=== PATIENT | male | born 1955 | race Caucasian/White ===

== ENCOUNTER 2018-01-31 18:08 | Observation (INO) ==
[2018-01-31] MEDS ORDERED: Sod Chloride 0.9% Inj 1,000 ML IV.SIG ONE (18:55)
--- NOTE | 2018-01-31 19:18 | ED ---
HPI General Chief Complaint: Altered Mental Status Stated Complaint: Poss AMS Time Seen by Provider: 01/31/18 18:38 Source: patient Mode of arrival: EMS Limitations: no limitations History of Present Illness HPI narrative: 62-year-old male with a history of dementia, Parkinson's disease , and schizophrenia presents emergency department via [facility] from [facility] living [facility] for altered mental status. According to EVAC, the facility said that patient had been acting abnormal. Note that patient had been to facility for 3 days. Patient says that he was brought to the emergency department because he has been "shaking", particularly his right hand. Patient feels like his normal self and does not feel altered as his facility states that he is. He denies fever, chills, chest pain, shortness breath, abdominal pain, back pain, leg pain. Patient denies significant weakness or any unusual sensations. Related Data Home Medications Medication Instructions Recorded Confirmed benztropine 2 mg PO BID 01/31/18 01/31/18 benztropine [Cogentin] 1 mg IM BID 01/31/18 01/31/18 docusate sodium [Colace] 100 mg PO BID 01/31/18 01/31/18 haloperidol decanoate 100 mg IM Q4W 01/31/18 01/31/18 levothyroxine [Synthroid] 100 mcg PO DAILY 01/31/18 01/31/18 mirtazapine 15 mg PO HS 01/31/18 01/31/18 olanzapine [Zyprexa] 20 mg PO DAILY 01/31/18 01/31/18 Allergies Allergy/AdvReac Type Severity Reaction Status Date / Time No Known Allergies Allergy Verified 01/31/18 18:22 Review of Systems Except as stated in HPI: all other systems reviewed are negative [facility] Medical History Medical History Dementia (Acute) Hypothyroidism (Acute) Parkinson disease (Acute) Schizophrenia (Acute) Smoker (Acute) Surgical History Surgical History No history of previous surgery (Acute) Family History Family History Other Family history non-contributory Social History Social History Substance History: No History of Abuse Second Hand Smoke Exposure: No Smoking Status: Never smoker Tobacco Type: Cigarettes How Often Do You Have a Drink Containing Alcohol: Never Recent Travel in [facility] within the Last 8 Weeks: No Recent Out of Country Travel within the Last 8 Weeks: No Immunization History Tetanus Immunization: >5 Years Hx Influenza Vaccine This Season: Yes Exam Narrative Exam Narrative: GENERAL: Well-developed, well-nourished in no apparent distress SKIN: Focused skin assessment warm/dry. HEAD: Atraumatic. Normocephalic. EYES: Pupils equal and round. No scleral icterus. No injection or drainage. EOMI ENT: No nasal bleeding or discharge. Mucous membranes pink and moist. NECK: Trachea midline. No JVD. No lymphadenopathy CARDIOVASCULAR: Regular rate and rhythm. No murmur appreciated. RESPIRATORY: No accessory muscle use. Clear to auscultation. Breath sounds equal bilaterally. GASTROINTESTINAL: Abdomen soft, non-tender, nondistended. Hepatic and splenic margins not palpable. MUSCULOSKELETAL: No obvious deformities. No clubbing. No cyanosis. No edema. NEUROLOGICAL: Awake and alert. No obvious cranial nerve deficits. Motor grossly within normal limits. Normal speech. PSYCHIATRIC: Appropriate mood and affect; insight and judgment normal. Course Initial Documented Vital Signs Temperature 98.3 F 01/31/18 18:20 Pulse Rate 93 H 01/31/18 18:20 Respiratory Rate 20 01/31/18 18:20 Blood Pressure 155/78 H 01/31/18 18:20 Pulse Oximetry 98 01/31/18 18:20 Last Documented Vital Signs Temperature 98.3 F 02/01/18 07:58 Pulse Rate 99 H 02/01/18 07:58 Respiratory Rate 16 02/01/18 07:58 Blood Pressure 182/94 H 02/01/18 07:58 Pulse Oximetry 95 02/01/18 07:58 Medical Decision Making CHRIS Attestation CHRIS supervised visit: Yes Attestation: I, Dr. Anthony, have reviewed the advance practice practitioner's documentation and am in agreement, met with the patient face to face, made the diagnosis, and the medical decision making was done by me. *My assessment and Findings: Patient is a 62-year-old male seen and examined by me in, apparently alert and awake and oriented when first arrived I find the patient to point restraints. When asking nursing she was dealing with a critically ill patient she states she had to restrain him because he was attempting to pull out his own IVs. The patient on my examination is stating that "he lives in the [facility]". He is oriented to self only. He states he is here because of a 45 caliber weapon. He seems to ramble and sometimes incoherent. He states that Ye told him something about the weapon but he cannot tell me what. Is unclear as to whether he is actually had a weapon. We have attempted to reach [facility] unsuccessfully currently and will continue to try and reach them for collateral history. I have added on a psychiatric screen. Shortly after my initial evaluation patient was brought to CAT scan on his way back he is now starting to scream, appears to be having what appears to be some sundowning syndrome. Labs have been reviewed and take, did receive a liter of fluid, mild elevation in troponin a good well to 0.06 which is equivocal. EKG reviewed by me is limited by artifact but does not appear to show any acute STEMI. I have placed this patient under BA. MDM Narrative Medical decision making narrative: 62-year-old male presents emergency department via [facility] from [facility] assisted living facility with altered mental status. According to EVAC, patient had been in the assisted living facility for about 3 days and decided to transport him to the emergency department for altered mental status. EVAC states patient had been shaking more frequently. Patient has a history of dementia, schizophrenia, and "frequent disorientation and confusion". Unfortunately, I do not have any further information regarding the characteristics of his altered mental status. Upon evaluation in the patient, patient states that he feels his usual self and denies any unusual unusual sensations or alterations in his mental. He denies chest pain, fever, chills or any other complaints. Upon reevaluation, patient removed his IV and states "it did not belong there". Patient also questions the reasoning for the chest x-ray and says it is not necessary. I advised that because of his altered mental status that it would be a good idea to evaluate thoroughly. I attempted to call [facility] SN[facility] 5 times while pt was in the ED without success. Labs are concerning for CK over 600, Troponin mildly elevated 0.05. No previous for comparison. 1L NS administered. CT head stable. [employer] initiated for suicidal ideations by Dr. Anthony. I recommend patient be admitted for elevated troponin and CK. Trend numbers and monitor, plan to send to psych for eval. Differential Diagnosis Differential Diagnosis: AMS, intoxication, sundowners, dementia Lab Data Result diagrams: 01/31/18 18:40 01/31/18 18:40 Lab Results 07/31/18 07/31/18 07/31/18 Range/Units 18:40 18:40 18:40 WBC 7.0 (4.0-11.0) th/mm3 RBC 4.37 L (4.50-5.90) mil/mm3 Hgb 13.4 (13.0-17.0) gm/dL Hct 39.9 (39.0-51.0) % MCV 91.3 (80.0-100.0) fL MCH 30.6 (27.0-34.0) pg MCHC 33.5 (32.0-36.0) % RDW 14.7 (11.6-17.2) % Plt Count 255 (150-450) th/mm3 MPV 7.2 (7.0-11.0) fL Neut % (Auto) 78.3 H (16.0-70.0) % Lymph % (Auto) 8.1 L (9.0-44.0) % [place] % (Auto) 9.3 H (0.0-8.0) % Eos % (Auto) 1.7 (0.0-4.0) % Baso % (Auto) 2.6 H (0.0-2.0) % Neut # (Auto) 5.5 (1.8-7.7) th/mm3 Lymph # (Auto) 0.6 L (1.0-4.8) th/mm3 [place] # (Auto) 0.7 (0.0-0.9) th/mm3 Eos # (Auto) 0.1 (0.0-0.4) th/mm3 Baso # (Auto) 0.2 (0.0-0.2) th/mm3 WBC Differential . Differential Comment Auto diff final PT 10.2 (9.8-11.6) sec INR 1.0 Ratio APTT 25.6 (24.3-30.1) sec Sodium (136-145) meq/L Potassium (3.5-5.1) meq/L Chloride (98-107) meq/L Carbon Dioxide (21.0-32.0) meq/L Anion Gap (5-15) meq/L BUN (7-18) mg/dL Creatinine (0.60-1.30) mg/dL Estimated GFR (>89) mL/min Random Glucose (74-106) mg/dL Calcium (8.5-10.1) mg/dL Total Bilirubin (0.2-1.0) mg/dL AST (15-37) U/L ALT (12-78) U/L Alkaline Phosphatase (45-117) U/L Ammonia (11-32) mcmol/L Total Creatine Kinase (39-308) U/L CK-MB (CK-2) (0.5-3.6) ng/mL CK-MB (CK-2) % (0.0-4.0) % Troponin I (0.02-0.05) ng/mL Total Protein (6.4-8.2) g/dL Albumin (3.4-5.0) g/dL TSH 1.830 (0.358-3.740) uIU/mL 01/31/18 01/31/18 Range/Units 18:40 19:00 WBC (4.0-11.0) th/mm3 RBC (4.50-5.90) mil/mm3 Hgb (13.0-17.0) gm/dL Hct (39.0-51.0) % MCV (80.0-100.0) fL MCH (27.0-34.0) pg MCHC (32.0-36.0) % RDW (11.6-17.2) % Plt Count (150-450) th/mm3 MPV (7.0-11.0) fL Neut % (Auto) (16.0-70.0) % Lymph % (Auto) (9.0-44.0) % [place] % (Auto) (0.0-8.0) % Eos % (Auto) (0.0-4.0) % Baso % (Auto) (0.0-2.0) % Neut # (Auto) (1.8-7.7) th/mm3 Lymph # (Auto) (1.0-4.8) th/mm3 [place] # (Auto) (0.0-0.9) th/mm3 Eos # (Auto) (0.0-0.4) th/mm3 Baso # (Auto) (0.0-0.2) th/mm3 WBC Differential Differential Comment PT (9.8-11.6) sec INR Ratio APTT (24.3-30.1) sec Sodium 139 (136-145) meq/L Potassium 4.0 (3.5-5.1) meq/L Chloride 108 H (98-107) meq/L Carbon Dioxide 25.3 (21.0-32.0) meq/L Anion Gap 6 (5-15) meq/L BUN 19 H (7-18) mg/dL Creatinine 1.03 (0.60-1.30) mg/dL Estimated GFR 74 L (>89) mL/min Random Glucose 105 (74-106) mg/dL Calcium 8.4 L (8.5-10.1) mg/dL Total Bilirubin 0.4 (0.2-1.0) mg/dL AST 50 H (15-37) U/L ALT 38 (12-78) U/L Alkaline Phosphatase 130 H (45-117) U/L Ammonia 27 (11-32) mcmol/L Total Creatine Kinase 663 H (39-308) U/L CK-MB (CK-2) 5.1 H (0.5-3.6) ng/mL CK-MB (CK-2) % 0.8 (0.0-4.0) % Troponin I 0.06 H (0.02-0.05) ng/mL Total Protein 7.7 (6.4-8.2) g/dL Albumin 3.4 (3.4-5.0) g/dL TSH (0.358-3.740) uIU/mL Imaging Data Radiologist's impression: Chest X-Ray 01/31/18 18:55 CONCLUSION: No acute findings. Mild scoliosis. Head CT 01/31/18 19:22 CONCLUSION: 1. No acute intracranial abnormalities. . Discharge Plan Discharge Disposition Patient Disposition: 30 Still Patient Discharge Condition Condition: Stable Discharge Details Diagnosis: Altered mental status, Elevated troponin, Elevated CK Physicians Team ED Provider: Tobi Anthony ED Midlevel Provider: Chel Kolb Primary Care Provider: UNKNOWN, Attending Provider: Benja Bah Other Providers: Avni Julian ; Narcisa Ospina Status ED Status: Left Department Discharge Information Discharge Date/Time: 01/31/18 23:49
--- NOTE | 2018-01-31 19:53 | XR ---
EXAM DATE: 01/31/2018 7:34 PM EDT AGE/SEX: 62 years / Male INDICATIONS: Cough. CLINICAL DATA: This is the patient's initial encounter. Patient reports that signs and symptoms have been present for 1 day and indicates a pain score of 0/10. MEDICAL/SURGICAL HISTORY: Dementia. Parkinson's disease. Smoker. None. COMPARISON: No prior exams available for comparison. FINDINGS: A single AP view of the chest demonstrates the lungs to be symmetrically aerated without evidence of mass, infiltrate or effusion. The cardiomediastinal contours are unremarkable. Osseous structures a re intact. CONCLUSION: No acute findings. Mild scoliosis. Electronically signed by: Cruzito Jones MD 01/31/2018 7:52 PM EDT
[2018-01-31 20:07] LABS: Baso # (Auto) 0.2 th/mm3 (0.0-0.2); Baso % (Auto) 2.6 % (0.0-2.0); Eos # (Auto) 0.1 th/mm3 (0.0-0.4); Eos % (Auto) 1.7 % (0.0-4.0); Hematocrit 39.9 % (39.0-51.0); Hemoglobin 13.4 gm/dL (13.0-17.0); Lymph # (Auto) 0.6 th/mm3 (1.0-4.8); Lymph % (Auto) 8.1 % (9.0-44.0); Mean Corpuscular HGB Conc 33.5 % (32.0-36.0); Mean Corpuscular Hemoglobin 30.6 pg (27.0-34.0); Mean Corpuscular Volume 91.3 fL (80.0-100.0); Mean Platelet Volume 7.2 fL (7.0-11.0); Mono # (Auto) 0.7 th/mm3 (0.0-0.9); Mono % (Auto) 9.3 % (0.0-8.0); Neut # (Auto) 5.5 th/mm3 (1.8-7.7); Neut % (Auto) 78.3 % (16.0-70.0); Platelet Count 255 th/mm3 (150-450); Red Blood Count 4.37 mil/mm3 (4.50-5.90); Red Cell Distribution Width 14.7 % (11.6-17.2)
[2018-01-31 20:16] LABS: Activated Partial Thrombo Time 25.6 sec (24.3-30.1); Prothrombin Time 10.2 sec (9.8-11.6)
[2018-01-31 20:19] LABS: Alanine Aminotransferase 38 U/L (12-78); Albumin 3.4 g/dL (3.4-5.0); Anion Gap 6 meq/L (5-15); Aspartate Aminotransferase 50 U/L (15-37); Blood Urea Nitrogen 19 mg/dL (7-18); Calcium 8.4 mg/dL (8.5-10.1); Carbon Dioxide 25.3 meq/L (21.0-32.0); Chloride 108 meq/L (98-107); Glomerular Filtration Rate 74 mL/min (>89); Glucose,Random 105 mg/dL (74-106); Sodium 139 meq/L (136-145)
[2018-01-31 20:23] LABS: Alkaline Phosphatase 130 U/L (45-117); Creatine Kinase 663 U/L (39-308); Total Protein 7.7 g/dL (6.4-8.2); Troponin I 0.06 ng/mL (0.02-0.05)
--- NOTE | 2018-01-31 20:28 | CT ---
EXAM DATE: 01/31/2018 8:15 PM EDT AGE/SEX: 62 years / Male INDICATIONS: Altered mental status. CLINICAL DATA: This is the patient's initial encounter. Patient reports that signs and symptoms have been present for 1 day and indicates a pain score of 0/10. MEDICAL/SURGICAL HISTORY: None. None. RADIATION DOSE: 36.49 CTDI (mGy) COMPARISON: [facility] [place], CT BRAIN W/O CONTRAST, 12/29/2017. . TECHNIQUE: CT of the head without contrast. Using automated exposure control and adjustment of the mA and/or kV according to patient size, radiation dose was kept as low as reasonably achievable to ob tain optimal diagnostic quality images. DICOM format image data is available electronically for revi ew and comparison. FINDINGS: Cerebrum: The ventricles are normal for age. No evidence of midline shift, mass lesion, hemorrhage or acute infarction. No extraaxial fluid collections are seen. Posterior Fossa: The cerebellum and brainstem are intact. The 4th ventricle is midline. The cerebe llopontine angle is unremarkable. Extracranial: The visualized portion of the orbits is intact. Skull: The calvaria is intact. No evidence of skull fracture. CONCLUSION: 1. No acute intracranial abnormalities. . Electronically signed by: Cruzito Jones MD 01/31/2018 8:27 PM EDT
[2018-01-31 20:35] LABS: CKMB Percent 0.8 % (0.0-4.0); Creatine Kinase MB 5.1 ng/mL (0.5-3.6)
[2018-01-31] MEDS ORDERED: Temazepam 15 MG Capsule PO PRN (22:06)
[2018-01-31] MEDS ORDERED: Bisacodyl 10 MG Supp RECTAL PRN (22:06)
[2018-01-31] MEDS: Sod Chloride 0.9% Inj 1,000 ML IV.CONT SCH (22:54)
--- NOTE | 2018-02-01 00:55 | P.HPIM ---
History of Present Illness Primary Care Physician: UNKNOWN History of Present Illness: 62-year-old male with a history of dementia, Parkinson's, schizophrenia who presents from assisted living due to altered mental status. Reportedly shaking. Patient himself says that he can hear the blood in his veins, says he is hearing voices and seeing things. He says he feels fine however. Denies any chest pain, shortness breath, nausea, vomiting. He is not amenable to psychiatric assistance. The muscle pain. Review of Systems All other systems reviewed negative except as stated in HPI PMFSH - History History Provided By: Patient - Medical History Medical History: Medical History (Last Updated 01/31/18 @ 18:34 by Flory Ding) Dementia Hypothyroidism Parkinson disease Schizophrenia Smoker - Surgical History Surgical History: Surgical History (Last Updated 01/31/18 @ 18:29 by Flory Ding) No history of previous surgery - Family History Family History: Family History (Last Updated 02/01/18 @ 00:45 by German Adams MD) Other Family history non-contributory - Tobacco History Second Hand Smoke Exposure: No Tobacco Use In Past 30 Days: Yes Smoking Status: Never smoker Tobacco Type: Cigarettes - Alcohol History How Often Do You Have a Drink Containing Alcohol: Never - Substance Use History Substance History: No History of Abuse - Travel History Recent Travel in the [place] Within the Last 8 Weeks: No Recent Travel Out of the Country Within the Last 8 Weeks: No - Immunization History Tetanus Immunization: >5 Years Hx Influenza Vaccine This Season: Yes Medications and Allergies Active Medications: Active Medications Al Hydroxide/Mg Hydroxide (Milk Of Magnesia Liq) 30 ml PO Q12H PRN PRN Reason: Mild Constipation Bisacodyl (Dulcolax Supp) 10 mg RECTAL DAILY PRN PRN Reason: SEVERE CONSITIPATION Sodium Chloride (Ns Inj) 1,000 mls @ 200 mls/hr IV.CONT .Q5H KAY Last Admin: 01/31/18 22:54 Dose: 200 mls/hr Lactulose (Lactulose Liq) 30 ml PO DAILY PRN PRN Reason: SEVERE CONSITIPATION Senna/Docusate Sodium (Araseli-Colace) 1 tab PO BID KAY Sennosides (Senokot) 17.2 mg PO Q12H PRN PRN Reason: Moderate Constipation Sodium Chloride (Ns Flush) 2 ml IV.FLUSH PRN PRN PRN Reason: FLUSH AFTER USING IV ACCESS Last Admin: 01/31/18 19:07 Dose: 2 ml Temazepam (Restoril) 15 mg PO HS PRN PRN Reason: INSOMNIA Allergies Allergy/AdvReac Type Severity Reaction Status Date / Time No Known Allergies Allergy Verified 01/31/18 18:22 Home Medications Medication Instructions Recorded Confirmed Type benztropine 2 mg PO BID 01/31/18 01/31/18 History benztropine [Cogentin] 1 mg IM BID 01/31/18 01/31/18 History docusate sodium [Colace] 100 mg PO BID 01/31/18 01/31/18 History haloperidol decanoate 100 mg IM Q4W 01/31/18 01/31/18 History levothyroxine [Synthroid] 100 mcg PO DAILY 01/31/18 01/31/18 History mirtazapine 15 mg PO HS 01/31/18 01/31/18 History olanzapine [Zyprexa] 20 mg PO DAILY 01/31/18 01/31/18 History Exam Vital signs: Vital Signs 01/31/18 18:20 01/31/18 18:56 01/31/18 20:56 Temperature 98.3 F Pulse Rate 93 H 86 92 H Respiratory Rate 20 16 Blood Pressure 155/78 H 141/81 H Pulse Oximetry 98 98 95 01/31/18 23:48 02/01/18 00:00 Temperature 98.4 F Pulse Rate 89 Respiratory Rate 16 17 Blood Pressure 141/76 H Pulse Oximetry 96 Intake & Output 01/31/18 01/31/18 02/01/18 06:59 18:59 06:59 Intake Total 1000 / 1000 Balance 1000 / 1000 Weight 81.647 kg Intake: IV 1000 / 1000 NS Inj 1,000 ML @ Wide Open IV. 1000 / 1000 SIG BOLUS ONE Rx#:[id number] Narrative: GENERAL: Patient lying in bed. Appears comfortable. SKIN: Warm and dry. HEAD: Atraumatic. Normocephalic. EYES: Pupils equal and round. No scleral icterus. No injection or drainage. ENT: No nasal bleeding or discharge. Mucous membranes pink and moist. NECK: Trachea midline. No JVD. CARDIOVASCULAR: Regular rate and rhythm. RESPIRATORY: No accessory muscle use. Clear to auscultation. Breath sounds equal bilaterally. GASTROINTESTINAL: Abdomen soft, non-tender, nondistended. Hepatic and splenic margins not palpable. MUSCULOSKELETAL: Extremities without clubbing, cyanosis, or edema. No obvious deformities. NEUROLOGICAL: Awake and alert. Bilateral tremors, stiffness consistent with Parkinson's. PSYCHIATRIC: Appropriate mood and affect; insight and judgment normal. Results - Labs CBC & Chem 7: 01/31/18 18:40 01/31/18 18:40 Labs: Short CBC 01/31/18 Range/Units 18:40 WBC 7.0 (4.0-11.0) th/mm3 Hgb 13.4 (13.0-17.0) gm/dL Hct 39.9 (39.0-51.0) % Plt Count 255 (150-450) th/mm3 BMP 01/31/18 18:40 Sodium 139 Potassium 4.0 Chloride 108 H Carbon Dioxide 25.3 BUN 19 H Creatinine 1.03 Calcium 8.4 L Cardiac Enzymes 01/31/18 Range/Units 18:40 Total Creatine Kinase 663 H (39-308) U/L CK-MB (CK-2) 5.1 H (0.5-3.6) ng/mL Troponin I 0.06 H (0.02-0.05) ng/mL Liver Function 01/31/18 Range/Units 18:40 Total Bilirubin 0.4 (0.2-1.0) mg/dL AST 50 H (15-37) U/L ALT 38 (12-78) U/L Alkaline Phosphatase 130 H (45-117) U/L Albumin 3.4 (3.4-5.0) g/dL - Imaging Impressions Chest X-Ray 01/31/18 18:55 CONCLUSION: No acute findings. Mild scoliosis. Head CT 01/31/18 19:22 CONCLUSION: 1. No acute intracranial abnormalities. . Caprini VTE Risk Assessment Caprini VTE Risk Assessment: No/Low Risk (score <= 1) Caprini Risk Assessment Model: Point Value = 1 Point Value = 2 Point Value = 3 Point Value = 5 Age 41-60 Minor surgery BMI > 25 kg/m2 Swollen legs Varicose veins or History of unexplained or recurrent spontaneous Oral contraceptives or hormone replacement Sepsis (< 1 month) Serious lung disease, including pneumonia (< 1 month) Abnormal pulmonary function Acute myocardial infarction Congestive heart failure (< 1 month) History of inflammatory bowel disease Medical patient at bed rest Age 61-74 Arthroscopic surgery Major open surgery (> 45 min) Laparoscopic surgery (> 45 min) Malignancy Confined to bed (> 72 hours) Immobilizing plaster cast Central venous access Age >= 75 History of VTE Family history of VTE Factor V Leiden Prothrombin [id number] Lupus anticoagulant Anticardiolipin antibodies Elevated serum homocysteine Heparin-induced thrombocytopenia Other congenital or acquired thrombophilia Stroke (< 1 month) Elective arthroplasty Hip, pelvis, or leg fracture Acute spinal cord injury (< 1 month) Prophylaxis Regimen: Total Risk Factor Score Risk Level Prophylaxis Regimen 0-1 Low Early ambulation 2 Moderate Order ONE of the following: *Sequential Compression Device (SCD) *Heparin 5000 units SQ BID 3-4 Higher Order ONE of the following medications: *Heparin 5000 units SQ TID *Enoxaparin/Lovenox 40 mg SQ daily (WT < 150 kg, CrCl > 30 mL/min) *Enoxaparin/Lovenox 30 mg SQ daily (WT < 150 kg, CrCl > 10-29 mL/min) *Enoxaparin/Lovenox 30 mg SQ BID (WT < 150 kg, CrCl > 30 mL/min) AND/OR *Sequential Compression Device (SCD) 5 or more Highest Order ONE of the following medications: *Heparin 5000 units SQ TID (Preferred with Epidurals) *Enoxaparin/Lovenox 40 mg SQ daily (WT < 150 kg, CrCl > 30 mL/min) *Enoxaparin/Lovenox 30 mg SQ daily (WT < 150 kg, CrCl > 10-29 mL/min) *Enoxaparin/Lovenox 30 mg SQ BID (WT < 150 kg, CrCl > 30 mL/min) AND *Sequential Compression Device (SCD) Assessment and Plan - Plan //Psychosis = Consult psychiatry. //Parkinson's disease. -Very difficult situation with treatment for Parkinson's as well as history of. Will consult neurology. Hopefully can find a medication that will exacerbate his psychosis. //Elevation in creatinine kinase, mild rhabdomyolysis //Dehydration. Patient does have bilateral tremor. Uncertain chronicity. Unable to contact facility. We will hold off on neuroleptics at this time. IV fluids. Monitor. Discussed Condition With: Patient, nurse, ED physician. H&P: Quality - VTE Deep Vein Thrombosis/Pulmonary Embolism Present on Admission: No
[2018-02-01] MEDS: Sod Chloride 0.9% Inj 1,000 ML IV.CONT SCH ×2 (03:47→23:01)
--- NOTE | 2018-02-01 10:32 | P.CONNEU ---
History of Present Illness Service: Neurology Consult date: 02/01/18 Requesting Physician: German Adams Reason for Consult: Tremor Primary Care Provider: UNKNOWN Chief Complaint: Tremor, Altered Mental Status History of Present Illness: 62 y/o male with hx of schizophrenia since his 20s presents to the ER with altered mental status and increased tremor. Pt reports he takes Haldol for his tremors. He also states he has been having increased hallucinations. He is a poor historian and cannot tell me when he began having change in mental status or how long he has been having hallucinations. He states his tremors come and go and can be bothersome at times Review of Systems All other systems reviewed negative except as stated in HPI PMFSH - History History Provided By: Patient - Medical History Medical History: Medical History (Last Updated 01/31/18 @ 18:34 by Flory Dnig) Dementia Hypothyroidism Parkinson disease Schizophrenia Smoker - Surgical History Surgical History: Surgical History (Last Updated 01/31/18 @ 18:29 by Flory Ding) No history of previous surgery - Family History Family History: Family History (Last Updated 02/01/18 @ 00:45 by German Adams MD) Other Family history non-contributory - Tobacco History Second Hand Smoke Exposure: No Tobacco Use In Past 30 Days: Yes Smoking Status: Never smoker Tobacco Type: Cigarettes - Alcohol History How Often Do You Have a Drink Containing Alcohol: Never - Substance Use History Substance History: No History of Abuse - Travel History Recent Travel in the [place] Within the Last 8 Weeks: No Recent Travel Out of the Country Within the Last 8 Weeks: No - Immunization History Tetanus Immunization: >5 Years Hx Influenza Vaccine This Season: Yes Medications and Allergies Allergies Allergy/AdvReac Type Severity Reaction Status Date / Time No Known Allergies Allergy Verified 01/31/18 18:22 Home Medications Medication Instructions Recorded Confirmed Type benztropine 2 mg PO BID 01/31/18 01/31/18 History benztropine [Cogentin] 1 mg IM BID 01/31/18 01/31/18 History docusate sodium [Colace] 100 mg PO BID 01/31/18 01/31/18 History haloperidol decanoate 100 mg IM Q4W 01/31/18 01/31/18 History levothyroxine [Synthroid] 100 mcg PO DAILY 01/31/18 01/31/18 History mirtazapine 15 mg PO HS 01/31/18 01/31/18 History olanzapine [Zyprexa] 20 mg PO DAILY 01/31/18 01/31/18 History Active Medications: Active Medications Al Hydroxide/Mg Hydroxide (Milk Of Magnesia Liq) 30 ml PO Q12H PRN PRN Reason: Mild Constipation Bisacodyl (Dulcolax Supp) 10 mg RECTAL DAILY PRN PRN Reason: SEVERE CONSITIPATION Clonidine HCl (Catapres) 0.1 mg PO Q6H PRN PRN Reason: SBP>180, DBP>100, HR>65 Docusate Sodium (Colace) 100 mg PO BID [facility] Sodium Chloride (Ns Inj) 1,000 mls @ 100 mls/hr IV.CONT .Q10H [facility] Last Admin: 02/01/18 03:47 Dose: 200 mls/hr Lactulose (Lactulose Liq) 30 ml PO DAILY PRN PRN Reason: SEVERE CONSITIPATION Levothyroxine Sodium (Synthroid) 100 mcg PO DAILY@0600 [facility] Senna/Docusate Sodium (Araseli-Colace) 1 tab PO BID [facility] Sennosides (Senokot) 17.2 mg PO Q12H PRN PRN Reason: Moderate Constipation Sodium Chloride (Ns Flush) 2 ml IV.FLUSH PRN PRN PRN Reason: FLUSH AFTER USING IV ACCESS Last Admin: 01/31/18 19:07 Dose: 2 ml Temazepam (Restoril) 15 mg PO HS PRN PRN Reason: INSOMNIA Exam Vital signs: Vital Signs 01/31/18 18:20 01/31/18 18:56 01/31/18 20:56 Temperature 98.3 F Pulse Rate 93 H 86 92 H Respiratory Rate 20 16 Blood Pressure 155/78 H 141/81 H Pulse Oximetry 98 98 95 01/31/18 23:48 02/01/18 00:00 02/01/18 04:00 Temperature 98.4 F 98.5 F Pulse Rate 89 81 Respiratory Rate 16 17 17 Blood Pressure 141/76 H 123/73 Pulse Oximetry 96 96 02/01/18 07:58 Temperature 98.3 F Pulse Rate 99 H Respiratory Rate 16 Blood Pressure 182/94 H Pulse Oximetry 95 Intake & Output 01/31/18 02/01/18 02/01/18 18:59 06:59 18:59 Intake Total 1999 Balance 1999 Weight 81.647 kg Intake: IV 1999 NS Inj 1,000 ML @ 200 mls/hr IV 999 .CONT .Q5H KAY Rx#:[id number] NS Inj 1,000 ML @ Wide Open IV. 999 SIG BOLUS ONE Rx#:[id number] - Constitutional no acute distress, somnolent - Routine HEENT Exam Head: Present: normocephalic, atraumatic Eye: Present: EOMI, PERRL - Routine Neck Exam Absent: carotid bruit - Routine Cardiovascular Exam Present: RRR - Routine Neurological Exam Pt is somnolent, though opens his eyes to command, often falls asleep during exam. Knows his name, date: [birth year], 1991, President: [place], place: [place] Intermittently follows commands. EOMi, PERRL, mild facial masking, right hand and leg rest tremor intermittently, no action tremor, no cogwheeling, moving arms against gravity, does not follow to move legs, withdraws from stimuli in feet, toes down going, f-n-f intact, does not follow for finger taps, gait withheld, speech is slow and hypophonic Results - Labs CBC & Chem 7: 01/31/18 18:40 01/31/18 18:40 Labs: Laboratory Results - last 24 hr 01/31/18 01/31/18 01/31/18 18:40 18:40 18:40 WBC 7.0 RBC 4.37 L Hgb 13.4 Hct 39.9 MCV 91.3 MCH 30.6 MCHC 33.5 RDW 14.7 Plt Count 255 MPV 7.2 Neut % (Auto) 78.3 H Lymph % (Auto) 8.1 L [place] % (Auto) 9.3 H Eos % (Auto) 1.7 Baso % (Auto) 2.6 H Neut # (Auto) 5.5 Lymph # (Auto) 0.6 L [place] # (Auto) 0.7 Eos # (Auto) 0.1 Baso # (Auto) 0.2 WBC Differential . Differential Comment Auto diff final PT 10.2 INR 1.0 APTT 25.6 Sodium Potassium Chloride Carbon Dioxide Anion Gap BUN Creatinine Estimated GFR Random Glucose Calcium Total Bilirubin AST ALT Alkaline Phosphatase Ammonia Total Creatine Kinase CK-MB (CK-2) CK-MB (CK-2) % Troponin I Total Protein Albumin TSH 1.830 01/31/18 01/31/18 18:40 19:00 WBC RBC Hgb Hct MCV MCH MCHC RDW Plt Count MPV Neut % (Auto) Lymph % (Auto) [place] % (Auto) Eos % (Auto) Baso % (Auto) Neut # (Auto) Lymph # (Auto) [place] # (Auto) Eos # (Auto) Baso # (Auto) WBC Differential Differential Comment PT INR APTT Sodium 139 Potassium 4.0 Chloride 108 H Carbon Dioxide 25.3 Anion Gap 6 BUN 19 H Creatinine 1.03 Estimated GFR 74 L Random Glucose 105 Calcium 8.4 L Total Bilirubin 0.4 AST 50 H ALT 38 Alkaline Phosphatase 130 H Ammonia 27 Total Creatine Kinase 663 H CK-MB (CK-2) 5.1 H CK-MB (CK-2) % 0.8 Troponin I 0.06 H Total Protein 7.7 Albumin 3.4 TSH - Imaging Impressions Chest X-Ray 01/31/18 18:55 CONCLUSION: No acute findings. Mild scoliosis. Head CT 01/31/18 19:22 CONCLUSION: 1. No acute intracranial abnormalities. . Review/Management - Review/Management Plan: CT head was unremarkable CXR unremarkable ammonia wnl UA pending will check EEG PD vs secondary PD due to medications, pt on Haldol and Olanzapine Hallucinations Hx of Schizophrenia tremors are mild, intermittent and no cogwheeling rigidity would avoid adding dopaminergic medications as these can increase confusion and hallucinations would hold benztropine or try to lower dose if possible as this can also contribute to hallucinations agree with psychiatry consult Addendum note pt seen examined d/w PA agree to impression,plan defer rx changes to psychiatry. eeg to be done.
--- NOTE | 2018-02-01 10:32 | ECG ---
Date Performed: 01/31/2018 Time Performed: 19:53:19 PTAGE: 62 years EKG: Sinus rhythm VOLTAGE CRITERIA FOR LVH ABNORMAL ECG Significant baseline artifact NO PREVIOUS TRACING DOCTOR: Janel Carl Interpretating Date/Time 02/01/2018 10:31:08
[2018-02-01] MEDS: Docusate Sodium 100 MG Capsule PO SCH ×2 (12:34→23:01)
[2018-02-01] MEDS: Senna/Docusate Sodium 8.6/50 MG Tablet PO SCH ×2 (12:34→23:01)
[2018-02-01] MEDS: Levothyroxine 100 MCG Tablet PO SCH (12:38)
--- NOTE | 2018-02-01 14:14 | P.CONPSY ---
Provisional Diagnosis Admission Date: January 31, 2018 22:06 [place] I.: Schizophrenia, dementia History of Present Illness Service: Medicine Primary Care Provider: UNKNOWN Chief Complaint: Tremor, Altered Mental Status History of Present Illness: The patient is a 62 -year-old man, domiciled in [facility], with hx of schizophrenia since his 20s, dementia, he is on olanzapine 20 mg at bedtime, Remeron 15 mg, who presents to the ER with altered mental status and increased tremor. He also states he has been having increased hallucinations. He is a poor historian and cannot tell me when he began having change in mental status or how long he has been having hallucinations. He states his tremors come and go and can be bothersome at times. The patient reports that he has been seeing his sister tried to treat him with a 45 gun. The patient is oppositional, irritable, just answer selectively to some of my questions. He does denies suicidal enemas ideation, he denies visual and auditory hallucinations at this moment. The patient is oriented to person, but confused and partially oriented in time and place. The patient was given olanzapine 10 mg IM previously to this encounter due to agitation. He was already seen by neurology given his tremors: CT head was unremarkable. CXR unremarkable ammonia wnl. Urine is pending. Neurology recommendations were : tremors are mild, intermittent and no cogwheeling rigiditywould avoid adding dopaminergic medications as these can increase confusion and hallucinations. would hold benztropine or try to lower dose if possible as this can also contribute to hallucinations agree with psychiatry consult. [facility] - History History Provided By: Patient - Medical History Medical History: Medical History (Last Updated 01/31/18 @ 18:34 by Flory Ding) Dementia Hypothyroidism Parkinson disease Schizophrenia Smoker - Surgical History Surgical History: Surgical History (Last Updated 01/31/18 @ 18:29 by Flory Ding) No history of previous surgery - Family History Family History: Family History (Last Updated 02/01/18 @ 00:45 by German Adams MD) Other Family history non-contributory - Tobacco History Second Hand Smoke Exposure: No Tobacco Use In Past 30 Days: Yes Smoking Status: Never smoker Tobacco Type: Cigarettes - Alcohol History How Often Do You Have a Drink Containing Alcohol: Never - Substance Use History Substance History: No History of Abuse - Travel History Recent Travel in the [place] Within the Last 8 Weeks: No Recent Travel Out of the Country Within the Last 8 Weeks: No - Immunization History Tetanus Immunization: >5 Years Hx Influenza Vaccine This Season: Yes Medications and Allergies Active Medications: Active Medications Al Hydroxide/Mg Hydroxide (Milk Of Magnesia Liq) 30 ml PO Q12H PRN PRN Reason: Mild Constipation Bisacodyl (Dulcolax Supp) 10 mg RECTAL DAILY PRN PRN Reason: SEVERE CONSITIPATION Clonidine HCl (Catapres) 0.1 mg PO Q6H PRN PRN Reason: SBP>180, DBP>100, HR>65 Last Admin: 02/01/18 12:40 Dose: 0.1 mg Docusate Sodium (Colace) 100 mg PO BID [facility] Last Admin: 02/01/18 12:34 Dose: 100 mg Sodium Chloride (Ns Inj) 1,000 mls @ 100 mls/hr IV.CONT .Q10H [facility] Last Admin: 02/01/18 03:47 Dose: 200 mls/hr Lactulose (Lactulose Liq) 30 ml PO DAILY PRN PRN Reason: SEVERE CONSITIPATION Levothyroxine Sodium (Synthroid) 100 mcg PO DAILY@0600 [facility] Last Admin: 02/01/18 12:38 Dose: 100 mcg Quetiapine Fumarate (Seroquel) 25 mg PO BID [facility] Senna/Docusate Sodium (Araseli-Colace) 1 tab PO BID [facility] Last Admin: 02/01/18 12:34 Dose: 1 tab Sennosides (Senokot) 17.2 mg PO Q12H PRN PRN Reason: Moderate Constipation Sodium Chloride (Ns Flush) 2 ml IV.FLUSH PRN PRN PRN Reason: FLUSH AFTER USING IV ACCESS Last Admin: 01/31/18 19:07 Dose: 2 ml Temazepam (Restoril) 15 mg PO HS PRN PRN Reason: INSOMNIA Allergies Allergy/AdvReac Type Severity Reaction Status Date / Time No Known Allergies Allergy Verified 01/31/18 18:22 Home Medications Medication Instructions Recorded Confirmed Type benztropine 2 mg PO BID 01/31/18 01/31/18 History benztropine [Cogentin] 1 mg IM BID 01/31/18 01/31/18 History docusate sodium [Colace] 100 mg PO BID 01/31/18 01/31/18 History haloperidol decanoate 100 mg IM Q4W 01/31/18 01/31/18 History levothyroxine [Synthroid] 100 mcg PO DAILY 01/31/18 01/31/18 History mirtazapine 15 mg PO HS 01/31/18 01/31/18 History olanzapine [Zyprexa] 20 mg PO DAILY 01/31/18 01/31/18 History Exam Vital signs: Vital Signs 01/31/18 18:20 01/31/18 18:56 01/31/18 20:56 Temperature 98.3 F Pulse Rate 93 H 86 92 H Respiratory Rate 20 16 Blood Pressure 155/78 H 141/81 H Pulse Oximetry 98 98 95 01/31/18 23:48 02/01/18 00:00 02/01/18 04:00 Temperature 98.4 F 98.5 F Pulse Rate 89 81 Respiratory Rate 16 17 17 Blood Pressure 141/76 H 123/73 Pulse Oximetry 96 96 02/01/18 07:58 Temperature 98.3 F Pulse Rate 99 H Respiratory Rate 16 Blood Pressure 182/94 H Pulse Oximetry 95 Intake & Output 01/31/18 02/01/18 02/01/18 18:59 06:59 18:59 Intake Total 1999 Balance 1999 Weight 81.647 kg Intake: IV 1999 NS Inj 1,000 ML @ 200 mls/hr IV 1000 / 1000 .CONT .Q5H [facility] Rx#:[id number] NS Inj 1,000 ML @ Wide Open IV. 1000 / 1000 SIG BOLUS ONE Rx#:[id number] Mental Status Examination Appearance: Disheveled Consciousness: Clouded Orientation: Person, Place Speech: Hesitant, Slow Language: Adequate Fund of Knowledge: Adequate Memory: Impaired Mood: Oppositional Affect: Irritable Thought Process & Associations: Loose associations Thought Content: Bizarre thinking Hallucination Type: Visual Delusion Type: Paranoid Suicidal Ideation: No Suicidal Plan: No Suicidal Intention: No Homicidal Ideation: No Homicidal Plan: No Homicidal Intention: No Insight: Poor Judgment: Poor Assessment and Plan - Assessment (1) Schizophrenia Code(s): F20.9 - Schizophrenia, unspecified Status: Acute - Plan Plan: Estimated LOS: [] days On psychiatric evaluation today the patient presents quite oppositional and irritable, he endorses visual hallucinations "I am watching my sister trying to treatment with a 45". Allegedly, the patient also has been agitated, aggressive. He has psychiatric history of schizophrenia for many years, psychiatric hospitalizations, given her level of psychosis, the patient will be admitted in psychiatry. However, additional medical reasons for psychosis and delirium and she will be investigated, urine test is still pending. I will restart the olanzapine 20 mg at bedtime, Remeron 50 mg at bedtime. Avoid benzodiazepines and anticholinergic medications since this medication can worsen cognition. Case discussed with primary medical team Justification for Continued Inpatient Stay: To be admitted in psychiatry was medically stable
--- NOTE | 2018-02-01 16:24 | P.PN ---
Subjective Interval history: Follow-up visit dementia, Parkinson's, schizophrenia, altered mental status. Patient seen and examined today. Sister at the bedside, Kristen. Patient is slow to respond to any questions and commands. Able to follow some. Denies pain or discomfort. Denies headache, dizziness. He repetitively saying " please don't make me think hard." When asked if he is hallucinating seeing and hearing things patient replies "they have all been erased." He is not able to elaborate on this response. Physical Exam Vital signs: Vital Signs 01/31/18 18:20 01/31/18 18:56 01/31/18 20:56 Temperature 98.3 F Pulse Rate 93 H 86 92 H Respiratory Rate 20 16 Blood Pressure 155/78 H 141/81 H Pulse Oximetry 98 98 95 01/31/18 23:48 02/01/18 00:00 02/01/18 04:00 Temperature 98.4 F 98.5 F Pulse Rate 89 81 Respiratory Rate 16 17 17 Blood Pressure 141/76 H 123/73 Pulse Oximetry 96 96 02/01/18 07:58 02/01/18 16:00 Temperature 98.3 F 98.1 F Pulse Rate 99 H 88 Respiratory Rate 16 16 Blood Pressure 182/94 H 143/71 H Pulse Oximetry 95 97 Intake & Output 01/31/18 02/01/18 02/01/18 18:59 06:59 18:59 Intake Total 1999 Balance 1999 Weight 81.647 kg Intake: IV 1999 NS Inj 1,000 ML @ 200 mls/hr IV 1000 / 1000 .CONT .Q5H KAY Rx#:[id number] NS Inj 1,000 ML @ Wide Open IV. 1000 / 1000 SIG BOLUS ONE Rx#:[id number] Narrative: GENERAL: This is a thin appearing patient in no apparent distress. SKIN: Warm and dry HEENT: Normocephalic. Pupils equal round and reactive. Nose without bleeding. Airway patent. NECK: Trachea midline.Supple. CARDIOVASCULAR: Regular rate and rhythm without murmurs, gallops, or rubs. RESPIRATORY: Clear to auscultation. Breath sounds equal bilaterally. No wheezes , rales, or rhonchi. GASTROINTESTINAL: Abdomen soft, non-tender, nondistended. Bowel Sounds normoactive x4. MUSCULOSKELETAL: Extremities without clubbing, cyanosis, or edema. NEUROLOGICAL: Awake and alert. Moves all extremities, occasional rigidity noted. Slow speech. Results - Labs CBC & Chem 7: 01/31/18 18:40 01/31/18 18:40 Laboratory Results - last 24 hr 01/31/18 01/31/18 01/31/18 18:40 18:40 18:40 WBC 7.0 RBC 4.37 L Hgb 13.4 Hct 39.9 MCV 91.3 MCH 30.6 MCHC 33.5 RDW 14.7 Plt Count 255 MPV 7.2 Neut % (Auto) 78.3 H Lymph % (Auto) 8.1 L [place] % (Auto) 9.3 H Eos % (Auto) 1.7 Baso % (Auto) 2.6 H Neut # (Auto) 5.5 Lymph # (Auto) 0.6 L [place] # (Auto) 0.7 Eos # (Auto) 0.1 Baso # (Auto) 0.2 WBC Differential . Differential Comment Auto diff final PT 10.2 INR 1.0 APTT 25.6 Sodium Potassium Chloride Carbon Dioxide Anion Gap BUN Creatinine Estimated GFR Random Glucose Calcium Total Bilirubin AST ALT Alkaline Phosphatase Ammonia Total Creatine Kinase CK-MB (CK-2) CK-MB (CK-2) % Troponin I Total Protein Albumin Vitamin B12 TSH 1.830 01/31/18 01/31/18 02/01/18 18:40 19:00 12:46 WBC RBC Hgb Hct MCV MCH MCHC RDW Plt Count MPV Neut % (Auto) Lymph % (Auto) [place] % (Auto) Eos % (Auto) Baso % (Auto) Neut # (Auto) Lymph # (Auto) [place] # (Auto) Eos # (Auto) Baso # (Auto) WBC Differential Differential Comment PT INR APTT Sodium 139 Potassium 4.0 Chloride 108 H Carbon Dioxide 25.3 Anion Gap 6 BUN 19 H Creatinine 1.03 Estimated GFR 74 L Random Glucose 105 Calcium 8.4 L Total Bilirubin 0.4 AST 50 H ALT 38 Alkaline Phosphatase 130 H Ammonia 27 Total Creatine Kinase 663 H CK-MB (CK-2) 5.1 H CK-MB (CK-2) % 0.8 Troponin I 0.06 H Total Protein 7.7 Albumin 3.4 Vitamin B12 113 L TSH - Imaging Impressions Chest X-Ray 01/31/18 18:55 CONCLUSION: No acute findings. Mild scoliosis. Head CT 01/31/18 19:22 CONCLUSION: 1. No acute intracranial abnormalities. . Assessment and Plan - Assessment (1) Altered mental status Code(s): R41.82 - Altered mental status, unspecified Status: Acute (2) Elevated CK Code(s): R74.8 - Abnormal levels of other serum enzymes Status: Acute (3) Schizophrenia Code(s): F20.9 - Schizophrenia, unspecified Status: Acute - Plan 62-year-old male with a history of dementia, Parkinson's, schizophrenia who presents from assisted living due to altered mental status. Psychosis History of schizophrenia -Sister Kristen at the bedside during examination. States that patient lives at [facility] assisted living facility where in she suspects that his medication has not been given to him appropriately. Patient is supposed to be getting Cogentin and the facility states that they have run out of the medication patient has not taken the medication for approximately 2-3 days before she was able to handout the medication to the patient. Patient was also supposedly on Zyprexa and Haldol to be weaned off on Haldol however was not really weaned off of the Haldol medication. -Psychiatry consulted appreciate recommendation, plan to transfer patient to medical psychiatry unit when cleared medically. Encephalopathy probably toxic secondary to medication Parkinson's disease -Neurology was consulted -Medications could exacerbate his psychosis -EEG pending -CT of the head without acute abnormalities -Ammonia within normal 27, TSH within normal, pending UA Elevated CK, mild rhabdomyolysis CK 663 Dehydration -Neuroleptics have been held -Seen yesterday having bilateral tremor. During this exam no noted tremors. DVT prop SCD Code Status: Full code Discussed Condition With: Patient, nursing Discharge Planning: Plan to transfer to medical psych unit, pending further studies. (1) Altered mental status Qualifiers: Altered mental status type: disorientation Qualified Code(s): R41.0 - Disorientation, unspecified
[2018-02-01] MEDS: QUEtiapine 25 MG Tablet PO SCH ×2 (18:27→23:01)
--- NOTE | 2018-02-01 19:02 | MG ---
cc: Narcisa Ospina MD EEG NUMBER: [id number] CLINICAL HISTORY: Room H91, awake, drowsy, asleep. Photic done. In the right hand, there is constant tremor throughout the study. CT is negative. A 62-year-old man with a history of schizophrenia presents with altered mental status on Haldol as well as Zyprexa. History also of dementia and hypothyroidism. Smoker. DESCRIPTION OF RECORD: The patient has a normal alpha rhythm of 9 Hz, 20-60 microvolts. Symmetrical background. Quite a bit of artifact in the EKG portion. The tremor in the right hand does not correlate with any epileptiform features. Photic stimulation does elicit a posterior driving response. IMPRESSION: Normal appearing electroencephalogram without any epileptiform features. Clinical correlation. Narcisa Ospina MD DF/MARIA VICTORIA , 06:46 PM , 06:53 PM
[2018-02-01] MEDS ORDERED: Mirtazapine 15 MG Tablet PO SCH (21:00)
[2018-02-02] MEDS: Levothyroxine 100 MCG Tablet PO SCH (06:35)
[2018-02-02 07:49] LABS: Baso % (Auto) 0.6 % (0.0-2.0); Eos # (Auto) 0.2 th/mm3 (0.0-0.4); Eos % (Auto) 2.6 % (0.0-4.0); Hematocrit 41.5 % (39.0-51.0); Hemoglobin 13.6 gm/dL (13.0-17.0); Lymph # (Auto) 1.1 th/mm3 (1.0-4.8); Lymph % (Auto) 17.7 % (9.0-44.0); Mean Corpuscular HGB Conc 32.9 % (32.0-36.0); Mean Corpuscular Hemoglobin 30.5 pg (27.0-34.0); Mean Corpuscular Volume 92.6 fL (80.0-100.0); Mean Platelet Volume 7.2 fL (7.0-11.0); Mono # (Auto) 0.7 th/mm3 (0.0-0.9); Mono % (Auto) 11.5 % (0.0-8.0); Neut # (Auto) 4.1 th/mm3 (1.8-7.7); Neut % (Auto) 67.6 % (16.0-70.0); Platelet Count 229 th/mm3 (150-450); Red Blood Count 4.48 mil/mm3 (4.50-5.90); Red Cell Distribution Width 14.5 % (11.6-17.2); White Blood Count 6.1 th/mm3 (4.0-11.0)
[2018-02-02 08:05] LABS: Albumin 3.1 g/dL (3.4-5.0); Anion Gap 6 meq/L (5-15); Aspartate Aminotransferase 43 U/L (15-37); Blood Urea Nitrogen 11 mg/dL (7-18); Calcium 8.5 mg/dL (8.5-10.1); Chloride 108 meq/L (98-107); Glomerular Filtration Rate Greater Than 89 mL/min (>89); Glucose,Random 80 mg/dL (74-106); Potassium 3.7 meq/L (3.5-5.1); Sodium 141 meq/L (136-145)
[2018-02-02 08:08] LABS: Alanine Aminotransferase 35 U/L (12-78); Alkaline Phosphatase 119 U/L (45-117); Creatine Kinase 380 U/L (39-308)
[2018-02-02 08:27] LABS: CKMB Percent 0.5 % (0.0-4.0)
[2018-02-02] MEDS ORDERED: OLANZapine 10 MG Tablet PO SCH (09:00)
[2018-02-02] MEDS: QUEtiapine 25 MG Tablet PO SCH ×2 (09:10→12:08)
[2018-02-02] MEDS: Senna/Docusate Sodium 8.6/50 MG Tablet PO SCH ×2 (09:11→12:08)
[2018-02-02] MEDS: Docusate Sodium 100 MG Capsule PO SCH ×2 (09:11→12:10)
--- NOTE | 2018-02-02 09:22 | P.DS ---
Date of admission: 01/31/18 22:06 Primary care physician: UNKNOWN Attending physician on discharge: Benja Bah Anticipated date of discharge: 02/02/18 Brief History from admission: 62-year-old male with a history of dementia, Parkinson's, schizophrenia who presents from assisted living due to altered mental status. Reportedly shaking. Patient himself says that he can hear the blood in his veins, says he is hearing voices and seeing things. He says he feels fine however. Denies any chest pain, shortness breath, nausea, vomiting. He is not amenable to psychiatric assistance. The muscle pain. DS: Diagnosis - Discharge Diagnosis (1) Altered mental status Status: Acute (2) Elevated CK Status: Acute (3) Schizophrenia Status: Acute DS: Summary Hospital Course: 62-year-old male with a history of dementia, Parkinson's, schizophrenia who presents from assisted living due to altered mental status. CT of the head showed no acute intracranial abnormality. Initially patient had been noted to have tremors, hallucinations. Psychiatry has seen and evaluated patient and has adjusted his medications. Neurology was also consulted and has seen the patient and recommends an EEG and adjustment of his psych medications. They suspect that the patient's medication has been affecting his movement and with increased hallucinations. Suspect Parkinson disease versus Parkinson's due to medication. Evaluated that he was on Haldol and Zyprexa prior to admission. His Haldol has been held. Neurology recommends avoiding adding dopaminergic medications as this can increase the confusion and hallucination of the patient. Also hold benztropine which patient was on prior or lowering the dose to decrease hallucination. EEG showed normal-appearing electroencephalogram without any epileptiform features. Mild rhabdo with CK of 663, improve at 380. Patient can continue with IV fluids for now. However he keeps on pulling off his IV, needing as needed medication for agitation. He is medically cleared for discharge to go to medical psychiatry unit. Plan for neurology to follow the patient and medicine to follow the patient in the unit. - Time Spent with Patient Total time spent providing and/or coordinating discharge services: Less than 30 minutes - Quality: VTE Deep Vein Thrombosis/Pulmonary Embolism Present on Admission: No Exam Vital signs: Vital Signs 02/01/18 16:00 02/01/18 20:00 02/01/18 23:55 Temperature 98.1 F 98.4 F 98.3 F Pulse Rate 88 86 85 Respiratory Rate 16 17 17 Blood Pressure 143/71 H 120/74 147/78 H Pulse Oximetry 97 95 96 02/02/18 07:45 Temperature 98.4 F Pulse Rate 111 H Respiratory Rate 16 Blood Pressure 174/87 H Pulse Oximetry 97 Intake & Output 02/01/18 02/02/18 02/02/18 18:59 06:59 18:59 Intake Total 1800 / 1800 1000 / 1000 Output Total 1200 / 1200 Balance 600 / 600 1000 / 1000 Intake: IV 1000 / 1000 1000 / 1000 NS Inj 1,000 ML @ 100 mls/hr IV 1000 / 1000 1000 / 1000 .CONT .Q10H KAY Rx#:[id number] Oral 800 / 800 Output: Urine 1200 / 1200 Narrative: GENERAL: This is a thin appearing patient in no apparent distress. SKIN: Warm and dry HEENT: Normocephalic. Pupils equal round. Nose without bleeding. Airway patent. NECK: Trachea midline.Supple. CARDIOVASCULAR: Regular rate and rhythm without murmurs, gallops, or rubs. RESPIRATORY: Clear to auscultation. Breath sounds equal bilaterally. No wheezes , rales, or rhonchi. GASTROINTESTINAL: Abdomen soft, non-tender, nondistended. Bowel Sounds normoactive x4. MUSCULOSKELETAL: Extremities without clubbing, cyanosis, or edema. NEUROLOGICAL: Awake and alert. Moves all extremities, rigidity noted. Slow speech. Slow to respond. Tremors right hand. Results Procedures completed during hospitalization: None Labs on day of discharge: Labs from last 24 hours 02/02/18 02/02/18 02/01/18 06:25 06:25 13:06 WBC 6.1 RBC 4.48 L Hgb 13.6 Hct 41.5 MCV 92.6 MCH 30.5 MCHC 32.9 RDW 14.5 Plt Count 229 MPV 7.2 Neut % (Auto) 67.6 Lymph % (Auto) 17.7 [place] % (Auto) 11.5 H Eos % (Auto) 2.6 Baso % (Auto) 0.6 Neut # (Auto) 4.1 Lymph # (Auto) 1.1 [place] # (Auto) 0.7 Eos # (Auto) 0.2 Baso # (Auto) 0.0 WBC Differential . Differential Comment Auto diff final Sodium 141 Potassium 3.7 Chloride 108 H Carbon Dioxide 27.0 Anion Gap 6 BUN 11 Creatinine 0.74 Estimated GFR Greater than 89 Random Glucose 80 Calcium 8.5 Total Bilirubin 0.7 AST 43 H ALT 35 Alkaline Phosphatase 119 H Total Creatine Kinase 380 H CK-MB (CK-2) 2.0 CK-MB (CK-2) % 0.5 Total Protein 7.0 D Albumin 3.1 L Thiamine Pending Vitamin B12 02/01/18 12:46 WBC RBC Hgb Hct MCV MCH MCHC RDW Plt Count MPV Neut % (Auto) Lymph % (Auto) [place] % (Auto) Eos % (Auto) Baso % (Auto) Neut # (Auto) Lymph # (Auto) [place] # (Auto) Eos # (Auto) Baso # (Auto) WBC Differential Differential Comment Sodium Potassium Chloride Carbon Dioxide Anion Gap BUN Creatinine Estimated GFR Random Glucose Calcium Total Bilirubin AST ALT Alkaline Phosphatase Total Creatine Kinase CK-MB (CK-2) CK-MB (CK-2) % Total Protein Albumin Thiamine Vitamin B12 113 L - Impressions ITS Impressions Chest X-Ray 01/31/18 18:55 CONCLUSION: No acute findings. Mild scoliosis. Head CT 01/31/18 19:22 CONCLUSION: 1. No acute intracranial abnormalities. . Discharge Plan - Discharge Disposition Patient Disposition: 67 Disc To Psych Care Facility - Discharge Condition Condition: Stable - Discharge Order Discharge Orders: Discharge Order (Routine); Ordered 02/02/18 Ordered By: Jared Sierra - Discharge Details Discharge Comment: DC to Med-Psych. Please ask nurse to page us if patient gets to med-psych and has new BURAK number. Thanks. - Physicians Team Primary Care Provider: UNKNOWN, Attending Provider: Benja Bah Other Providers: Avni Julian MD ; Narcisa Ospina MD
[2018-02-02] MEDS: Sod Chloride 0.9% Inj 1,000 ML IV.CONT SCH (09:59)
[2018-02-02 12:57] VITALS: RESP 14
[2018-02-02 16:32] VITALS: BP 104/56; PULSE 77; TEMP 98.1; O2SAT 97
== END 2018-02-02 18:01 ==
LOC: NEPHCDU 18:08 → NEDA 18:08 → NEPC 18:08 → NEPHCDU 23:46
PROVIDERS: ADMIT Hospitalist; ATTEND Hospitalist
DX: M41.9 Scoliosis, unspecified; R94.31 Abnormal electrocardiogram [ECG] [EKG]; F03.90 Unspecified dementia, unspecified severity, without behavioral disturbance, psychotic disturbance, mood disturbance, and anxiety; E86.0 Dehydration; T50.905A Adverse effect of unspecified drugs, medicaments and biological substances, initial encounter; E03.9 Hypothyroidism, unspecified; F20.9 Schizophrenia, unspecified; G21.19 Other drug induced secondary parkinsonism; F17.210 Nicotine dependence, cigarettes, uncomplicated; M62.82 Rhabdomyolysis; G92 Toxic encephalopathy

== ENCOUNTER 2018-02-02 13:43 | Inpatient (IN) ==
[2018-02-02] MEDS ORDERED: Aluminum/Magnesium/Simethacone Susp 30 ML UDC PO PRN (19:22)
[2018-02-02] MEDS: Docusate Sodium 100 MG Capsule PO SCH (21:15)
[2018-02-02] MEDS: QUEtiapine 25 MG Tablet PO SCH (21:16)
[2018-02-03] MEDS: Levothyroxine 100 MCG Tablet PO SCH (06:31)
[2018-02-03] MEDS ORDERED: OLANZapine 10 MG Tablet PO SCH (09:00)
[2018-02-03] MEDS: Docusate Sodium 100 MG Capsule PO SCH ×2 (09:40→20:44)
[2018-02-03] MEDS: QUEtiapine 25 MG Tablet PO SCH (12:10)
--- NOTE | 2018-02-03 16:27 | P.HPPSY ---
Provisional Diagnosis Admission Date: February 02, 2018 18:46 [place] I.: Schizophrenia Competence Certification of Person's Competence To Provide Express and Informed Consent I have personally examined Yoav Logan, a person being served at [facility] onFebruary 03, 2018 1621. Express and informed consent means consent voluntarily given in writing, by a competent person, after sufficient explanation and disclosure of the subject matter involved to enable the person to make a knowing and willful decision without any element of force, fraud, deceit, duress, or other form of constraint or coercion. This person is 18 years of age or older, is not now known to be incompetent to consent to treatment with a guardian advocate, and does not have a health care surrogate or proxy currently making medical treatment decisions. I have found this person to be one of the following: [] Competent to provide express and informed consent, as defined above, for voluntary admission to this facility and is competent to provide express and informed consent for treatment. He/she has the consistent capacity to make well reasoned, willful, and knowing decisions concerning his or her medical or mental health treatment. The person fully and consistently understands the purpose of the admission for examination/placement and is fully capable of personally exercising all rights assured under [place]xxx] Incompetent to provide express and informed consent to voluntary admission , and this is incompetent to provide express and informed consent to treatment. The person must be transferred to involuntary status and a petition for a guardian advocate filed with the Circuit Court. [] Refusing to provide express and informed consent to voluntary admission but is competent to provide express and informed consent for treatment. The person must be discharged or transferred to involuntary status. Form shall be completed within 24 hours of a person's arrival at the receiving facility and filed in the clinical record of each person: 1. Admitted on a voluntary basis 2. Permitted to provide express and informed consent to his/her own treatment 3. Allowed to transfer from involuntary to voluntary status 4. Prior to permitting a person to consent to his or her own treatment after having been previously found incompetent to consent to treatment. History of Present Illness Capacity: Lacks capacity History of Present Illness: Patient is a 62-year-old man, domiciled that [facility] assisted living facility, with a past psychiatric history of schizophrenia and dementia, with previous psychiatric admissions, with a past medical history significant for hypothyroidism who was initially brought to the ED for altered mental status, tremors and hallucinations which patient was initially admitted to the medical' s service which psychiatry was consulted for evaluation and was subsequently admitted to the inpatient psychiatry unit for further evaluation and management psychosis. Initial consult evaluation noted below: The patient is a 62 -year-old man, domiciled in [facility], with hx of schizophrenia since his 20s, dementia, he is on olanzapine 20 mg at bedtime, Remeron 15 mg, who presents to the ER with altered mental status and increased tremor. He also states he has been having increased hallucinations. He is a poor historian and cannot tell me when he began having change in mental status or how long he has been having hallucinations. He states his tremors come and go and can be bothersome at times. The patient reports that he has been seeing his sister tried to treat him with a 45 gun. The patient is oppositional, irritable, just answer selectively to some of my questions. He does denies suicidal enemas ideation, he denies visual and auditory hallucinations at this moment. The patient is oriented to person, but confused and partially oriented in time and place. The patient was given olanzapine 10 mg IM previously to this encounter due to agitation. He was already seen by neurology given his tremors: CT head was unremarkable. CXR unremarkable ammonia wnl. Urine is pending. Neurology recommendations were : tremors are mild, intermittent and no cogwheeling rigiditywould avoid adding dopaminergic medications as these can increase confusion and hallucinations. would hold benztropine or try to lower dose if possible as this can also contribute to hallucinations agree with psychiatry consult. Discussion with nursing staff reported the patient noted with some disorganized behavior earlier this morning, endorsing auditory hallucinations as well as visual hallucinations of his sister and noted to be unsteady with his gait which patient was transferred to a room closer to the nurse's station and put on one-to-one observation for safety. Patient was found lying hospital bed and initially sedated as he had received olanzapine 10 mg IM earlier this morning due to disorganization and agitation in later interview when he was able to participate in interview. Patient noted to be very guarded, superficially cooperative but also poor historian as current symptomatology interferes with patient's interactions at this time. Patient states that there are people trying to control his mind pertaining to sex and food for the past couple of months but did not want to further elaborate. He recalls his sister having brought him to the hospital but was unable to recall events prior to his admission. He states he is feeling "depressed" and that he wants to . Patient and denying any auditory hallucinations but stating having visual hallucination of "crosses". Patient unable to provide any further history to the current psychosis he was able to report that he had [facility] assisted living facility for the past month and that his sister is Jenny Vicente ). Quality Process Engineer was able to contact patient's sister to obtain collateral information as well as to obtain consent for treatment as patient's sister will be healthcare surrogate and guardian advocate during this admission. She states that patient has been struggling with his medications since July this year and had been following up with Yuniel Naqvi and has been on Haldol for very long time. Patient states at the age of 62 patient was switched over to Zyprexa and Haldol discontinued after patient was [place] acted in December and was doing better with that regimen. She mentions that her Cogentin was recently increased to 2 mg p.o. twice daily and patient was discharged to an assisted living facility in January 26 2018 which subsequently led to his current admission. - Inpatient Certification I certify that the inpatient services were ordered in accordance with Medicare regulations governing the order. This includes certification that hospital inpatient services are reasonable and necessary and in the case of services not specified as inpatient-only under 42 CFR 419.22(n), that they are appropriately provided as inpatient services in accordance to with the 2-midnight benchmark under 43 CFR 412.3(e) I certify that inpatient psychiatric hospital services are medically necessary. Evaluation and treatment and/or diagnostic testing are expected to improve the patient's condition. The patient needs on a daily basis, active treatment furnished directly by or requiring the supervision of inpatient psychiatric facility personnel. Estimated Total Length of Stay (Days): 7 Plans for Post Hospital Care: Not yet determined Review of Systems All other systems reviewed negative except as stated [facility] - History History Provided By: Patient, Family Member, Medical Record - Medical History Medical History: Medical History (Last Updated 01/31/18 @ 18:34 by Flory Ding) Dementia Hypothyroidism Parkinson disease Schizophrenia Smoker - Surgical History Surgical History: Surgical History (Last Updated 01/31/18 @ 18:29 by Flory Ding) No history of previous surgery - Family History Family History: Family History (Last Updated 02/01/18 @ 00:45 by German Adams MD) Other Family history non-contributory - Tobacco History Second Hand Smoke Exposure: No Smoking Status: Never smoker Tobacco Type: Cigarettes - Alcohol History How Often Do You Have a Drink Containing Alcohol: Never - Substance Use History Substance History: No History of Abuse - Travel History Recent Travel in the [place] Within the Last 8 Weeks: No Recent Travel Out of the Country Within the Last 8 Weeks: No - Immunization History Tetanus Immunization: Unable to Assess Hx Influenza Vaccine This Season: Unable to Assess Quality Measures - Psychiatric History Psychological trauma history: Unable to obtain as patient is a poor historian Violence risk to others in the last 6 months: Low Violence risk to self in the last 6 months: Elevated due to recent suicidal ideation - Substance Abuse History Drug or alcohol use in the past 12 months: None - Patient Strengths Patient's strengths (minimum of 2): Verbal and communicative Medications and Allergies Active Medications: Active Medications Acetaminophen (Tylenol) 650 mg PO Q4H PRN PRN Reason: Pain 1-5 or Temp >101F Al Hydrox/Mg Hydrox/Simethicone (Mag-Al Plus Susp Liq) 30 ml PO Q6H PRN PRN Reason: DYSPEPSIA Docusate Sodium (Colace) 100 mg PO BID [facility] Last Admin: 02/03/18 09:40 Dose: Not Given Levothyroxine Sodium (Synthroid) 100 mcg PO DAILY@0600 [facility] Last Admin: 02/03/18 06:31 Dose: 100 mcg Lorazepam (Ativan) 1 mg PO Q6H PRN PRN Reason: MODERATE TO SEVERE ANXIETY Olanzapine (Zyprexa Zydis Odt) 10 mg PO BID [facility] Quetiapine Fumarate (Seroquel) 25 mg PO BID [facility] Last Admin: 02/03/18 12:10 Dose: Not Given Allergies Allergy/AdvReac Type Severity Reaction Status Date / Time No Known Allergies Allergy Verified 01/31/18 18:22 Home Medications Medication Instructions Recorded Confirmed Type docusate sodium [Colace] 100 mg PO BID 01/31/18 01/31/18 History levothyroxine [Synthroid] 100 mcg PO DAILY 01/31/18 01/31/18 History olanzapine [Zyprexa] 20 mg PO DAILY 01/31/18 01/31/18 History Exam Vital signs: Vital Signs 02/02/18 19:00 02/03/18 05:45 Temperature 98 F 98.6 F Pulse Rate 68 75 Respiratory Rate 16 16 Blood Pressure 121/70 146/82 H Pulse Oximetry 95 96 Intake & Output 02/02/18 02/03/18 02/03/18 18:59 06:59 18:59 Intake Total 120 / 120 Balance 120 / 120 Weight 70.3 kg Intake: Oral 120 / 120 Other: Weight On Admission 70.3 kg Narrative: Patient not noted to be in acute distress, no gross motor of maladies, no significant tremor noted although mild. No psychomotor agitation or retardation. - Constitutional no acute distress, cooperative (Superficially) Mental Status Examination Appearance: Appropriate Consciousness: Alert Orientation: Person, Place, Date/Time (year only) Speech: Hesitant Language: Other (Limited) Fund of Knowledge: Inadequate Attention and Concentration: Adequate Memory: Impaired Mood: Sad Affect: Blunt Thought Process & Associations: Disorganized, Other ([place]) Thought Content: Bizarre thinking, Thought blocking, Delusional Hallucination Type: Auditory, Visual Delusion Type: Paranoid Suicidal Ideation: Yes Suicidal Plan: No Suicidal Intention: No Homicidal Ideation: No Homicidal Plan: No Homicidal Intention: No Insight: Poor Judgment: Poor Assessment and Plan - Assessment (1) Schizophrenia Code(s): F20.9 - Schizophrenia, unspecified Status: Acute - Plan Plan: Estimated LOS: [] days Patient is a 8-year-old man who carries a diagnosis schizophrenia, previous psychiatric admissions, with past medical history significant for hypothyroidism, dementia, it was admitted to the inpatient psychiatry unit after medical stabilization who currently continues with active psychotic symptoms, perceptual disturbances, auditory and visual, bizarre delusions along with suicide ideations which patient continues require inpatient stabilization. Petition for involuntary hospital she started, second opinion requested. Patient's sister will serve as health care surrogate and guardian advocate for this admission and patient at this time does not have capacity to consent for treatment. Patient will resume olanzapine 10 mg p.o. twice daily, for psychosis. If patient has no our partial response to olanzapine we will consider cross titrating over to alternative agent such as quetiapine. Continue to monitor mood and behavior. Discharge planning a progress. Justification for Continued Inpatient Stay: At risk of further decompensation a lower level of care.
[2018-02-03] MEDS: OLANZapine 10 MG ODT Tablet PO SCH (20:44)
[2018-02-04] MEDS: Levothyroxine 100 MCG Tablet PO SCH (05:11)
[2018-02-04] MEDS: Docusate Sodium 100 MG Capsule PO SCH ×2 (08:49→20:42)
[2018-02-04] MEDS: OLANZapine 10 MG ODT Tablet PO SCH ×2 (08:49→20:41)
--- NOTE | 2018-02-04 13:02 | P.PNPSY ---
Subjective Remarks: Reviewed electronic medical records and discussed case with staff. Follow-up was conducted in patient's room. Patient awake in bed his lunch tray had just arrived. He states that he has been sleeping well that he is hungry at this time. He does report auditory hallucinations when asked what the voices say he replied, "in the [place]". His nurse reported that he initially attempted to refuse his medication has been presenting as extremely paranoid. Ultimately , she was able to get him to take the medicine. Mental Status Examination Appearance: Appropriate Consciousness: Alert Orientation: Person, Place, Date/Time (year only) Speech: Hesitant Language: Other (Limited) Fund of Knowledge: Inadequate Attention and Concentration: Adequate Memory: Impaired Mood: Sad Affect: Blunt Thought Process & Associations: Disorganized, Other ([place]) Thought Content: Bizarre thinking, Thought blocking, Delusional Hallucination Type: Auditory, Visual Delusion Type: Paranoid Suicidal Ideation: Yes Suicidal Plan: No Suicidal Intention: No Homicidal Ideation: No Homicidal Plan: No Homicidal Intention: No Insight: Poor Judgment: Poor Assessment and Plan - Assessment (1) Schizophrenia Code(s): F20.9 - Schizophrenia, unspecified Status: Acute - Plan Plan: Patient will be reevaluated on Tuesday by the attending psychiatrist. Continue with current treatment plan. Justification for Continued Inpatient Stay: Moving this patient to a less restrictive environment would likely result in decompensation.
[2018-02-04] MEDS: LORazepam 1 MG Tablet PO PRN (17:27)
[2018-02-04] MEDS: Acetaminophen 325 MG Tablet PO PRN (17:28)
[2018-02-05] MEDS: Acetaminophen 325 MG Tablet PO PRN (09:33)
[2018-02-05] MEDS: Docusate Sodium 100 MG Capsule PO SCH ×2 (09:35→22:14)
[2018-02-05] MEDS: OLANZapine 10 MG ODT Tablet PO SCH ×2 (09:35→22:14)
[2018-02-05] MEDS: Levothyroxine 100 MCG Tablet PO SCH (09:37)
[2018-02-05] MEDS: LORazepam 1 MG Tablet PO PRN (15:22)
--- NOTE | 2018-02-05 19:17 | P.PNPSY ---
Subjective Remarks: Reviewed electronic medical records and discussed case with staff. Follow-up was conducted in the patient's room. Patient found lying in bed awake and alert. His nurse reports that yesterday after visitation with his sister she found him extremely diaphoretic and vitals check showed an increased blood pressure and heart rate. Additionally, he exhibited extreme psychomotor agitation. She given some Ativan and eventually he did settle down. She noted a similar response today after his sister's visit however, she was able to provide him with some Ativan during the visit and it was not as severe. The sitter in the room noted that the patient's sister was excessively concerned with the other patients around him asking inappropriate questions about other patients conditions and care. Upon my examination tonight I found him to be slightly agitated, again this is after visiting his sister. I inquired as to whether she hurts him and instead of denying it he responded "I do not want to talk about people". I explained to him that if he is in any kind of danger physically or verbally this would be the place to get help if he does not feel comfortable speaking with me about it I would hope he would feel comfortable talking to Dr. Flores tomorrow. His agitation did seem to diminish throughout the conversation. Mental Status Examination Appearance: Appropriate Consciousness: Alert Orientation: Person, Place, Date/Time (year only) Speech: Hesitant Language: Other (Limited) Fund of Knowledge: Inadequate Attention and Concentration: Adequate Memory: Impaired Mood: Sad Affect: Blunt Thought Process & Associations: Disorganized, Other ([place]) Thought Content: Bizarre thinking, Thought blocking, Delusional Hallucination Type: Auditory, Visual Delusion Type: Paranoid Suicidal Ideation: Yes Suicidal Plan: No Suicidal Intention: No Homicidal Ideation: No Homicidal Plan: No Homicidal Intention: No Insight: Poor Judgment: Poor Assessment and Plan - Assessment (1) Schizophrenia Code(s): F20.9 - Schizophrenia, unspecified Status: Acute - Plan Plan: Patient will be reevaluated tomorrow by the attending psychiatrist. Continue with current treatment plan. I feel we need to investigate how safe the patient feels his current living situation. Justification for Continued Inpatient Stay: Moving this patient to a less restrictive environment would likely result in decompensation.
[2018-02-06] MEDS: Levothyroxine 100 MCG Tablet PO SCH (06:16)
[2018-02-06] MEDS: Docusate Sodium 100 MG Capsule PO SCH ×2 (09:37→20:43)
[2018-02-06] MEDS: OLANZapine 10 MG ODT Tablet PO SCH ×2 (09:38→20:43)
[2018-02-06 11:04] LABS: Anion Gap 6 meq/L (5-15); Blood Urea Nitrogen 12 mg/dL (7-18); Calcium 8.7 mg/dL (8.5-10.1); Carbon Dioxide 28.9 meq/L (21.0-32.0); Chloride 105 meq/L (98-107); Cholesterol 138 mg/dL (120-200); Glomerular Filtration Rate Greater Than 89 mL/min (>89); Glucose,Random 95 mg/dL (74-106); Potassium 3.9 meq/L (3.5-5.1); Sodium 140 meq/L (136-145); Triglycerides 69 mg/dL (42-150)
[2018-02-06 11:08] LABS: Chol/HDL Ratio 2.84 Ratio; HDL Cholesterol 48.5 mg/dL (40.0-60.0); LDL Cholesterol,Calculated 76 mg/dL (0-99)
--- NOTE | 2018-02-06 12:00 | P.CONPSY ---
Provisional Diagnosis Admission Date: February 02, 2018 18:46 [place].: Schizophrenia History of Present Illness Service: Psychiatry Consult date: 02/06/18 Requesting Physician: Jere Flores Reason for Consult: Second opinion petition supporting Chavez act Primary Care Provider: UNKNOWN History of Present Illness: Patient is a 8-year-old white male comes to the emergency department admitted to Dr. Jere Flores service under the Chavez act. Dr. Flores dictation reviewed and agreed with. Dr. Flores assigned first opinion petition supporting Chavez act. Patient seen by me in his room with nurse Joseph. He is a tall very slender white male appears his stated age he is quite paranoid with marked thought blocking and irritability refusing to discuss the precipitants leading to this hospitalization. At this time if the patient does meet Chavez criteria for involuntary psychiatric hospitalization thus I will cosign second opinion petition supporting Chavez act Review of Systems All other systems reviewed negative except as stated in HPI [facility] - History History Provided By: Patient, Family Member, Medical Record - Medical History Medical History: Medical History (Last Reviewed 02/06/18 @ 11:16 by Geo Kellogg) Dementia Hypothyroidism Parkinson disease Schizophrenia Smoker - Surgical History Surgical History: Surgical History (Last Reviewed 02/06/18 @ 11:16 by Geo Kellogg) No history of previous surgery - Family History Family History: Family History (Last Updated 02/01/18 @ 00:45 by German Adams MD) Other Family history non-contributory - Tobacco History Second Hand Smoke Exposure: No Smoking Status: Never smoker Tobacco Type: Cigarettes - Alcohol History How Often Do You Have a Drink Containing Alcohol: Never - Substance Use History Substance History: No History of Abuse - Travel History Recent Travel in the [place] Within the Last 8 Weeks: No Recent Travel Out of the Country Within the Last 8 Weeks: No - Immunization History Tetanus Immunization: Unable to Assess Hx Influenza Vaccine This Season: Unable to Assess Medications and Allergies Active Medications: Active Medications Acetaminophen (Tylenol) 650 mg PO Q4H PRN PRN Reason: Pain 1-5 or Temp >101F Last Admin: 02/05/18 09:33 Dose: 650 mg Al Hydrox/Mg Hydrox/Simethicone (Mag-Al Plus Susp Liq) 30 ml PO Q6H PRN PRN Reason: DYSPEPSIA Diphenhydramine HCl (Benadryl) 50 mg PO HS PRN PRN Reason: INSOMNIA Last Admin: 02/05/18 22:14 Dose: 50 mg Docusate Sodium (Colace) 100 mg PO BID [facility] Last Admin: 02/06/18 09:37 Dose: Not Given Levothyroxine Sodium (Synthroid) 100 mcg PO DAILY@0600 [facility] Last Admin: 02/06/18 06:16 Dose: 100 mcg Lorazepam (Ativan) 1 mg PO Q6H PRN PRN Reason: MODERATE TO SEVERE ANXIETY Last Admin: 02/05/18 15:22 Dose: 1 mg Olanzapine (Zyprexa Zydis Odt) 10 mg PO BID [facility] Last Admin: 02/06/18 09:38 Dose: 10 mg Allergies Allergy/AdvReac Type Severity Reaction Status Date / Time No Known Allergies Allergy Verified 01/31/18 18:22 Home Medications Medication Instructions Recorded Confirmed Type docusate sodium [Colace] 100 mg PO BID 01/31/18 01/31/18 History levothyroxine [Synthroid] 100 mcg PO DAILY 01/31/18 01/31/18 History olanzapine [Zyprexa] 20 mg PO DAILY 01/31/18 01/31/18 History Exam Vital signs: Vital Signs 02/05/18 18:00 Temperature 97.4 F L Pulse Rate 83 Respiratory Rate 18 Blood Pressure 120/67 Pulse Oximetry 96 Intake & Output 02/05/18 02/06/18 02/06/18 18:59 06:59 18:59 Intake Total 2880 / 2880 340 / 340 Balance 2880 / 2880 340 / 340 Weight 69.9 kg Intake: Oral 2880 / 2880 240 / 240 Oral Supplement 100 / 100 Other: # Voids 2 2 Narrative: Patient seen laying in his bed he is in no acute distress, he is in no respiratory distress, no complaints of abdominal pain or chest pain. Unable to assess ambulation range of motion since patient is lying quite still in bed Mental Status Examination Appearance: Appropriate Consciousness: Alert Orientation: Person, Place, Date/Time (year only) Speech: Hesitant Language: Other (Limited) Fund of Knowledge: Inadequate Attention and Concentration: Adequate Memory: Impaired Mood: Sad Affect: Blunt Thought Process & Associations: Disorganized, Other ([place]) Thought Content: Bizarre thinking, Thought blocking, Delusional Hallucination Type: Auditory, Visual Delusion Type: Paranoid Suicidal Ideation: Yes Suicidal Plan: No Suicidal Intention: No Homicidal Ideation: No Homicidal Plan: No Homicidal Intention: No Insight: Poor Judgment: Poor Assessment and Plan - Assessment (1) Schizophrenia Code(s): F20.9 - Schizophrenia, unspecified Status: Acute - Plan Plan: I agree with Dr. Flores patient meets criteria for involuntary psychiatric hospitalization thus I will cosign second opinion petition supporting Scott bagley Justification for Continued Inpatient Stay: At this time patient would decompensate a place to the lower level of care
--- NOTE | 2018-02-06 15:54 | P.PNPSY ---
Subjective Remarks: Patient seen for follow, chart reviewed. Discussion nursing staff reported the patient had refused breakfast this morning but did eat lunch. Patient was found sitting in hospital bed noted be superficially cooperative. Patient states he had difficulty with sleep last evening, reports his mood has been "bad " and when asked to elaborate what has been affecting his mood recently he states "hard to explain". Patient continues to have some thought blocking, and continues endorse auditory hallucinations of one voice which is not command in nature but states "just talking". Patient denies any visual hallucinations, denying any suicidal homicidal ideations at this time. Patient reported having been visited by the sister recently and when asked about the visit he states it was "not too good". Patient to participate in physical therapy today. Spoke with sister: believes patient is "improving a little bit every day", noted to be "less squirrly", less staring. Review of Systems All other systems reviewed negative except as stated in HPI Mental Status Examination Appearance: Appropriate Consciousness: Alert Orientation: Person, Place, Date/Time (year only) Speech: Hesitant Language: Other (Limited) Fund of Knowledge: Inadequate Attention and Concentration: Adequate Memory: Impaired Mood: Sad Affect: Blunt Thought Process & Associations: Other ([place]) Thought Content: Bizarre thinking, Thought blocking, Delusional Hallucination Type: Auditory Delusion Type: Paranoid Suicidal Ideation: Yes (Denies today) Suicidal Plan: No Suicidal Intention: No Homicidal Ideation: No Homicidal Plan: No Homicidal Intention: No Insight: Poor Judgment: Poor Assessment and Plan - Assessment (1) Schizophrenia Code(s): F20.9 - Schizophrenia, unspecified Status: Acute - Plan Plan: Patient this time appears to be more engaging, less thought blocking although continues to be somewhat present. Patient continues to endorse auditory hallucinations but not command in nature a continues report feeling depressed but now denying any suicide ideations. We will start mirtazapine 15 mg p.o. at bedtime for depressed mood as well as to assist with sleep disturbance. Continue rest of medications. We will continue to monitor mood and behavior. Discharge planning in progress. Justification for Continued Inpatient Stay: At risk for further decompensation if at lower level of care
[2018-02-06 16:33] LABS: Hemoglobin A1c 5.8 % (4.3-6.0)
[2018-02-06] MEDS: Mirtazapine 15 MG Tablet PO SCH (20:43)
[2018-02-07] MEDS: Levothyroxine 100 MCG Tablet PO SCH (06:17)
--- NOTE | 2018-02-07 08:50 | P.PNPSY ---
Subjective Remarks: Patient seen for follow, chart reviewed. Discussion nursing staff reported the patient yesterday had one meal and having a compliant. Patient was found sitting in hospital bed eating breakfast this morning noted B, cooperative more engaging today with interview. Patient states he slept well last evening and states that his mood has been "good", recalls having work with physical therapy has 3 stated he was able to walk around the. Patient denying any auditory hallucinations today stated last time he had was last night and denies any visual hallucinations today. Patient denies any suicide ideations. Patient recalls having visited by his sister yesterday but did not elaborate. Review of Systems All other systems reviewed negative except as stated in HPI Mental Status Examination Appearance: Appropriate Consciousness: Alert Orientation: Person, Place, Date/Time (year only) Speech: Hesitant (lessening) Language: Other (Limited) Fund of Knowledge: Inadequate Attention and Concentration: Adequate Memory: Impaired Mood: Good Affect: Blunt Thought Process & Associations: Other ([place]) Thought Content: Thought blocking (lessening), Delusional Hallucination Type: None Delusion Type: Paranoid (lessening) Suicidal Ideation: No Suicidal Plan: No Suicidal Intention: No Homicidal Ideation: No Homicidal Plan: No Homicidal Intention: No Insight: Poor Judgment: Poor Assessment and Plan - Assessment (1) Schizophrenia Code(s): F20.9 - Schizophrenia, unspecified Status: Acute - Plan Plan: Patient this time noted to have improvement in affect as well as more engaging interview less thought blocking, denying any auditory hallucinations today but did proceeded less evening, denying any suicide ideations as well today we will continue current treatment. We will continue to monitor mood and behavior. Patient to continue with physical therapy while on the unit. We will order repeat CMP and CK level. Discharge planning a progress. Justification for Continued Inpatient Stay: At risk for further decompensation if at lower level of care
[2018-02-07] MEDS: OLANZapine 10 MG ODT Tablet PO SCH ×2 (09:26→20:42)
[2018-02-07] MEDS: Docusate Sodium 100 MG Capsule PO SCH ×2 (09:26→20:42)
[2018-02-07] MEDS: Acetaminophen 325 MG Tablet PO PRN (10:58)
[2018-02-07] MEDS: LORazepam 1 MG Tablet PO PRN ×2 (10:59→20:42)
--- NOTE | 2018-02-07 11:44 | XR ---
EXAM DATE: 02/07/2018 11:26 AM EDT AGE/SEX: 62 years / Male INDICATIONS: Fall, right hip pain. CLINICAL DATA: This is the patient's subsequent encounter. Patient reports that signs and symptoms h ave been present for 1 day and indicates a pain score of 1/10. MEDICAL/SURGICAL HISTORY: Dementia. Parkinson's disease. None. COMPARISON: No prior exams available for comparison. FINDINGS: Bony structures are intact and in normal alignment. Joints are intact without dislocation . Mild ost eoarthritis. Osseous density is normal. Soft tissues are unremarkable. No radiopaque foreign panda s seen. CONCLUSION: Mild osteoarthritis. No acute abnormality. Electronically signed by: Rocky Costa MD 02/07/2018 11:42 AM EDT
--- NOTE | 2018-02-07 11:44 | XR ---
EXAM DATE: 02/07/2018 11:27 AM EDT AGE/SEX: 62 years / Male INDICATIONS: Fall, left hip pain. CLINICAL DATA: This is the patient's subsequent encounter. Patient reports that signs and symptoms h ave been present for 1 day and indicates a pain score of 2/10. MEDICAL/SURGICAL HISTORY: Dementia. Parkinson's disease. None. COMPARISON: No prior exams available for comparison. FINDINGS: Bony structures are intact and in normal alignment. Mild osteoarthritis of the left hip. Osseous dens ity is normal. Soft tissues are unremarkable. No radiopaque foreign bodies seen. CONCLUSION: Mild osteoarthritis at the left hip. No acute bony abnormality. Electronically signed by: Cruzito Jones MD 02/07/2018 11:43 AM EDT
--- NOTE | 2018-02-07 12:16 | P.CONIM ---
History of Present Illness Service: [facility] Consult date: 02/07/18 Requesting Physician: Jere Flores Reason for Consult: MEDICAL MANAGEMENT Primary Care Provider: UNKNOWN Chief Complaint: HELP WITH MEDICAL MANAGEMENT AND BLOOD PRESSURE ISSUES History of Present Illness: Patient is a 62-year-old gentleman. Who we were consulted regarding help with medical management. Patient has known history of dementia, hypothyroidism, Parkinson's disease, schizophrenia, tobacco abuse and probable hypertension. Patient was recently under our service February 01 - February 02 and then discharged and transferred to inpatient psychiatry. Patient was noted to fall today had bilateral hip x-rays that are stable. We have been asked to help regarding medical management. And we will treat his hypertension with Norvasc 5 mg p.o. daily and Catapres as needed. Review of Systems All other systems reviewed negative except as stated in HPI [facility] - History History Provided By: Patient, Family Member, Medical Record - Medical History Medical History: Medical History (Last Reviewed 02/06/18 @ 11:16 by Geo Klelogg) Dementia Hypothyroidism Parkinson disease Schizophrenia Smoker - Surgical History Surgical History: Surgical History (Last Reviewed 02/06/18 @ 11:16 by Geo Kellogg) No history of previous surgery - Family History Family History: Family History (Last Updated 02/07/18 @ 12:13 by Kvng Silva DO) Other Family history non-contributory Family history of hypertension - Tobacco History Second Hand Smoke Exposure: No Smoking Status: Never smoker Tobacco Type: Cigarettes - Alcohol History How Often Do You Have a Drink Containing Alcohol: Never - Substance Use History Substance History: No History of Abuse - Travel History History of Recent Travel: No Recent Travel in the [place] Within the Last 8 Weeks: No Recent Travel Out of the Country Within the Last 8 Weeks: No - Immunization History Tetanus Immunization: Unable to Assess Hx Influenza Vaccine This Season: Unable to Assess Medications and Allergies Active Medications: Active Medications Acetaminophen (Tylenol) 650 mg PO Q4H PRN PRN Reason: Pain 1-5 or Temp >101F Last Admin: 02/07/18 10:58 Dose: 650 mg Al Hydrox/Mg Hydrox/Simethicone (Mag-Al Plus Susp Liq) 30 ml PO Q6H PRN PRN Reason: DYSPEPSIA Amlodipine Besylate (Norvasc) 5 mg PO DAILY [facility] Diphenhydramine HCl (Benadryl) 50 mg PO HS PRN PRN Reason: INSOMNIA Last Admin: 02/06/18 20:43 Dose: 50 mg Docusate Sodium (Colace) 100 mg PO BID [facility] Last Admin: 02/07/18 09:26 Dose: Not Given Levothyroxine Sodium (Synthroid) 100 mcg PO DAILY@0600 [facility] Last Admin: 02/06/18 06:16 Dose: 100 mcg Lorazepam (Ativan) 1 mg PO Q6H PRN PRN Reason: MODERATE TO SEVERE ANXIETY Last Admin: 02/07/18 10:59 Dose: 1 mg Mirtazapine (Remeron) 15 mg PO HS [facility] Last Admin: 02/06/18 20:43 Dose: 15 mg Olanzapine (Zyprexa Zydis Odt) 10 mg PO BID [facility] Last Admin: 02/07/18 09:26 Dose: 10 mg Allergies Allergy/AdvReac Type Severity Reaction Status Date / Time No Known Allergies Allergy Verified 01/31/18 18:22 Home Medications Medication Instructions Recorded Confirmed Type docusate sodium [Colace] 100 mg PO BID 01/31/18 01/31/18 History levothyroxine [Synthroid] 100 mcg PO DAILY 01/31/18 01/31/18 History olanzapine [Zyprexa] 20 mg PO DAILY 01/31/18 01/31/18 History Exam Vital signs: Vital Signs 02/06/18 18:00 02/07/18 06:00 02/07/18 10:12 Temperature 97.7 F 98.7 F 97.2 F L Pulse Rate 89 94 H 109 H Respiratory Rate 20 16 22 Blood Pressure 128/74 147/90 H 165/98 H Pulse Oximetry 97 95 94 L 02/07/18 10:30 02/07/18 10:45 Temperature 99.6 F Pulse Rate 113 H 120 H Respiratory Rate 20 Blood Pressure 183/88 H 194/91 H Pulse Oximetry 94 L 92 L Intake & Output 02/06/18 02/07/18 02/07/18 18:59 06:59 18:59 Intake Total 700 / 700 0 / 0 240 / 240 Output Total Balance 699 / 699 0 / 0 240 / 240 Intake: Oral 600 / 600 0 / 0 240 / 240 Oral Supplement 100 / 100 0 / 0 Output: Urine Other: # Voids 2 2 # Bowel Movements 1 Narrative: GENERAL: Awake and alert talkative and cooperative SKIN: Warm and dry. HEAD: Atraumatic. Normocephalic. EYES: Pupils equal and round. No scleral icterus. No injection or drainage. EOMI ENT: No nasal bleeding or discharge. Mucous membranes pink and moist. Tongue is midline NECK: Trachea midline. No JVD. Supple CARDIOVASCULAR: Regular rate and rhythm. S1-S2 no S3 or S4 RESPIRATORY: No accessory muscle use. Clear to auscultation. Breath sounds equal bilaterally. GASTROINTESTINAL: Abdomen soft, non-tender, nondistended. Hepatic and splenic margins not palpable. MUSCULOSKELETAL: Extremities without clubbing, cyanosis, or edema. No obvious deformities. NEUROLOGICAL: Awake and alert. No obvious cranial nerve deficits. Motor grossly within normal limits. Five out of 5 muscle strength in the arms and legs. Normal speech. PSYCHIATRIC: INAppropriate mood and affect; insight and judgment ABnormal. Results - Labs CBC & Chem 7: 02/06/18 10:02 Labs: Laboratory Results - last 24 hr 02/06/18 10:02 Hemoglobin A1c 5.8 - Imaging Impressions Hip X-Ray 02/07/18 00:00 CONCLUSION: Mild osteoarthritis at the left hip. No acute bony abnormality. Hip X-Ray 02/07/18 00:00 CONCLUSION: Mild osteoarthritis. No acute abnormality. Assessment and Plan - Plan Schizophrenia and dementia will defer to psychiatry regarding this. Hypertension, not previously documented prior to this hospitalization. We will start on Norvasc 5 mg 1 p.o. daily and as needed Catapres for elevated blood pressure. Hypothyroidism we will continue on Synthroid 100 MCG's daily-we will check a TSH and free T4 Parkinson's disease not currently on any medications for this at this time -We will continue physical therapy and Occupational Therapy Tobacco abuse recommend cessation of tobacco abuse We will get labs Patient is status post fall and bilateral hip x-rays are stable with no acute fractures. Does show some osteoarthritis Code Status: Full code Discussed Condition With: RN and patient Discharge Planning: Pending psychiatric clearance
[2018-02-07] MEDS: amLODIPine 5 MG Tablet PO SCH (12:22)
[2018-02-07 14:37] LABS: Albumin 3.2 g/dL (3.4-5.0); Anion Gap 10 meq/L (5-15); Aspartate Aminotransferase 36 U/L (15-37); Blood Urea Nitrogen 16 mg/dL (7-18); Calcium 8.7 mg/dL (8.5-10.1); Carbon Dioxide 25.9 meq/L (21.0-32.0); Chloride 104 meq/L (98-107); Glomerular Filtration Rate 83 mL/min (>89); Glucose,Random 129 mg/dL (74-106); Potassium 3.8 meq/L (3.5-5.1); Sodium 140 meq/L (136-145)
[2018-02-07 14:38] LABS: Alanine Aminotransferase 34 U/L (12-78)
[2018-02-07 14:40] LABS: Alkaline Phosphatase 128 U/L (45-117); Creatine Kinase 206 U/L (39-308); Total Protein 7.7 g/dL (6.4-8.2)
[2018-02-07] MEDS: Mirtazapine 15 MG Tablet PO SCH (20:42)
[2018-02-08] MEDS: Levothyroxine 100 MCG Tablet PO SCH (06:25)
[2018-02-08] MEDS: OLANZapine 10 MG ODT Tablet PO SCH ×2 (08:20→20:11)
[2018-02-08] MEDS: Docusate Sodium 100 MG Capsule PO SCH ×2 (08:20→20:11)
[2018-02-08] MEDS: amLODIPine 5 MG Tablet PO SCH (08:20)
--- NOTE | 2018-02-08 08:31 | P.PN ---
Subjective Interval history: Follow-up for HTN. Patient is seen and examined resting in bed in no acute distress. He denies any headache, dizziness, fevers, chills, N/V/D, cough or SOB. Nurse reports no acute events overnight or this morning. Physical Exam Vital signs: Vital Signs 02/07/18 10:12 02/07/18 10:30 02/07/18 10:45 Temperature 36.2 C L 37.6 C Pulse Rate 109 H 113 H 120 H Respiratory Rate 22 20 Blood Pressure 165/98 H 183/88 H 194/91 H Pulse Oximetry 94 L 94 L 92 L 02/07/18 15:18 02/07/18 17:31 02/07/18 18:00 Temperature 36.2 C L 36.4 C 36.6 C Pulse Rate 86 89 89 Respiratory Rate 16 18 18 Blood Pressure 111/61 133/72 133/72 Pulse Oximetry 94 L 93 L 93 L 02/07/18 22:10 02/08/18 06:00 Temperature 36.6 C Pulse Rate 82 90 Respiratory Rate 16 18 Blood Pressure 120/72 119/95 H Pulse Oximetry 96 93 L Intake & Output 02/07/18 02/08/18 02/08/18 18:59 06:59 18:59 Intake Total 2280 / 2280 340 / 340 Balance 2280 / 2280 340 / 340 Intake: Oral 2280 / 2280 240 / 240 Oral Supplement 100 / 100 Other: # Voids 1 1 Narrative: GENERAL: Developed elderly male resting in bed in no acute distress. SKIN: Warm and dry. HEAD: Atraumatic. Normocephalic. EYES: Pupils equal and round. No scleral icterus. No injection or drainage. ENT: No nasal bleeding or discharge. Mucous membranes pink, dry. NECK: Trachea midline. No JVD. CARDIOVASCULAR: Regular rate and rhythm. RESPIRATORY: No accessory muscle use. Clear to auscultation. Breath sounds equal bilaterally. GASTROINTESTINAL: Abdomen soft, non-tender, nondistended.+ Bowel sounds MUSCULOSKELETAL: Extremities without clubbing, cyanosis, or edema. No obvious deformities. NEUROLOGICAL: Awake and alert. No obvious cranial nerve deficits. Motor grossly within normal limits. Moving all extremities spontaneously. Normal speech. Results - Labs CBC & Chem 7: 02/07/18 13:08 Laboratory Results - last 24 hr 08/07/18 13:08 Sodium 140 Potassium 3.8 Chloride 104 Carbon Dioxide 25.9 Anion Gap 10 BUN 16 Creatinine 0.93 Estimated GFR 83 L Random Glucose 129 H Calcium 8.7 Total Bilirubin 0.4 AST 36 ALT 34 Alkaline Phosphatase 128 H Total Creatine Kinase 206 Total Protein 7.7 D Albumin 3.2 L - Imaging Impressions Hip X-Ray 02/07/18 00:00 CONCLUSION: Mild osteoarthritis at the left hip. No acute bony abnormality. Hip X-Ray 02/07/18 00:00 CONCLUSION: Mild osteoarthritis. No acute abnormality. Assessment and Plan - Plan 62-year-old male with past medical history significant for schizophrenia, HTN, hypothyroidism, Parkinson's, and tobacco abuse who presented to the emergency department on 01/31 from assisted living facility due to altered mental status and reported shakiness. Patient was admitted for further evaluation. CT of the head with no acute abnormality, EEG showed normal appearing electroencephalogram without any epileptic deformed features. Patient was found to have mild rhabdo with a CK of 663 treated with IV fluids and improved to 380. Neurology was consulted for further evaluation who felt change in mental status and shakiness could be due to suspected Parkinson's versus secondary Parkinson's disease due to medications. Neurology recommended avoiding adding dopaminergic medications that this could increased confusion and hallucinations. Recommended holding benztropine or trying to lower dose if possible as this can also contribute to hallucinations. He was cleared medically and admitted to medical psychiatry unit for further psychiatric evaluation. [facility] consulted to assist with management of hypertension. Schizophrenia Parkinson's disease -Treatment plan per psychiatry -Currently on Zyprexa 10 mg twice daily, as needed Ativan, Remeron 15 mg nightly Hypertension -Patient started on low-dose Norvasc -BP much improved, continue trending and adjusting medications accordingly. Hypothyroidism -Continue home dose levothyroxine Mild rhabdo, resolved -Total CK on 02/07 was 206 DVT prophylaxis-ambulation We will continue to follow BP for 1 more day and likely sign off tomorrow. Patient can be transferred to regular psychiatry unit.
[2018-02-08] MEDS: LORazepam 1 MG Tablet PO PRN (16:20)
--- NOTE | 2018-02-08 17:44 | P.PNPSY ---
Subjective Remarks: Patient seen for follow up; chart reviewed. Discussion with nursing staff reported that patient compliant with medications, slept well, with elevated BP readings. Patient was found sitting on hospital bed, eating lunch, noted with superficial responses but cooperative. Patient staes that he is feeling "ok", recalls fall yesterday but unable to elaborate on why he had gotten up out of bed. Patient states that he continues to feel "wobbly" when he walks. Patient denies any difficulty bowel movement, reports adequate appetite, denies any perceptional services, denies any SI today. Review of Systems All other systems reviewed negative except as stated in HPI Mental Status Examination Appearance: Appropriate Consciousness: Alert Orientation: Person, Place, Date/Time (year only) Speech: Hesitant (lessening) Language: Other (Limited) Fund of Knowledge: Inadequate Attention and Concentration: Adequate Memory: Impaired Mood: Good Affect: Blunt Thought Process & Associations: Other ([place]) Thought Content: Thought blocking (lessening), Delusional Hallucination Type: None Delusion Type: Paranoid (lessening) Suicidal Ideation: No Suicidal Plan: No Suicidal Intention: No Homicidal Ideation: No Homicidal Plan: No Homicidal Intention: No Insight: Poor Judgment: Poor Assessment and Plan - Assessment (1) Schizophrenia Code(s): F20.9 - Schizophrenia, unspecified Status: Acute - Plan Plan: Patient this time continues with limited responses during interview which likely also secondary to negative symptoms from chronic mental illness. Patient denying any perceptional disturbances, denying any suicide ideations today. Patient continues to have difficulty with ambulation and requires assistance which patient likely will require physical rehabilitation after discharge. Patient recently restarted on Remeron last evening. We will continue current treatment. Hospitalist input appreciated. We will continue to monitor mood and behavior. Discharge planning a progress. Justification for Continued Inpatient Stay: At risk of further decompensation a lower level care.
[2018-02-08] MEDS: Mirtazapine 15 MG Tablet PO SCH (20:11)
[2018-02-09] MEDS: Levothyroxine 100 MCG Tablet PO SCH (06:18)
--- NOTE | 2018-02-09 08:30 | P.PN ---
Subjective Interval history: Follow-up visit for hypertension. Patient seen and examined resting in bed comfortably, appears to be in no acute distress. Denies any headaches, dizziness, nausea, vomiting or pain. Nursing staff does not report any acute events overnight or this morning. Physical Exam Vital signs: Vital Signs 02/08/18 18:07 02/09/18 05:40 Temperature 36.5 C 36.4 C Pulse Rate 100 H 81 Respiratory Rate 17 16 Blood Pressure 171/83 H 121/62 Pulse Oximetry 93 L Intake & Output 02/08/18 02/09/18 02/09/18 18:59 06:59 18:59 Intake Total 840 / 840 720 / 720 Output Total Balance 840 / 840 719 / 719 Weight 68.7 kg Intake: Oral 840 / 840 720 / 720 Output: Urine Narrative: GENERAL: Developed elderly male resting in bed in no acute distress. SKIN: Warm and dry. HEAD: Atraumatic. Normocephalic. EYES: Pupils equal and round. No scleral icterus. No injection or drainage. ENT: No nasal bleeding or discharge. Mucous membranes pink, dry. NECK: Trachea midline. CARDIOVASCULAR: Regular rate and rhythm. RESPIRATORY: No accessory muscle use. Clear to auscultation. Breath sounds equal bilaterally. GASTROINTESTINAL: Abdomen soft, non-tender, nondistended.+ Bowel sounds MUSCULOSKELETAL: Extremities without clubbing, cyanosis, or edema. No obvious deformities. NEUROLOGICAL: Awake and alert. No obvious cranial nerve deficits. Motor grossly within normal limits. Moving all extremities spontaneously. Soft spoken, clear speech. Results - Labs CBC & Chem 7: 02/07/18 13:08 Assessment and Plan - Plan 62-year-old male with past medical history significant for schizophrenia, HTN, hypothyroidism, Parkinson's, and tobacco abuse who presented to the emergency department on 01/31 from assisted living facility due to altered mental status and reported shakiness. Patient was admitted for further evaluation. CT of the head with no acute abnormality, EEG showed normal appearing electroencephalogram without any epileptic deformed features. Patient was found to have mild rhabdo with a CK of 663 treated with IV fluids and improved to 380. Neurology was consulted for further evaluation who felt change in mental status and shakiness could be due to suspected Parkinson's versus secondary Parkinson's disease due to medications. Neurology recommended avoiding adding dopaminergic medications that this could increased confusion and hallucinations. Recommended holding benztropine or trying to lower dose if possible as this can also contribute to hallucinations. He was cleared medically and admitted to medical psychiatry unit for further psychiatric evaluation. [facility] consulted to assist with management of hypertension. Schizophrenia Parkinson's disease -Treatment plan per psychiatry -Currently on Zyprexa 10 mg twice daily, as needed Ativan, Remeron 15 mg nightly Hypertension -Continue on low-dose Norvasc -BP fluctuating, BP recordings to be documented along with what extremity this is taken on. Hypothyroidism -Continue home dose levothyroxine Mild rhabdo, resolved -Total CK on 02/07 was 206 DVT prophylaxis-ambulation Discussed Condition With: Discussed with RN and Dr. Flores.
[2018-02-09] MEDS: amLODIPine 5 MG Tablet PO SCH (09:35)
[2018-02-09] MEDS: Docusate Sodium 100 MG Capsule PO SCH ×2 (09:35→20:51)
[2018-02-09] MEDS: OLANZapine 10 MG ODT Tablet PO SCH ×2 (09:35→20:51)
--- NOTE | 2018-02-09 14:58 | P.PNPSY ---
Subjective Remarks: Patient seen for follow, chart reviewed. Discussion with nursing staff reported the patient no behavioral changes, slept well last evening. Patient was found lying hospital bed noted B, cooperative other continues to be guarded during interview. Patient states that he has some difficulty with sleep this evening, reports his mood as being "pretty bad" but was not able to elaborate why. Patient states he has adequate appetite although sometimes disliking the food but denying any auditory hallucinations and denying any suicide ideations today. Patient reports having visited by sister when he states "okay. Patient presented to mental health court which patient was maintained on a continuance and likely will require discharge to [facility] facility if patient will require further rehabilitation prior to transitioning back to an assisted living facility. Review of Systems All other systems reviewed negative except as stated in HPI Mental Status Examination Appearance: Appropriate Consciousness: Alert Orientation: Person, Place, Date/Time (year only) Speech: Hesitant (lessening) Language: Other (Limited) Fund of Knowledge: Inadequate Attention and Concentration: Adequate Memory: Impaired Mood: Other ("pretty bad") Affect: Blunt Thought Process & Associations: Other ([place]) Thought Content: Thought blocking (lessening) Hallucination Type: None Delusion Type: Paranoid (lessening) Suicidal Ideation: No Suicidal Plan: No Suicidal Intention: No Homicidal Ideation: No Homicidal Plan: No Homicidal Intention: No Insight: Poor Judgment: Poor Assessment and Plan - Assessment (1) Schizophrenia Code(s): F20.9 - Schizophrenia, unspecified Status: Acute - Plan Plan: Patient noted to be less internally preoccupied, denying any perceptional services, denying any suicide ideations continues to have some paranoia and guarded. Patient to continue physical therapy, patient to continue current treatment. We will continue to monitor mood and behavior. Discharge planning in progress. Justification for Continued Inpatient Stay: At risk of further decompensation at lower level of care.
[2018-02-09] MEDS: LORazepam 1 MG Tablet PO PRN (18:28)
[2018-02-09] MEDS: Mirtazapine 15 MG Tablet PO SCH (20:51)
[2018-02-10] MEDS: Levothyroxine 100 MCG Tablet PO SCH (06:04)
[2018-02-10] MEDS: OLANZapine 10 MG ODT Tablet PO SCH ×2 (08:29→20:47)
[2018-02-10] MEDS: amLODIPine 5 MG Tablet PO SCH (08:29)
[2018-02-10] MEDS: Docusate Sodium 100 MG Capsule PO SCH ×2 (08:29→20:47)
--- NOTE | 2018-02-10 08:52 | P.PNPSY ---
Subjective Remarks: Patient seen for follow, chart reviewed. Discussion nursing staff reported the patient had episode of "stiffening" which she received Ativan which was relieved last evening. Patient found sitting in hospital bed noted B, cooperative, eating breakfast noted to be in good spirits. Patient states that he has been feeling "okay" reports eating and drinking well, with adequate bowel movement. Patient recalls having felt stiff last evening but that Ativan has helped. Denies any physical complaints this morning. Patient states that he feels "a little under the weather". Patient denying suicide ideations today but stated had a fleeting suicidal thought yesterday. Patient continues to endorse auditory hallucinations today but they are mostly singing oriental orthodox songs Review of Systems All other systems reviewed negative except as stated in HPI Mental Status Examination Appearance: Appropriate Consciousness: Alert Orientation: Person, Place, Date/Time (year only) Speech: Hesitant (lessening) Language: Other (Limited) Fund of Knowledge: Inadequate Attention and Concentration: Adequate Memory: Impaired Mood: Other ("A little under the weather") Affect: Blunt (But more reactive today) Thought Process & Associations: Other ([place]) Thought Content: Hallucinations Hallucination Type: Auditory (Singing oriental orthodox songs) Delusion Type: Paranoid (lessening) Suicidal Ideation: No Suicidal Plan: No Suicidal Intention: No Homicidal Ideation: No Homicidal Plan: No Homicidal Intention: No Insight: Poor Judgment: Poor Assessment and Plan - Assessment (1) Schizophrenia Code(s): F20.9 - Schizophrenia, unspecified Status: Acute - Plan Plan: Patient this time noted to have more reactive affect, engaging more in interview with minimal thought blocking. Patient continues to endorse auditory hallucinations but are mostly of voices singing oriental orthodox songs. Patient denying any suicide ideations today but did have fleeting suicidal thought yesterday. We will add diphenhydramine 25 mg p.o. twice daily for EPS, will monitor for more confusion due to anticholinergic effects of this medication. Continue rest of medications. Continue to monitor mood and behavior. Patient to continue to work with physical therapy. Discharge planning a progress. Justification for Continued Inpatient Stay: At risk for further decompensation if at lower level of care
--- NOTE | 2018-02-10 11:28 | P.PN ---
Subjective Interval history: pt. being seen for HTN. Sleepy, awakes to voice but not talking. Following simple commands. BP better controlled. Not eating much per RN, requested Ensure. Difficult to obtain ROS from pt. Sitter at [facility] 12 point ROS difficult to obtain Physical Exam Vital signs: Vital Signs 02/09/18 20:00 02/10/18 06:41 Temperature 99.2 F 98.3 F Pulse Rate 86 88 Respiratory Rate 15 16 Blood Pressure 111/62 134/70 Pulse Oximetry 93 L 94 L Intake & Output 02/09/18 02/10/18 02/10/18 18:59 06:59 18:59 Intake Total 480 / 480 360 / 360 Balance 480 / 480 360 / 360 Intake: Oral 480 / 480 360 / 360 Other: # Voids 2 Narrative: GENERAL: Developed elderly male resting in bed in no acute distress. SKIN: Warm and dry. HEAD: Atraumatic. Normocephalic. EYES: Pupils equal and round. No scleral icterus. No injection or drainage. ENT: No nasal bleeding or discharge. Mucous membranes pink, dry. NECK: Trachea midline. CARDIOVASCULAR: Regular rate and rhythm. RESPIRATORY: No accessory muscle use. Clear to auscultation. Breath sounds equal bilaterally. GASTROINTESTINAL: Abdomen soft, non-tender, nondistended.+ Bowel sounds MUSCULOSKELETAL: Extremities without clubbing, cyanosis, or edema. No obvious deformities. NEUROLOGICAL: Awakes to voice, non verbal. Follows commands. Moving all extremities spontaneously. Results - Labs CBC & Chem 7: 02/07/18 13:08 Assessment and Plan - Plan Assessment/Plan: 62-year-old male with past medical history significant for schizophrenia, HTN, hypothyroidism, Parkinson's, and tobacco abuse who presented to the emergency department on 01/31 from assisted living facility due to altered mental status and reported shakiness. Patient was admitted for further evaluation. CT of the head with no acute abnormality, EEG showed normal appearing electroencephalogram without any epileptic deformed features. Patient was found to have mild rhabdo with a CK of 663 treated with IV fluids and improved to 380. Neurology was consulted for further evaluation who felt change in mental status and shakiness could be due to suspected Parkinson's versus secondary Parkinson's disease due to medications. Neurology recommended avoiding adding dopaminergic medications that this could increased confusion and hallucinations. Recommended holding benztropine or trying to lower dose if possible as this can also contribute to hallucinations. He was cleared medically and admitted to medical psychiatry unit for further psychiatric evaluation. [facility] consulted to assist with management of hypertension. Schizophrenia Parkinson's disease -Treatment plan per psychiatry -Currently on Zyprexa 10 mg twice daily, as needed Ativan, Remeron 15 mg nightly Malnourished -Enc. PO intake, Add Ensure 1 can TID Hypertension -Continue on low-dose Norvasc -BP better controlled, continue with present tx -continue with Clonidine PRN Hypothyroidism -Continue home dose levothyroxine Mild rhabdo, resolved -Total CK on 02/07 was 206 DVT prophylaxis-ambulation BP stable, will sign off. Consult if needed.
[2018-02-10] MEDS: LORazepam 1 MG Tablet PO PRN (17:35)
[2018-02-10] MEDS: Mirtazapine 15 MG Tablet PO SCH (20:47)
[2018-02-11] MEDS: Levothyroxine 100 MCG Tablet PO SCH (04:59)
[2018-02-11] MEDS: OLANZapine 10 MG ODT Tablet PO SCH ×2 (08:40→20:32)
[2018-02-11] MEDS: Docusate Sodium 100 MG Capsule PO SCH ×2 (08:40→20:32)
[2018-02-11] MEDS: amLODIPine 5 MG Tablet PO SCH (08:40)
--- NOTE | 2018-02-11 16:45 | P.PNPSY ---
Subjective Remarks: Patient was seen and case discussed with nursing. Patient is minimally interactive during the interview. Seclusive to his bed. Affect is blunted. His behaving well on the unit. Has not had any more falls today per nursing. Thought process is concrete and simple Mental Status Examination Appearance: Appropriate Consciousness: Alert Orientation: Person, Place, Date/Time (year only) Speech: Hesitant (lessening) Language: Other (Limited) Fund of Knowledge: Inadequate Attention and Concentration: Adequate Memory: Impaired Mood: Other ("A little under the weather") Affect: Blunt (But more reactive today) Thought Process & Associations: Other ([place]) Thought Content: Hallucinations Hallucination Type: Auditory (Singing taoist songs) Delusion Type: Paranoid (lessening) Suicidal Ideation: No Suicidal Plan: No Suicidal Intention: No Homicidal Ideation: No Homicidal Plan: No Homicidal Intention: No Insight: Poor Judgment: Poor Assessment and Plan - Assessment (1) Schizophrenia Code(s): F20.9 - Schizophrenia, unspecified Status: Acute - Plan Plan: Continue current treatment plan Justification for Continued Inpatient Stay: Patient would decompensate in a less restrictive setting
[2018-02-11] MEDS: Mirtazapine 15 MG Tablet PO SCH (20:32)
[2018-02-12] MEDS: Levothyroxine 100 MCG Tablet PO SCH (05:50)
[2018-02-12] MEDS: amLODIPine 5 MG Tablet PO SCH (08:22)
[2018-02-12] MEDS: Docusate Sodium 100 MG Capsule PO SCH ×2 (08:22→20:21)
[2018-02-12] MEDS: OLANZapine 10 MG ODT Tablet PO SCH ×2 (08:22→20:21)
[2018-02-12] MEDS: LORazepam 1 MG Tablet PO PRN ×2 (11:39→12:07)
[2018-02-12] MEDS: Acetaminophen 325 MG Tablet PO PRN (16:08)
--- NOTE | 2018-02-12 16:10 | P.PNPSY ---
Subjective Remarks: Patient was seen and case discussed with nursing. Per nursing, patient was talkative and pleasant in the a.m. In the early afternoon he became irritable and told the nurse to leave. During my interview he is internally preoccupied and becomes tearful. Patient said he had fleeting suicidal ideation yesterday with. Appears to be internally stimulated. Largely seclusive to bed. Thought process is disorganized patient is confused. He is compliant with his medications Mental Status Examination Appearance: Appropriate Consciousness: Alert Orientation: Person, Place Speech: Hesitant (lessening) Language: Other (Limited) Fund of Knowledge: Inadequate Attention and Concentration: Adequate Memory: Impaired Mood: Other ("A little under the weather") Affect: Other (Tear[place]) Thought Process & Associations: Disorganized Thought Content: Hallucinations Hallucination Type: Auditory (Singing evangelical songs) Delusion Type: Paranoid (lessening) Suicidal Ideation: No Suicidal Plan: No Suicidal Intention: No Homicidal Ideation: No Homicidal Plan: No Homicidal Intention: No Insight: Poor Judgment: Poor Assessment and Plan - Assessment (1) Schizophrenia Code(s): F20.9 - Schizophrenia, unspecified Status: Acute - Plan Plan: Continue current treatment plan Justification for Continued Inpatient Stay: Patient would decompensate in a less restrictive setting
[2018-02-12] MEDS: Mirtazapine 15 MG Tablet PO SCH (20:21)
[2018-02-13] MEDS: LORazepam 1 MG Tablet PO PRN (01:54)
[2018-02-13] MEDS: Levothyroxine 100 MCG Tablet PO SCH (06:06)
[2018-02-13] MEDS: OLANZapine 10 MG ODT Tablet PO SCH (09:50)
[2018-02-13] MEDS: amLODIPine 5 MG Tablet PO SCH (09:50)
[2018-02-13] MEDS: Docusate Sodium 100 MG Capsule PO SCH ×2 (09:50→20:08)
--- NOTE | 2018-02-13 19:44 | P.PNPSY ---
Subjective Remarks: Patient seen for follow-up, chart reviewed. Discussion nursing staff reported the patient continues to endorse auditory hallucinations with zoroastrianism content , noted with some thought blocking as well but denying any suicide ideations and required Ativan less evening due to episode of agitation. Patient was found lying hospital bed noted B, cooperative. Patient continued with concrete answers stating that he is feeling "good" reports eating and drinking well with adequate bowel movement. Patient continues to endorse auditory hallucinations of "[place]" denying any suicide ideations. Patient states that been visited by his sister but did not elaborate. Review of Systems All other systems reviewed negative except as stated in HPI Mental Status Examination Appearance: Appropriate Consciousness: Alert Orientation: Person, Place Speech: Hesitant (lessening) Language: Other (Limited) Fund of Knowledge: Inadequate Attention and Concentration: Adequate Memory: Impaired Mood: Good Affect: Blunt Thought Process & Associations: Other (concrete) Thought Content: Hallucinations Hallucination Type: Auditory (zoroastrianism content) Delusion Type: Paranoid (lessening) Suicidal Ideation: No Suicidal Plan: No Suicidal Intention: No Homicidal Ideation: No Homicidal Plan: No Homicidal Intention: No Insight: Poor Judgment: Poor Assessment and Plan - Assessment (1) Schizophrenia Code(s): F20.9 - Schizophrenia, unspecified Status: Acute - Plan Plan: Patient continues to endorse auditory hallucinations and zoroastrianism content denying any command type, denying any suicide ideations. We will increase olanzapine to 10 mg a.m./15 mg at bedtime for psychosis. Monitor for possible EPS, continue diphenhydramine 25 milligrams twice daily for EPS. We will continue rest of medications. We will continue to monitor mood and behavior. Physical therapy to continue evaluation and treatment. Discharge planning in progress. Justification for Continued Inpatient Stay: At risk for further decompensation if at lower level of care.
[2018-02-13] MEDS: OLANZapine 15 MG ODT Tablet PO SCH (20:08)
[2018-02-13] MEDS: Mirtazapine 15 MG Tablet PO SCH (20:08)
[2018-02-14] MEDS: Levothyroxine 100 MCG Tablet PO SCH (05:37)
[2018-02-14] MEDS: OLANZapine 10 MG ODT Tablet PO SCH (09:18)
[2018-02-14] MEDS: Docusate Sodium 100 MG Capsule PO SCH ×2 (09:18→20:13)
[2018-02-14] MEDS: amLODIPine 5 MG Tablet PO SCH (09:18)
--- NOTE | 2018-02-14 18:32 | P.PNPSY ---
Subjective Remarks: Patient seen for follow up; chart reviewed. Discussion with nursing staff reported patient with no episodes of agitation. Patient was found lying on hospital bed, calm and cooperative, he states having slept well last night, mood has been "ok", noted with adequate engagement in interview, although eye contact poor but improving. Patient denies any auditory or visual hallucinations , denies any suicidal or homicidal ideations. Review of Systems All other systems reviewed negative except as stated in HPI Mental Status Examination Appearance: Appropriate Consciousness: Alert Orientation: Person, Place Speech: Unremarkable Language: Other (Limited) Fund of Knowledge: Inadequate Attention and Concentration: Adequate Memory: Impaired Mood: Good Affect: Blunt Thought Process & Associations: Other (concrete) Thought Content: Appropriate Hallucination Type: None Delusion Type: Paranoid (lessening) Suicidal Ideation: No Suicidal Plan: No Suicidal Intention: No Homicidal Ideation: No Homicidal Plan: No Homicidal Intention: No Insight: Poor Judgment: Poor Assessment and Plan - Assessment (1) Schizophrenia Code(s): F20.9 - Schizophrenia, unspecified Status: Acute - Plan Plan: Patient noted with improvement in mood, continues with negative symptoms but more reactive affect today. No perceptual disturbances, no SI today. Continue current treatment, continue to monitor mood and behavior. Discharge planning in progress. Justification for Continued Inpatient Stay: At risk for further decompensation at lower level of care.
[2018-02-14] MEDS: OLANZapine 15 MG ODT Tablet PO SCH (20:13)
[2018-02-14] MEDS: Mirtazapine 15 MG Tablet PO SCH (20:13)
[2018-02-15 05:27] VITALS: BP 156/85; PULSE 87; RESP 18; TEMP 97.5; O2SAT 93
[2018-02-15] MEDS: Levothyroxine 100 MCG Tablet PO SCH (05:57)
--- NOTE | 2018-02-15 07:33 | P.PNPSY ---
Subjective Remarks: Patient seen for follow, chart reviewed. Discussion nursing staff reported the patient continues to endorse occasional auditory hallucinations, has been seclusive, working with physical therapy yesterday, compliant with medications. Patient was found lying hospital bed noted B, cooperative. Patient states that he is feeling "not good" but was able to elaborate why. Patient later states that his mood in general has been okay, denying any perceptual disturbances, denying any suicidal homicidal ideations. Patient denies any physical complaints at this time and agrees to sit in a day room later today. He mentions just laying in bed watching TV all day, which encouragement to participate in groups and activities was endorsed which he acknowledged. Review of Systems All other systems reviewed negative except as stated in HPI Mental Status Examination Appearance: Appropriate Consciousness: Alert Orientation: Person, Place Speech: Unremarkable Language: Other (Limited) Fund of Knowledge: Inadequate Attention and Concentration: Adequate Memory: Impaired Mood: Good Affect: Blunt Thought Process & Associations: Other (concrete) Thought Content: Appropriate Hallucination Type: None Delusion Type: Paranoid (lessening) Suicidal Ideation: No Suicidal Plan: No Suicidal Intention: No Homicidal Ideation: No Homicidal Plan: No Homicidal Intention: No Insight: Poor Judgment: Impulsive Assessment and Plan - Assessment (1) Schizophrenia Code(s): F20.9 - Schizophrenia, unspecified Status: Acute - Plan Plan: Patient this time continues complaints of medications, noted to have adequate response to interview, noted to have some spiritism preoccupation with spring but denying any perceptual disturbances during interview today nor denying any suicide ideations. Continue current treatment. Continue to encourage patient to be less seclusive and participating groups and activities. Discharge planning in progress. Justification for Continued Inpatient Stay: At risk for further decompensation if at lower level of care
[2018-02-15] MEDS: OLANZapine 10 MG ODT Tablet PO SCH (08:39)
[2018-02-15] MEDS: Docusate Sodium 100 MG Capsule PO SCH (08:39)
[2018-02-15] MEDS: amLODIPine 5 MG Tablet PO SCH (08:39)
[2018-02-15] MEDS: LORazepam 1 MG Tablet PO PRN (12:46)
--- NOTE | 2018-02-15 14:54 | P.DSPSY ---
Psychiatry Discharge Summary Inpatient Psychiatric care?: Yes Advance Directives: No Mental Health Advance Directive: No Health Care Proxy: No - Admission Admission Date: February 02, 2018 18:46 - Admission Diagnosis (1) Schizophrenia Code(s): F20.9 - Schizophrenia, unspecified Brief History: Patient is a 62-year-old man, domiciled that [facility] assisted living facility, with a past psychiatric history of schizophrenia and dementia, with previous psychiatric admissions, with a past medical history significant for hypothyroidism who was initially brought to the ED for altered mental status, tremors and hallucinations which patient was initially admitted to the medical' s service which psychiatry was consulted for evaluation and was subsequently admitted to the inpatient psychiatry unit for further evaluation and management psychosis. Initial consult evaluation noted below: The patient is a 62 -year-old man, domiciled in [facility], with hx of schizophrenia since his 20s, dementia, he is on olanzapine 20 mg at bedtime, Remeron 15 mg, who presents to the ER with altered mental status and increased tremor. He also states he has been having increased hallucinations. He is a poor historian and cannot tell me when he began having change in mental status or how long he has been having hallucinations. He states his tremors come and go and can be bothersome at times. The patient reports that he has been seeing his sister tried to treat him with a 45 gun. The patient is oppositional, irritable, just answer selectively to some of my questions. He does denies suicidal enemas ideation, he denies visual and auditory hallucinations at this moment. The patient is oriented to person, but confused and partially oriented in time and place. The patient was given olanzapine 10 mg IM previously to this encounter due to agitation. He was already seen by neurology given his tremors: CT head was unremarkable. CXR unremarkable ammonia wnl. Urine is pending. Neurology recommendations were : tremors are mild, intermittent and no cogwheeling rigiditywould avoid adding dopaminergic medications as these can increase confusion and hallucinations. would hold benztropine or try to lower dose if possible as this can also contribute to hallucinations agree with psychiatry consult. Discussion with nursing staff reported the patient noted with some disorganized behavior earlier this morning, endorsing auditory hallucinations as well as visual hallucinations of his sister and noted to be unsteady with his gait which patient was transferred to a room closer to the nurse's station and put on one-to-one observation for safety. Patient was found lying hospital bed and initially sedated as he had received olanzapine 10 mg IM earlier this morning due to disorganization and agitation in later interview when he was able to participate in interview. Patient noted to be very guarded, superficially cooperative but also poor historian as current symptomatology interferes with patient's interactions at this time. Patient states that there are people trying to control his mind pertaining to sex and food for the past couple of months but did not want to further elaborate. He recalls his sister having brought him to the hospital but was unable to recall events prior to his admission. He states he is feeling "depressed" and that he wants to . Patient and denying any auditory hallucinations but stating having visual hallucination of "crosses". Patient unable to provide any further history to the current psychosis he was able to report that he had [facility] assisted living facility for the past month and that his sister is Jenny Vicente ). Education Manager was able to contact patient's sister to obtain collateral information as well as to obtain consent for treatment as patient's sister will be healthcare surrogate and guardian advocate during this admission. She states that patient has been struggling with his medications since July this year and had been following up with Yuniel Naqvi and has been on Haldol for very long time. Patient states at the age of 62 patient was switched over to Zyprexa and Haldol discontinued after patient was [place] acted in December and was doing better with that regimen. She mentions that her Cogentin was recently increased to 2 mg p.o. twice daily and patient was discharged to an assisted living facility in January 26 2018 which subsequently led to his current admission. Tobacco Use In Past 30 Days: No How Often Do You Have a Drink Containing Alcohol: Never Hospital Course: Patient is a 62-year-old man, domiciled that [facility] assisted living facility, with a past psychiatric history of schizophrenia and dementia, with previous psychiatric admissions, with a past medical history significant for hypothyroidism who was initially brought to the ED for altered mental status, tremors and hallucinations which patient was initially admitted to the medical' s service which psychiatry was consulted for evaluation and was subsequently admitted to the inpatient psychiatry unit for further evaluation and management psychosis. Patient was started on olanzapine and titrated to 10mg daily/15mg HS , diphenhydramine 25mg BID, mirtazapine 15mg HS which he tolerated medications well with no adverse drug reactions, continued on medications for chronic medical illnesses which he tolerated well. He was noted to initially endorse feeling depressed with auditory and visual hallucinations but as treatment progress patient noted with improved mood, with occasional episodes of auditory hallucinations but mostly of positive spiritism content and not distressing. He was able to engage in treatment and participate in physical therapy during admission. Patient continued to deny any suicidal or homicidal ideation, no longer endorsed any visual hallucinations. He responded well to treatment, was noted to be cooperative with staff, had good behavioral control with no evidence of any verbal or physical aggressive behavior toward others and was noted to have stable mood with treatment. Upon discharge patient reported feeling good denied any perceptual disturbances nor suicidal ideations or homicidal ideations. Patient agreed to continue treatment and follow up appointments for continuity of care. Patient will be discharged to rehabilitation program as recommended by physical therapist with plan to continue recommendations on an outpatient setting. Supportive psychotherapy provided. Suicide and violence risk assessment on day of discharge both suggest lower imminent risk, and the patient's level of function is adequate for planned level of outpatient care. Patient has maximized benefit from this inpatient psychiatric hospital stay and to return to psychiatric emergency room for any concerning psychiatric symptoms. Patient agrees with plan. - Discharge Discharge Date: 02/15/18 - Discharge Diagnosis (1) Schizophrenia Code(s): F20.9 - Schizophrenia, unspecified Status: Acute Discharge Disposition: Inpatient Rehab Unit - Discharge Instructions Discharge Diet: Heart Healthy Diet Activities You Can Perform: Weight Bearing As Tolerat - Discharge Time > 30 minutes Mental Status Examination Appearance: Appropriate Consciousness: Alert Orientation: Person, Place Speech: Unremarkable Language: Other (Limited) Fund of Knowledge: Inadequate Attention and Concentration: Adequate Memory: Impaired Mood: Good Affect: Blunt Thought Process & Associations: Other (concrete) Thought Content: Appropriate Hallucination Type: None Delusion Type: None Suicidal Ideation: No Suicidal Plan: No Suicidal Intention: No Homicidal Ideation: No Homicidal Plan: No Homicidal Intention: No Insight: Poor Judgment: Impulsive Discharge/Advance Care Plan - Results Vital Signs: Last Vital Signs Temp 97.5 F L 02/15/18 05:26 Pulse 87 02/15/18 05:26 Resp 18 02/15/18 05:26 BP 156/85 H 02/15/18 05:26 Pulse Ox 93 L 02/15/18 05:26 Lab Results: Laboratory Results Hemoglobin A1c 5.8 % (4.3-6.0) 02/06/18 10:02 Triglycerides 69 mg/dL (42-150) 02/06/18 10:02 Cholesterol 138 mg/dL (120-200) 02/06/18 10:02 LDL Cholesterol, Calc 76 mg/dL (0-99) 02/06/18 10:02 HDL Cholesterol 48.5 mg/dL (40.0-60.0) 02/06/18 10:02 Summary of Procedures: none Imaging: ITS Impressions Hip X-Ray 02/07/18 00:00 CONCLUSION: Mild osteoarthritis at the left hip. No acute bony abnormality. Pending Results: None - Medications Number of antipsychotic medications at discharge: 1 - Discharge Care Plan Goals to Promote Your Health: * To prevent worsening of your condition and complications * To maintain your health at the optimal level Directions to Meet Your Goals: Take your medications as prescribed Follow your dietary instruction Follow activity as directed Keep your appointments as scheduled Take your immunizations and boosters as scheduled If your symptoms worsen call your PCP, if no PCP go to Urgent Care Center or Emergency Room For 24/01 questions related to your inpatient stay or results of tests pending at discharge, please contact Dr. Jere Flores MD at Smoking is Dangerous to Your Health. Avoid second hand smoking
== END 2018-02-15 15:46 ==
LOC: H4EA 18:46
PROVIDERS: ADMIT Student in an Organized Health Care Education/Training Program; ATTEND Student in an Organized Health Care Education/Training Program

== ENCOUNTER 2018-02-16 15:22 | Inpatient (IN) ==
--- NOTE | 2018-02-16 15:54 | ED ---
HPI General Chief Complaint: Psychiatric Symptoms Stated Complaint: Psych Eval Time Seen by Provider: 02/16/18 15:42 Source: patient Mode of arrival: EMS Limitations: no limitations History of Present Illness HPI Narrative: 62-year-old male with a history of schizophrenia, fluctuating mental status, major depression, anxiety, insomnia presents to the emergency department via [facility] as a Chavez act for auditory hallucinations indicating suicidal or homicidal ideations. According to Chavez act, patient was "noncompliant with interview. Not responsive but alert and calm.". Limited information is obtained from the patient. [facility] states upon their arrival , he appeared diaphoretic, tachycardic (rate 120-130), and normotensive. Says his temperature was elevated about 99degrees. They applied cool packs and administered fluid with good results. Says during transport, his HR and temperature normalized. MD complaint: suicidal ideation Duration: constant History of same: Yes Relieving factors: none Exacerbating factors: none Context: new medication(s) Associated psychiatric symptoms: auditory hallucinations Associated symptoms: denies other symptoms Treatments prior to arrival: none Related Data Home Medications Medication Instructions Recorded Confirmed amlodipine [Norvasc] 5 mg PO DAILY 02/16/18 02/19/18 Previous Rx's Medication Instructions Recorded cyanocobalamin (vitamin B-12) 1,000 mcg SUB-Q Q24H ml 02/22/18 cyanocobalamin (vitamin B-12) 1,000 mcg SUB-Q Q30D ml 02/22/18 cyanocobalamin (vitamin B-12) 1,000 mcg SUB-Q Q7D ml 02/22/18 divalproex 500 mg PO TID cap 02/22/18 lorazepam [Ativan] 2 mg IV.PUSH Q10M PRN ml 02/22/18 Allergies Allergy/AdvReac Type Severity Reaction Status Date / Time No Known Allergies Allergy Verified 01/31/18 18:22 Review of Systems ROS: all other systems reviewed are negative PMFSH Social History Social History Substance History: No History of Abuse Second Hand Smoke Exposure: No Smoking Status: Former smoker Tobacco Type: Cigarettes How Often Do You Have a Drink Containing Alcohol: Never Hx Recent Travel: No Immunization History Tetanus Immunization: Unsure Exam Narrative Exam Narrative: GENERAL: Well-developed, well-nourished in no apparent distress SKIN: Focused skin assessment warm/dry. HEAD: Atraumatic. Normocephalic. EYES: Pupils equal and round. No scleral icterus. No injection or drainage. no nystagmus ENT: No nasal bleeding or discharge. Mucous membranes pink and moist. NECK: Trachea midline. No JVD. no lymphadenopathy CARDIOVASCULAR: Regular rate and rhythm. No murmur appreciated. RESPIRATORY: No accessory muscle use. Clear to auscultation. Breath sounds equal bilaterally. GASTROINTESTINAL: Abdomen soft, non-tender, nondistended. Hepatic and splenic margins not palpable. MUSCULOSKELETAL: No obvious deformities. No clubbing. No cyanosis. No edema. NEUROLOGICAL: Awake and alert. No obvious cranial nerve deficits. Motor grossly within normal limits. Normal speech. PSYCHIATRIC: Unusual mood and flat affect; insight and judgment normal. Course Consultations Consultation #1: Case discussed with Dr. Khan of neurology; he agrees that the patient's presentation is concerning for possible first-time seizure. He recommends MRI with/ without contrast, carotid US, AVTAR, RPR, sed rate, B12 and thiamine levels, telemetry monitoring/ seizure precautions, and repeat EEG. Neuro team will consult in AM. Time: 18:26 Initial Documented Vital Signs Temperature 98.8 F 02/16/18 15:39 Pulse Rate 88 02/16/18 15:39 Respiratory Rate 18 02/16/18 15:39 Blood Pressure 116/60 02/16/18 15:39 Pulse Oximetry 95 02/16/18 15:39 Last Documented Vital Signs Temperature 98.4 F 02/19/18 16:00 Pulse Rate 84 02/19/18 17:52 Respiratory Rate 12 02/19/18 17:48 Blood Pressure 101/51 L 02/19/18 16:00 Pulse Oximetry 94 L 02/19/18 16:00 Medical Decision Making CHRIS Attestation CHRIS supervised visit: Yes Attestation: I was present with the advanced practitioner during the management of this patient. I discussed the case with the advanced practitioner and agree with the findings and plan as documented in their note except as noted below. 62yM presenting with seizure-like activity. The patient was discharged from our facility yesterday for schizophrenia and went to a custodial. EMS was called today for change in mental status; on their arrival, the patient was noted to have full-body "shaking" motions, was diaphoretic and tachy to the 120s/130s, and was non-verbal. The patient arrived to the ED mildly confused (unclear baseline mental status) and reports that he doesn't know what happened. It is unclear if the patient had any urinary/ bowel incontinence during this episode. The patient denies history of seizures. Elderly male lying in bed, no acute distress NCAT, pupils 3 mm and reactive bilaterally No intraoral trauma (specifically no bite velazquez on tongue) RRR Lungs clear bilaterally Abdomen soft and non-tender GCS 15, alert and oriented x 3 but appears mildly confused, follows all commands , moves all extremities A/P: 62yM presenting with ? first-time seizure Labs CTH Observe for further seizure-like activity or altered mentation MDM Narrative Medical decision making narrative: 63-year-old male presents to emergency department with suicidal ideations and symptoms concerning for a possible seizure that occurred at his rehab facility. Patient is unable to tell us exactly what happened but [facility] reports patient was laying on his side, diaphoretic, elevated temperature, and tachycardic and 138. After they apply cool packs and IV fluids, patient began to become more interactive with [facility] and his HR decreased. Based off of history and physical, there is concern for possible seizure that occurred while at the facility. Labs ordered for evaluation. Patient has elevated CK over 1600. Dr. Cox spoke with Dr Khan, refrigerated national truck driver neurology, who recommended Thiamine, B12 levels, AVTAR, RPR, MRI Brain w/wo contrast. He also recommended carotid US, repeat EEG but will differ to hospitalist for ordering these studies. I spoke with Dr. Tomlinson who accepted this patient with the diagnoses of elevated CK, possibly developing rhabdomyolysis, seizure-like activity, and suicidal ideations. Medical Screen Exam Complete: Yes Emergency Medical Condition: Yes Differential Diagnosis Differential Diagnosis: seizure disorder, rhabdomyolysis, malingering Medical Records Medical records reviewed: Yes I reviewed the patient's medical records. Pt admitted January 31 for AMS and elevated troponin and CK. He had an EEG performed which was normal. He was referred to psychiatry for treatment. He was discharged yesterday with olanzapine 10mg QAM & 15mg QHS, diphenhydramine 25mg BID, and mirtazepine 15mg QHS. He was sent to [facility]. Lab Data Result diagrams: 02/19/18 10:17 02/19/18 10:17 Lab Results 02/16/18 02/16/18 02/16/18 Range/Units 00:00 00:00 16:03 WBC 7.3 (4.0-11.0) th/mm3 RBC 4.09 L (4.50-5.90) mil/mm3 Hgb 12.5 L (13.0-17.0) gm/dL Hct 38.0 L (39.0-51.0) % MCV 93.0 (80.0-100.0) fL MCH 30.6 (27.0-34.0) pg MCHC 32.9 (32.0-36.0) % RDW 15.0 (11.6-17.2) % Plt Count 245 (150-450) th/mm3 MPV 7.3 (7.0-11.0) fL Neut % (Auto) 75.4 H (16.0-70.0) % Lymph % (Auto) 13.4 (9.0-44.0) % [place] % (Auto) 9.4 H (0.0-8.0) % Eos % (Auto) 1.0 (0.0-4.0) % Baso % (Auto) 0.8 (0.0-2.0) % Neut # (Auto) 5.5 (1.8-7.7) th/mm3 Lymph # (Auto) 1.0 (1.0-4.8) th/mm3 [place] # (Auto) 0.7 (0.0-0.9) th/mm3 Eos # (Auto) 0.1 (0.0-0.4) th/mm3 Baso # (Auto) 0.1 (0.0-0.2) th/mm3 WBC Differential . Differential Comment Auto diff final Sodium (136-145) meq/L Potassium (3.5-5.1) meq/L Chloride (98-107) meq/L Carbon Dioxide (21.0-32.0) meq/L Anion Gap (5-15) meq/L BUN (7-18) mg/dL Creatinine (0.60-1.30) mg/dL Estimated GFR (>89) mL/min Random Glucose (74-106) mg/dL Calcium (8.5-10.1) mg/dL Total Bilirubin (0.2-1.0) mg/dL AST (15-37) U/L ALT (12-78) U/L Alkaline Phosphatase (45-117) U/L Total Creatine Kinase (39-308) U/L CK-MB (CK-2) (0.5-3.6) ng/mL CK-MB (CK-2) % (0.0-4.0) % Troponin I 0.05 (0.02-0.05) ng/mL Total Protein (6.4-8.2) g/dL Albumin (3.4-5.0) g/dL Thiamine (70-180) nmol/L Vitamin B12 105 L (193-986) pg/mL TSH (0.358-3.740) uIU/mL Urine Color (Yellw/Straw) Urine Clarity (Clear) Urine pH (5.0-8.5) Ur Specific [place] (1.002-1.035) Urine Protein (Neg-Trace) mg/dL Urine Glucose (UA) (Negative) mg/dL Urine Ketones (Negative) mg/dL Urine Occult Blood (Negative) Urine Nitrate (Negative) Urine Bilirubin (Negative) Urine Urobilinogen (Less than 2) mg/dL Ur Leukocyte Esterase (Negative) Urine RBC (0-3) /hpf Urine WBC (0-5) /hpf Urine Bacteria (None) /hpf Urine Mucus (Occasional) /lpf Micro UA Comment Urine Culture Comments Urine Opiates Screen (Neg) Ur Barbiturates Screen (Neg) Ur Amphetamines Screen (Neg) U Benzodiazepines Scrn (Neg) Urine Cocaine Screen (Neg) U Cannabinoids Screen (Neg) Serum Alcohol (0-5) mg/dL AVTAR Screen (Neg) RPR (Nonreactive) 02/16/18 02/16/18 02/16/18 Range/Units 16:03 16:03 16:08 WBC (4.0-11.0) th/mm3 RBC (4.50-5.90) mil/mm3 Hgb (13.0-17.0) gm/dL Hct (39.0-51.0) % MCV (80.0-100.0) fL MCH (27.0-34.0) pg MCHC (32.0-36.0) % RDW (11.6-17.2) % Plt Count (150-450) th/mm3 MPV (7.0-11.0) fL Neut % (Auto) (16.0-70.0) % Lymph % (Auto) (9.0-44.0) % [place] % (Auto) (0.0-8.0) % Eos % (Auto) (0.0-4.0) % Baso % (Auto) (0.0-2.0) % Neut # (Auto) (1.8-7.7) th/mm3 Lymph # (Auto) (1.0-4.8) th/mm3 [place] # (Auto) (0.0-0.9) th/mm3 Eos # (Auto) (0.0-0.4) th/mm3 Baso # (Auto) (0.0-0.2) th/mm3 WBC Differential Differential Comment Sodium 145 (136-145) meq/L Potassium 4.0 (3.5-5.1) meq/L Chloride 111 H (98-107) meq/L Carbon Dioxide 26.8 (21.0-32.0) meq/L Anion Gap 7 (5-15) meq/L BUN 21 H (7-18) mg/dL Creatinine 1.00 (0.60-1.30) mg/dL Estimated GFR 76 L (>89) mL/min Random Glucose 99 (74-106) mg/dL Calcium 8.2 L (8.5-10.1) mg/dL Total Bilirubin 0.4 (0.2-1.0) mg/dL AST 80 H (15-37) U/L ALT 36 (12-78) U/L Alkaline Phosphatase 117 (45-117) U/L Total Creatine Kinase 1661 H (39-308) U/L CK-MB (CK-2) 3.0 (0.5-3.6) ng/mL CK-MB (CK-2) % 0.2 (0.0-4.0) % Troponin I (0.02-0.05) ng/mL Total Protein 7.1 (6.4-8.2) g/dL Albumin 3.0 L (3.4-5.0) g/dL Thiamine (70-180) nmol/L Vitamin B12 (193-986) pg/mL TSH 1.880 (0.358-3.740) uIU/mL Urine Color (Yellw/Straw) Urine Clarity (Clear) Urine pH (5.0-8.5) Ur Specific [place] (1.002-1.035) Urine Protein (Neg-Trace) mg/dL Urine Glucose (UA) (Negative) mg/dL Urine Ketones (Negative) mg/dL Urine Occult Blood (Negative) Urine Nitrate (Negative) Urine Bilirubin (Negative) Urine Urobilinogen (Less than 2) mg/dL Ur Leukocyte Esterase (Negative) Urine RBC (0-3) /hpf Urine WBC (0-5) /hpf Urine Bacteria (None) /hpf Urine Mucus (Occasional) /lpf Micro UA Comment Urine Culture Comments Urine Opiates Screen Neg (Neg) Ur Barbiturates Screen Neg (Neg) Ur Amphetamines Screen Neg (Neg) U Benzodiazepines Scrn Neg (Neg) Urine Cocaine Screen Neg (Neg) U Cannabinoids Screen Neg (Neg) Serum Alcohol Less than 3 (0-5) mg/dL AVTAR Screen (Neg) RPR (Nonreactive) 02/16/18 02/16/18 02/17/18 Range/Units 16:08 18:35 06:22 WBC (4.0-11.0) th/mm3 RBC (4.50-5.90) mil/mm3 Hgb (13.0-17.0) gm/dL Hct (39.0-51.0) % MCV (80.0-100.0) fL MCH (27.0-34.0) pg MCHC (32.0-36.0) % RDW (11.6-17.2) % Plt Count (150-450) th/mm3 MPV (7.0-11.0) fL Neut % (Auto) (16.0-70.0) % Lymph % (Auto) (9.0-44.0) % [place] % (Auto) (0.0-8.0) % Eos % (Auto) (0.0-4.0) % Baso % (Auto) (0.0-2.0) % Neut # (Auto) (1.8-7.7) th/mm3 Lymph # (Auto) (1.0-4.8) th/mm3 [place] # (Auto) (0.0-0.9) th/mm3 Eos # (Auto) (0.0-0.4) th/mm3 Baso # (Auto) (0.0-0.2) th/mm3 WBC Differential Differential Comment Sodium (136-145) meq/L Potassium (3.5-5.1) meq/L Chloride (98-107) meq/L Carbon Dioxide (21.0-32.0) meq/L Anion Gap (5-15) meq/L BUN (7-18) mg/dL Creatinine (0.60-1.30) mg/dL Estimated GFR (>89) mL/min Random Glucose (74-106) mg/dL Calcium (8.5-10.1) mg/dL Total Bilirubin (0.2-1.0) mg/dL AST (15-37) U/L ALT (12-78) U/L Alkaline Phosphatase (45-117) U/L Total Creatine Kinase (39-308) U/L CK-MB (CK-2) (0.5-3.6) ng/mL CK-MB (CK-2) % (0.0-4.0) % Troponin I (0.02-0.05) ng/mL Total Protein (6.4-8.2) g/dL Albumin (3.4-5.0) g/dL Thiamine 147 (70-180) nmol/L Vitamin B12 (193-986) pg/mL TSH (0.358-3.740) uIU/mL Urine Color Yellow (Yellw/Straw) Urine Clarity Hazy H (Clear) Urine pH 5.0 (5.0-8.5) Ur Specific [place] 1.026 (1.002-1.035) Urine Protein Negative (Neg-Trace) mg/dL Urine Glucose (UA) Negative (Negative) mg/dL Urine Ketones Trace (Negative) mg/dL Urine Occult Blood Negative (Negative) Urine Nitrate Negative (Negative) Urine Bilirubin Negative (Negative) Urine Urobilinogen 2.0 H (Less than 2) mg/dL Ur Leukocyte Esterase Negative (Negative) Urine RBC 1 (0-3) /hpf Urine WBC 3 (0-5) /hpf Urine Bacteria Rare H (None) /hpf Urine Mucus Few H (Occasional) /lpf Micro UA Comment Culture not ind Urine Culture Comments Culture not ind Urine Opiates Screen (Neg) Ur Barbiturates Screen (Neg) Ur Amphetamines Screen (Neg) U Benzodiazepines Scrn (Neg) Urine Cocaine Screen (Neg) U Cannabinoids Screen (Neg) Serum Alcohol (0-5) mg/dL AVTAR Screen Neg (Neg) RPR Nonreactive (Nonreactive) 02/17/18 02/17/18 02/18/18 Range/Units 06:22 11:45 11:48 WBC 4.8 7.0 (4.0-11.0) th/mm3 RBC 4.17 L 4.25 L (4.50-5.90) mil/mm3 Hgb 12.7 L 13.2 (13.0-17.0) gm/dL Hct 39.0 39.2 (39.0-51.0) % MCV 93.5 92.3 (80.0-100.0) fL MCH 30.5 31.0 (27.0-34.0) pg MCHC 32.6 33.6 (32.0-36.0) % RDW 14.7 14.4 (11.6-17.2) % Plt Count 247 249 (150-450) th/mm3 MPV 7.0 6.9 L (7.0-11.0) fL Neut % (Auto) 68.9 79.3 H (16.0-70.0) % Lymph % (Auto) 20.3 13.2 (9.0-44.0) % [place] % (Auto) 7.7 6.3 (0.0-8.0) % Eos % (Auto) 1.9 0.6 (0.0-4.0) % Baso % (Auto) 1.2 0.6 (0.0-2.0) % Neut # (Auto) 3.3 5.5 (1.8-7.7) th/mm3 Lymph # (Auto) 1.0 0.9 L (1.0-4.8) th/mm3 [place] # (Auto) 0.4 0.4 (0.0-0.9) th/mm3 Eos # (Auto) 0.1 0.0 (0.0-0.4) th/mm3 Baso # (Auto) 0.1 0.0 (0.0-0.2) th/mm3 WBC Differential . . Differential Comment Auto diff final Auto diff final Sodium 145 (136-145) meq/L Potassium 3.8 (3.5-5.1) meq/L Chloride 113 H (98-107) meq/L Carbon Dioxide 26.4 (21.0-32.0) meq/L Anion Gap 6 (5-15) meq/L BUN 16 (7-18) mg/dL Creatinine 0.71 (0.60-1.30) mg/dL Estimated GFR Greater than 89 (>89) mL/min Random Glucose 78 (74-106) mg/dL Calcium 8.3 L (8.5-10.1) mg/dL Total Bilirubin 0.8 (0.2-1.0) mg/dL AST 73 H (15-37) U/L ALT 34 (12-78) U/L Alkaline Phosphatase 128 H (45-117) U/L Total Creatine Kinase 1024 H (39-308) U/L CK-MB (CK-2) 2.1 (0.5-3.6) ng/mL CK-MB (CK-2) % 0.2 (0.0-4.0) % Troponin I (0.02-0.05) ng/mL Total Protein 7.1 (6.4-8.2) g/dL Albumin 3.1 L (3.4-5.0) g/dL Thiamine (70-180) nmol/L Vitamin B12 (193-986) pg/mL TSH (0.358-3.740) uIU/mL Urine Color (Yellw/Straw) Urine Clarity (Clear) Urine pH (5.0-8.5) Ur Specific [place] (1.002-1.035) Urine Protein (Neg-Trace) mg/dL Urine Glucose (UA) (Negative) mg/dL Urine Ketones (Negative) mg/dL Urine Occult Blood (Negative) Urine Nitrate (Negative) Urine Bilirubin (Negative) Urine Urobilinogen (Less than 2) mg/dL Ur Leukocyte Esterase (Negative) Urine RBC (0-3) /hpf Urine WBC (0-5) /hpf Urine Bacteria (None) /hpf Urine Mucus (Occasional) /lpf Micro UA Comment Urine Culture Comments Urine Opiates Screen (Neg) Ur Barbiturates Screen (Neg) Ur Amphetamines Screen (Neg) U Benzodiazepines Scrn (Neg) Urine Cocaine Screen (Neg) U Cannabinoids Screen (Neg) Serum Alcohol (0-5) mg/dL AVTAR Screen (Neg) RPR (Nonreactive) 02/18/18 02/19/18 02/19/18 Range/Units 11:48 10:17 10:17 WBC 4.8 (4.0-11.0) th/mm3 RBC 4.28 L (4.50-5.90) mil/mm3 Hgb 13.3 (13.0-17.0) gm/dL Hct 40.0 (39.0-51.0) % MCV 93.3 (80.0-100.0) fL MCH 31.1 (27.0-34.0) pg MCHC 33.4 (32.0-36.0) % RDW 14.7 (11.6-17.2) % Plt Count 244 (150-450) th/mm3 MPV 6.9 L (7.0-11.0) fL Neut % (Auto) 73.8 H (16.0-70.0) % Lymph % (Auto) 16.4 (9.0-44.0) % [place] % (Auto) 6.9 (0.0-8.0) % Eos % (Auto) 2.1 (0.0-4.0) % Baso % (Auto) 0.8 (0.0-2.0) % Neut # (Auto) 3.6 (1.8-7.7) th/mm3 Lymph # (Auto) 0.8 L (1.0-4.8) th/mm3 [place] # (Auto) 0.3 (0.0-0.9) th/mm3 Eos # (Auto) 0.1 (0.0-0.4) th/mm3 Baso # (Auto) 0.0 (0.0-0.2) th/mm3 WBC Differential . Differential Comment Auto diff final Sodium 141 139 (136-145) meq/L Potassium 3.8 3.6 (3.5-5.1) meq/L Chloride 107 106 (98-107) meq/L Carbon Dioxide 24.5 26.1 (21.0-32.0) meq/L Anion Gap 10 7 (5-15) meq/L BUN 13 13 (7-18) mg/dL Creatinine 0.70 0.93 (0.60-1.30) mg/dL Estimated GFR Greater than 89 83 L (>89) mL/min Random Glucose 101 140 H (74-106) mg/dL Calcium 8.4 L 8.0 L (8.5-10.1) mg/dL Total Bilirubin 0.7 0.6 (0.2-1.0) mg/dL AST 57 H 52 H (15-37) U/L ALT 33 32 (12-78) U/L Alkaline Phosphatase 129 H 122 H (45-117) U/L Total Creatine Kinase 666 H 437 H (39-308) U/L CK-MB (CK-2) 3.0 2.8 (0.5-3.6) ng/mL CK-MB (CK-2) % 0.5 0.6 (0.0-4.0) % Troponin I (0.02-0.05) ng/mL Total Protein 7.1 6.9 (6.4-8.2) g/dL Albumin 3.1 L 2.9 L (3.4-5.0) g/dL Thiamine (70-180) nmol/L Vitamin B12 (193-986) pg/mL TSH (0.358-3.740) uIU/mL Urine Color (Yellw/Straw) Urine Clarity (Clear) Urine pH (5.0-8.5) Ur Specific [place] (1.002-1.035) Urine Protein (Neg-Trace) mg/dL Urine Glucose (UA) (Negative) mg/dL Urine Ketones (Negative) mg/dL Urine Occult Blood (Negative) Urine Nitrate (Negative) Urine Bilirubin (Negative) Urine Urobilinogen (Less than 2) mg/dL Ur Leukocyte Esterase (Negative) Urine RBC (0-3) /hpf Urine WBC (0-5) /hpf Urine Bacteria (None) /hpf Urine Mucus (Occasional) /lpf Micro UA Comment Urine Culture Comments Urine Opiates Screen (Neg) Ur Barbiturates Screen (Neg) Ur Amphetamines Screen (Neg) U Benzodiazepines Scrn (Neg) Urine Cocaine Screen (Neg) U Cannabinoids Screen (Neg) Serum Alcohol (0-5) mg/dL AVTAR Screen (Neg) RPR (Nonreactive) Imaging Data Radiologist's impression: Carotid Doppler Study 02/16/18 00:00 CONCLUSION: 1. Right Internal Carotid Artery: Sonographically normal. 2. Left Internal Carotid Artery: Sonographically normal. 3. Antegrade flow in both vertebral arteries. Chest X-Ray 02/16/18 15:43 CONCLUSION: No acute disease Head CT 02/16/18 15:43 CONCLUSION: Negative CT Head non contrast. . Head MRI 02/16/18 18:24 CONCLUSION: Negative exam. Discharge Plan Discharge Disposition Patient Disposition: 30 Still Patient Discharge Condition Condition: Stable Discharge Order Discharge Orders: Discharge Order (Routine); Ordered 02/19/18 Ordered By: Hailey Negron Discharge Details Anticipated Discharge Date: 02/19/18 Discharge Comment: Discharge pending lab results and neurology clearance from Dr. Vargas Diagnosis: Seizure-like activity, Elevated CK, Suicidal ideations Physicians Team ED Provider: Shima Cox ED Midlevel Provider: Chel Kolb Primary Care Provider: ROBYN, Attending Provider: Kvng Silva Other Providers: Cornell Vargas ; Avni Julian ; Hannah,Humanulysses Status ED Status: Left Department Discharge Information Discharge Date/Time: 02/16/18 23:54
[2018-02-16 16:24] LABS: Baso # (Auto) 0.1 th/mm3 (0.0-0.2); Baso % (Auto) 0.8 % (0.0-2.0); Eos # (Auto) 0.1 th/mm3 (0.0-0.4); Hemoglobin 12.5 gm/dL (13.0-17.0); Lymph % (Auto) 13.4 % (9.0-44.0); Mean Corpuscular HGB Conc 32.9 % (32.0-36.0); Mean Corpuscular Hemoglobin 30.6 pg (27.0-34.0); Mean Platelet Volume 7.3 fL (7.0-11.0); Mono # (Auto) 0.7 th/mm3 (0.0-0.9); Mono % (Auto) 9.4 % (0.0-8.0); Neut # (Auto) 5.5 th/mm3 (1.8-7.7); Neut % (Auto) 75.4 % (16.0-70.0); Platelet Count 245 th/mm3 (150-450); Red Blood Count 4.09 mil/mm3 (4.50-5.90); White Blood Count 7.3 th/mm3 (4.0-11.0)
--- NOTE | 2018-02-16 16:24 | XR ---
EXAM DATE: 02/16/2018 4:04 PM EDT AGE/SEX: 62 years / Male INDICATIONS: Short of breath. CLINICAL DATA: This is the patient's initial encounter. Patient reports that signs and symptoms have been present for 1 day and indicates a pain score of Nonresponsive. MEDICAL/SURGICAL HISTORY: Non-responsive. Non-responsive. COMPARISON: [facility] [place], CHEST 1V SINGLE AP, 01/31/2018. . FINDINGS: A single AP view of the chest demonstrates the lungs to be symmetrically aerated without evidence of mass, infiltrate or effusion. The cardiomediastinal contours are unremarkable. Osseous structures a re intact. CONCLUSION: No acute disease Electronically signed by: Danilo Su MD 02/16/2018 4:22 PM EDT
[2018-02-16 16:26] LABS: Bacteria,Urine Rare /hpf; Bilirubin,Urine Negative (Negative); Clarity,Urine Hazy (Clear); Color,Urine Yellow (Yellw/Straw); Glucose,Urine (UA) Negative (Negative); Leukocyte Esterase,Urine Negative (Negative); Mucus,Urine Few /lpf (Occasional); Nitrite,Urine Negative (Negative); Specific Gravity,Urine 1.026 (1.002-1.035)
[2018-02-16 16:28] LABS: Amphetamine Screen,Urine Neg (Neg); Barbiturate Screen,Urine Neg (Neg); Cannabinoid Screen,Urine Neg (Neg); Cocaine Screen,Urine Neg (Neg)
[2018-02-16 16:40] LABS: Opiate Screen,Urine Neg (Neg)
--- NOTE | 2018-02-16 16:47 | CT ---
EXAM DATE: 02/16/2018 4:39 PM EDT AGE/SEX: 62 years / Male INDICATIONS: Seizure. CLINICAL DATA: This is the patient's initial encounter. Patient reports that signs and symptoms have been present for 1 day and indicates a pain score of 0/10. MEDICAL/SURGICAL HISTORY: Parkinson's disease. Dementia, schizophrenia. None. RADIATION DOSE: 41.71 CTDI (mGy) COMPARISON: [facility] [place], CT HEAD W/O CONTRAST, 01/31/2018. . TECHNIQUE: CT of the head without contrast. Using automated exposure control and adjustment of the mA and/or kV according to patient size, radiation dose was kept as low as reasonably achievable to ob tain optimal diagnostic quality images. DICOM format image data is available electronically for revi ew and comparison. FINDINGS: Cerebrum: The ventricles are normal for age. No evidence of midline shift, mass lesion, hemorrhage or acute infarction. No extraaxial fluid collections are seen. Posterior Fossa: The cerebellum and brainstem are intact. The 4th ventricle is midline. The cerebe llopontine angle is unremarkable. Extracranial: The visualized portion of the orbits is intact. Skull: The calvaria is intact. No evidence of skull fracture. CONCLUSION: Negative CT Head non contrast. . Electronically signed by: Danilo Su MD 02/16/2018 4:45 PM EDT
[2018-02-16 16:51] LABS: Anion Gap 7 meq/L (5-15); Aspartate Aminotransferase 80 U/L (15-37); Blood Urea Nitrogen 21 mg/dL (7-18); Calcium 8.2 mg/dL (8.5-10.1); Carbon Dioxide 26.8 meq/L (21.0-32.0); Chloride 111 meq/L (98-107); Glomerular Filtration Rate 76 mL/min (>89); Glucose,Random 99 mg/dL (74-106); Sodium 145 meq/L (136-145)
[2018-02-16 17:00] LABS: Alanine Aminotransferase 36 U/L (12-78); Alkaline Phosphatase 117 U/L (45-117); Total Protein 7.1 g/dL (6.4-8.2)
[2018-02-16 17:20] LABS: CKMB Percent 0.2 % (0.0-4.0)
[2018-02-16] MEDS ORDERED: Sod Chloride 0.9% Inj 1,000 ML IV.SIG ONE (17:58)
[2018-02-16] MEDS ORDERED: Acetaminophen 325 MG Tablet PO PRN (19:01)
[2018-02-16] MEDS ORDERED: Bisacodyl 10 MG Supp RECTAL PRN (19:01)
--- NOTE | 2018-02-16 19:22 | P.HPIM ---
History of Present Illness Primary Care Physician: UNKNOWN History of Present Illness: This is a 62-year-old male with a PMH of Schizophrenia, Major depression, Anxiety and Dementia who was sent to the ER from intermediate for AMS and seizure like activity. Pt recently d/c'd from [facility] on 02/15/18 for AMS and management of psychosis, started on Olanzapine and titrated to 10mg qd and 15mg qhs, Diphenhydramine 25mg bid and Mirtazapine 15mg qhs. While at facility pt w/ ongoing suicidal/homicidal ideations and hallucinations, brought to ER under [place] Act. While en route, pt noted to have shaking episodes w/ possible seizure like activity. Neurology consulted, recommended further evaluation. Pt unable to provide much history. On arrival, BP 116/60, HR 88, O2 sat 95% on RA, Afebrile. Hemoglobin 12.5. Chemistry unremarkable except for dehydration, BUN 21. CPK 1661. UA negative for UTI. Urine Drug Screen negative. Alcohol negative. CT Head with no acute findings. CXR negative. - Diagnosis (1) Seizure-like activity (2) Rhabdomyolysis (3) Suicidal ideations Inpatient Certification: I certify that the inpatient services were ordered in accordance with Medicare regulations governing the order. This includes certification that hospital inpatient services are reasonable and necessary and in the case of services not specified as inpatient-only under 42 CFR 419.22(n), that they are appropriately provided as inpatient services in accordance to with the 2-midnight benchmark under 43 CFR 412.3(e) Estimated Total Length of Stay (Days): 2 Plans for Post Hospital Care: Not yet determined Review of Systems PAST FAMILY HISTORY: Unable to obtain All other systems reviewed negative except as stated in HPI [facility] - History History Provided By: Medical Record - Medical History Medical History: Medical History (Last Reviewed 02/14/18 @ 10:57 by Oz Goldsmith, PT) Dementia Hypothyroidism Parkinson disease Schizophrenia Smoker - Surgical History Surgical History: Surgical History (Last Reviewed 02/06/18 @ 11:16 by Geo Kellogg) No history of previous surgery - Family History Family History: Family History (Last Updated 02/07/18 @ 12:13 by Kvng Silva, DO) Other Family history non-contributory Family history of hypertension - Tobacco History Second Hand Smoke Exposure: No Smoking Status: Unknown if ever smoked Tobacco Type: Cigarettes - Alcohol History How Often Do You Have a Drink Containing Alcohol: Never - Substance Use History Substance History: No History of Abuse - Travel History History of Recent Travel: No - Immunization History Tetanus Immunization: Unsure Medications and Allergies Active Medications: Active Medications Acetaminophen (Tylenol) 650 mg PO Q4H PRN PRN Reason: Temp > 100.4 Al Hydroxide/Mg Hydroxide (Milk Of Magnesia Liq) 30 ml PO Q12H PRN PRN Reason: Mild Constipation Bisacodyl (Dulcolax Supp) 10 mg RECTAL DAILY PRN PRN Reason: SEVERE CONSITIPATION Sodium Chloride (Ns Inj) 1,000 mls @ 100 mls/hr IV.CONT .Q10H KAY Lactulose (Lactulose Liq) 30 ml PO DAILY PRN PRN Reason: SEVERE CONSITIPATION Lorazepam (Ativan Inj) 1 mg IV.PUSH Q5M PRN PRN Reason: SEIZURE Ondansetron HCl (Zofran Inj) 4 mg IV.PUSH Q6H PRN PRN Reason: NAUSEA OR VOMITING Senna/Docusate Sodium (Araseli-Colace) 1 tab PO BID KAY Sennosides (Senokot) 17.2 mg PO Q12H PRN PRN Reason: Moderate Constipation Sodium Chloride (Ns Flush) 2 ml IV.FLUSH BID KAY Sodium Chloride (Ns Flush) 2 ml IV.FLUSH PRN PRN PRN Reason: FLUSH AFTER USING IV ACCESS Allergies Allergy/AdvReac Type Severity Reaction Status Date / Time No Known Allergies Allergy Verified 01/31/18 18:22 Home Medications Medication Instructions Recorded Confirmed Type amlodipine [Norvasc] 5 mg PO DAILY 02/16/18 02/16/18 History diphenhydramine HCl 25 mg PO BID 02/16/18 02/16/18 History mirtazapine 15 mg PO HS 02/16/18 02/16/18 History olanzapine [Zyprexa Zydis] 15 mg PO HS 02/16/18 02/16/18 History Exam Vital signs: Vital Signs 02/16/18 15:39 02/16/18 18:06 Temperature 98.8 F Pulse Rate 88 85 Respiratory Rate 18 18 Blood Pressure 116/60 113/60 Pulse Oximetry 95 97 Intake & Output 02/16/18 02/16/18 02/17/18 06:59 18:59 06:59 Weight 81.647 kg Narrative: PE: GENERAL: Middle-aged white male in no acute distress. HEENT: PERRLA, EOMI. No scleral icterus or conjunctival pallor. No lid lag or facial droop. CARDIOVASCULAR: Regular rate and rhythm. No obvious murmurs to auscultation. No chest tenderness to palpation. RESPIRATORY: No obvious rhonchi or wheezing. Clear to auscultation. Breath sounds equal bilaterally. GASTROINTESTINAL: Abdomen soft, non-tender, nondistended. BS normal. MUSCULOSKELETAL: Extremities without clubbing, cyanosis, or edema. No obvious deformities. NEUROLOGICAL: Awake, alert. No focal neurologic deficits. Moving both upper and lower extremities spontaneously. Results - Labs CBC & Chem 7: 02/16/18 16:03 02/16/18 16:03 Labs: Short CBC 02/16/18 Range/Units 16:03 WBC 7.3 (4.0-11.0) th/mm3 Hgb 12.5 L (13.0-17.0) gm/dL Hct 38.0 L (39.0-51.0) % Plt Count 245 (150-450) th/mm3 BMP 02/16/18 16:03 Sodium 145 Potassium 4.0 Chloride 111 H Carbon Dioxide 26.8 BUN 21 H Creatinine 1.00 Calcium 8.2 L Cardiac Enzymes 02/16/18 Range/Units 16:03 Total Creatine Kinase 1661 H (39-308) U/L CK-MB (CK-2) 3.0 (0.5-3.6) ng/mL Liver Function 02/16/18 Range/Units 16:03 Total Bilirubin 0.4 (0.2-1.0) mg/dL AST 80 H (15-37) U/L ALT 36 (12-78) U/L Alkaline Phosphatase 117 (45-117) U/L Albumin 3.0 L (3.4-5.0) g/dL Urine 02/16/18 Range/Units 16:08 Urine Color Yellow (Yellw/Straw) Urine Clarity Hazy H (Clear) Urine pH 5.0 (5.0-8.5) Ur Specific [place] 1.026 (1.002-1.035) Urine Protein Negative (Neg-Trace) mg/dL Urine Glucose (UA) Negative (Negative) mg/dL - Imaging Impressions Chest X-Ray 02/16/18 15:43 CONCLUSION: No acute disease Head CT 02/16/18 15:43 CONCLUSION: Negative CT Head non contrast. . Caprini VTE Risk Assessment Caprini VTE Risk Assessment: No/Low Risk (score <= 1) Yobanirini Risk Assessment Model: Point Value = 1 Point Value = 2 Point Value = 3 Point Value = 5 Age 41-60 Minor surgery BMI > 25 kg/m2 Swollen legs Varicose veins or History of unexplained or recurrent spontaneous Oral contraceptives or hormone replacement Sepsis (< 1 month) Serious lung disease, including pneumonia (< 1 month) Abnormal pulmonary function Acute myocardial infarction Congestive heart failure (< 1 month) History of inflammatory bowel disease Medical patient at bed rest Age 61-74 Arthroscopic surgery Major open surgery (> 45 min) Laparoscopic surgery (> 45 min) Malignancy Confined to bed (> 72 hours) Immobilizing plaster cast Central venous access Age >= 75 History of VTE Family history of VTE Factor V Leiden Prothrombin [id number] Lupus anticoagulant Anticardiolipin antibodies Elevated serum homocysteine Heparin-induced thrombocytopenia Other congenital or acquired thrombophilia Stroke (< 1 month) Elective arthroplasty Hip, pelvis, or leg fracture Acute spinal cord injury (< 1 month) Prophylaxis Regimen: Total Risk Factor Score Risk Level Prophylaxis Regimen 0-1 Low Early ambulation 2 Moderate Order ONE of the following: *Sequential Compression Device (SCD) *Heparin 5000 units SQ BID 3-4 Higher Order ONE of the following medications: *Heparin 5000 units SQ TID *Enoxaparin/Lovenox 40 mg SQ daily (WT < 150 kg, CrCl > 30 mL/min) *Enoxaparin/Lovenox 30 mg SQ daily (WT < 150 kg, CrCl > 10-29 mL/min) *Enoxaparin/Lovenox 30 mg SQ BID (WT < 150 kg, CrCl > 30 mL/min) AND/OR *Sequential Compression Device (SCD) 5 or more Highest Order ONE of the following medications: *Heparin 5000 units SQ TID (Preferred with Epidurals) *Enoxaparin/Lovenox 40 mg SQ daily (WT < 150 kg, CrCl > 30 mL/min) *Enoxaparin/Lovenox 30 mg SQ daily (WT < 150 kg, CrCl > 10-29 mL/min) *Enoxaparin/Lovenox 30 mg SQ BID (WT < 150 kg, CrCl > 30 mL/min) AND *Sequential Compression Device (SCD) Assessment and Plan - Assessment (1) Seizure-like activity Code(s): R56.9 - Unspecified convulsions Status: Acute (2) Rhabdomyolysis Code(s): M62.82 - Rhabdomyolysis Status: Acute (3) Suicidal ideations Code(s): R45.851 - Suicidal ideations Status: Acute - Plan A/P: 1. Seizure: noted to have seizure like activity, concern for new onset seizure. CT Head w/ no acute findings, images reviewed. UDS negative, U/a negative. Neurology consulted, recommended further workup. Will check EEG, MRI , Carotid US, AVTAR, RPR, B12/Thiamine. Ativan prn. Seizure Precautions. 2. Rhabdomyolysis: CPK 1660, likely due to seizure activity, IVF for hydration , repeat labs for trend. U/a negative, monitor I/O. 3. Suicidal Ideation: Arrived to ER under [place] Act for ongoing suicidal/ homicidal ideation and hallucinations, Sitter, Consult Psych. 4. DVT Prophylaxis: SCD/Teds 5. Social work for d/c planning as needed 6. Case discussed w/ ER physician at length, labs/records/imaging reviewed by me.
[2018-02-16] MEDS ORDERED: Gadobutrol PF 10 MMOL/10 ML Vial (for RAD) IV.SIG ONE (20:07)
--- NOTE | 2018-02-16 20:21 | MR ---
EXAM DATE: 02/16/2018 8:05 PM EDT AGE/SEX: 62 years / Male INDICATIONS: Seizures. CLINICAL DATA: This is the patient's initial encounter. Patient reports that signs and symptoms have been present for 1 day and indicates a pain score of 9/10. MEDICAL/SURGICAL HISTORY: Seizures. None. COMPARISON: [facility], CT HEAD W/O CONTRAST, 02/16/2018. . TECHNIQUE: Multiplanar, multisequence examination of the brain was performed without and with 8 ml Ga davist (gadobutrol) contrast as a single exam dose. FINDINGS: Cerebrum: The ventricles are normal for age. No evidence of midline shift, mass lesion, hemorrhage or acute infarction. No extraaxial fluid collections are seen. The pituitary gland and suprasellar cistern are normal in configuration. White Matter: No significant signal abnormalities are seen in the white matter. Posterior Fossa: The cerebellum and brainstem are intact. The 4th ventricle is midline. The cerebel lopontine angle is unremarkable. The cerebellar tonsils are normal in position. Diffusion Imaging: No focal areas of restricted diffusion are seen. No evidence of acute infarction . Extracranial: The visualized portions of the orbits and paranasal sinuses are unremarkable. Post Contrast: No abnormal areas of parenchymal or dural enhancement. No evidence of blood-brain ba rrier breakdown. CONCLUSION: Negative exam. Electronically signed by: Sam Dumont MD 02/16/2018 8:19 PM EDT
[2018-02-16] MEDS: Sod Chloride 0.9% Inj 1,000 ML IV.CONT SCH (20:32)
[2018-02-16] MEDS: Senna/Docusate Sodium 8.6/50 MG Tablet PO SCH (20:34)
--- NOTE | 2018-02-16 21:45 | US ---
EXAM DATE: 02/16/2018 9:41 PM EDT AGE/SEX: 62 years / Male INDICATIONS: Syncope. CLINICAL DATA: This is the patient's initial encounter. Patient reports that signs and symptoms have been present for 1 day and indicates a pain score of 0/10. MEDICAL/SURGICAL HISTORY: Dementia. Hypothyroidism. Parkinson's disease. Schizophrenia. No ne. COMPARISON: No prior exams available for comparison. VELOCITY PARAMETERS: ICA/CCA Ratio: Right 0.8 , Left 0.6 ICA: Right 84 cm/sec, Left 68 cm/sec CCA: Right 104 cm/sec, Left 118 cm/sec ECA: Right 101 cm/sec, Left 87 cm/sec Vertebral: Right 66 cm/sec antegrade, Left 74 cm/sec antegrade FINDINGS: Right Carotid: No significant plaque is visualized.The waveforms are within normal limits. Left Carotid: No significant plaque is visualized. The waveforms are within normal limits. Other: None. CONCLUSION: 1. Right Internal Carotid Artery: Sonographically normal. 2. Left Internal Carotid Artery: Sonographically normal. 3. Antegrade flow in both vertebral arteries. Electronically signed by: Sam Dumont MD 02/16/2018 9:44 PM EDT
[2018-02-17] MEDS: Sod Chloride 0.9% Inj 1,000 ML IV.CONT SCH ×2 (05:17→15:34)
[2018-02-17 07:25] LABS: Albumin 3.1 g/dL (3.4-5.0); Anion Gap 6 meq/L (5-15); Blood Urea Nitrogen 16 mg/dL (7-18); Calcium 8.3 mg/dL (8.5-10.1); Carbon Dioxide 26.4 meq/L (21.0-32.0); Chloride 113 meq/L (98-107); Glomerular Filtration Rate Greater Than 89 mL/min (>89); Glucose,Random 78 mg/dL (74-106); Potassium 3.8 meq/L (3.5-5.1); Sodium 145 meq/L (136-145)
[2018-02-17 07:26] LABS: Alanine Aminotransferase 34 U/L (12-78); Aspartate Aminotransferase 73 U/L (15-37)
[2018-02-17 07:40] LABS: Alkaline Phosphatase 128 U/L (45-117); Creatine Kinase 1024 U/L (39-308); Total Protein 7.1 g/dL (6.4-8.2)
[2018-02-17 08:00] LABS: CKMB Percent 0.2 % (0.0-4.0); Creatine Kinase MB 2.1 ng/mL (0.5-3.6)
[2018-02-17] MEDS: Senna/Docusate Sodium 8.6/50 MG Tablet PO SCH ×2 (08:13→23:23)
[2018-02-17 12:36] LABS: Baso # (Auto) 0.1 th/mm3 (0.0-0.2); Baso % (Auto) 1.2 % (0.0-2.0); Eos # (Auto) 0.1 th/mm3 (0.0-0.4); Eos % (Auto) 1.9 % (0.0-4.0); Hemoglobin 12.7 gm/dL (13.0-17.0); Lymph % (Auto) 20.3 % (9.0-44.0); Mean Corpuscular HGB Conc 32.6 % (32.0-36.0); Mean Corpuscular Hemoglobin 30.5 pg (27.0-34.0); Mean Corpuscular Volume 93.5 fL (80.0-100.0); Mono # (Auto) 0.4 th/mm3 (0.0-0.9); Mono % (Auto) 7.7 % (0.0-8.0); Neut # (Auto) 3.3 th/mm3 (1.8-7.7); Neut % (Auto) 68.9 % (16.0-70.0); Platelet Count 247 th/mm3 (150-450); Red Blood Count 4.17 mil/mm3 (4.50-5.90); Red Cell Distribution Width 14.7 % (11.6-17.2); White Blood Count 4.8 th/mm3 (4.0-11.0)
--- NOTE | 2018-02-17 13:53 | P.CONPSY ---
Provisional Diagnosis Admission Date: February 16, 2018 19:01 [place].: schizophrenia History of Present Illness Service: Medicine Primary Care Provider: UNKNOWN History of Present Illness: The patient is a 62-year-old male with a Past psychiatry history of Schizophrenia, Major depression, Anxiety and Dementia, multiple psychiatry admission, s who was [facility] from [facility] for [facility] and seizure like activity. Pt recently d/c'd from [facility] on 02/15/18 for AMS and management of psychosis, started on Olanzapine and titrated to 10mg qd and 15mg qhs, Diphenhydramine 25mg bid and Mirtazapine 15mg qhs. He as seen by neurology them for tremors, recommendations were : tremors are mild, intermittent and no cogwheeling rigiditywould avoid adding dopaminergic medications as these can increase confusion and hallucinations. would hold benztropine or try to lower dose if possible as this can also contribute to hallucinations agree with psychiatry consult. Brought his time from facility pt w/ ongoing suicidal/homicidal ideations and hallucinations, brought to ER under [place] Act. While en route, pt noted to have shaking episodes w/ possible seizure like activity. Neurology consulted, recommended further evaluation. Pt unable to provide much history. On arrival, BP 116/60, HR 88, O2 sat 95% on RA, Afebrile. Hemoglobin 12.5. Chemistry unremarkable except for dehydration, BUN 21. CPK 1661. UA negative for UTI. Urine Drug Screen negative. Alcohol negative. CT Head with no acute findings. CXR negative. Consulted to psychiatry to address psychosis. There is a patient that I admitted about 2 weeks ago, he was just recently discharged from psychiatry before yesterday. He was initially admitted last time due to increased visual hallucinations and paranoia. Today the patient is selectively mute, oppositional, resistant, refusing to cooperate with the evaluation. He continuously move his hands without no purpose, was seems to be quite bizarre behavior. I have tried to engage the patient in a conversation several times, but the patient does not answer my questions. To be internally preoccupied and paranoid. [facility] - History History Provided By: Medical Record - Medical History Medical History: Medical History (Last Reviewed 02/14/18 @ 10:57 by Oz Goldsmith, PT) Dementia Hypothyroidism Parkinson disease Schizophrenia Smoker - Surgical History Surgical History: Surgical History (Last Reviewed 02/06/18 @ 11:16 by Geo Kellogg) No history of previous surgery - Family History Family History: Family History (Last Updated 02/07/18 @ 12:13 by Kvng Silva DO) Other Family history non-contributory Family history of hypertension - Tobacco History Second Hand Smoke Exposure: No Smoking Status: Unknown if ever smoked Tobacco Type: Cigarettes - Alcohol History How Often Do You Have a Drink Containing Alcohol: Unable to Obtain - Substance Use History Substance History: No History of Abuse - Travel History History of Recent Travel: No - Immunization History Tetanus Immunization: Unsure Medications and Allergies Active Medications: Active Medications Acetaminophen (Tylenol) 650 mg PO Q4H PRN PRN Reason: Temp > 100.4 Al Hydroxide/Mg Hydroxide (Milk Of Magnesia Liq) 30 ml PO Q12H PRN PRN Reason: Mild Constipation Bisacodyl (Dulcolax Supp) 10 mg RECTAL DAILY PRN PRN Reason: SEVERE CONSITIPATION Sodium Chloride (Ns Inj) 1,000 mls @ 100 mls/hr IV.CONT .Q10H [facility] Last Admin: 02/17/18 05:17 Dose: 100 mls/hr Lactulose (Lactulose Liq) 30 ml PO DAILY PRN PRN Reason: SEVERE CONSITIPATION Lorazepam (Ativan Inj) 1 mg IV.PUSH Q5M PRN PRN Reason: SEIZURE Last Admin: 02/16/18 20:13 Dose: 1 mg Olanzapine (Zyprexa Zydis Odt) 10 mg PO DAILY [facility] Ondansetron HCl (Zofran Inj) 4 mg IV.PUSH Q6H PRN PRN Reason: NAUSEA OR VOMITING Senna/Docusate Sodium (Araseli-Colace) 1 tab PO BID [facility] Last Admin: 02/17/18 08:13 Dose: 1 tab Sennosides (Senokot) 17.2 mg PO Q12H PRN PRN Reason: Moderate Constipation Sodium Chloride (Ns Flush) 2 ml IV.FLUSH BID [facility] Last Admin: 02/17/18 11:32 Dose: 2 ml Sodium Chloride (Ns Flush) 2 ml IV.FLUSH UNSCH PRN PRN Reason: FLUSH AFTER USING IV ACCESS Allergies Allergy/AdvReac Type Severity Reaction Status Date / Time No Known Allergies Allergy Verified 01/31/18 18:22 Home Medications Medication Instructions Recorded Confirmed Type amlodipine [Norvasc] 5 mg PO DAILY 02/16/18 02/16/18 History diphenhydramine HCl 25 mg PO BID 02/16/18 02/16/18 History mirtazapine 15 mg PO HS 02/16/18 02/16/18 History olanzapine [Zyprexa Zydis] 15 mg PO HS 02/16/18 02/16/18 History Exam Vital signs: Vital Signs 02/16/18 15:39 02/16/18 18:06 02/16/18 21:01 Temperature 98.8 F Pulse Rate 88 85 Respiratory Rate 18 18 16 Blood Pressure 116/60 113/60 98/65 L Pulse Oximetry 95 97 95 02/16/18 21:45 02/16/18 23:44 02/17/18 00:00 Temperature 98.1 F 98.2 F Pulse Rate 67 71 68 Respiratory Rate 16 18 16 Blood Pressure 104/56 L 133/75 98/59 L Pulse Oximetry 99 95 95 02/17/18 03:55 02/17/18 07:45 02/17/18 08:00 Temperature 98 F 98.7 F 98.7 F Pulse Rate 75 83 83 Respiratory Rate 16 18 18 Blood Pressure 117/68 138/75 138/75 Pulse Oximetry 96 93 L 93 L 02/17/18 09:00 02/17/18 12:00 Temperature 98.2 F Pulse Rate 75 87 Respiratory Rate 18 Blood Pressure 165/96 H Pulse Oximetry 96 Intake & Output 02/16/18 02/17/18 02/17/18 18:59 06:59 18:59 Intake Total 1999 Output Total 625 / 625 Balance 1375 / 1375 Weight 81.647 kg Intake: IV 1999 NS Inj 1,000 ML @ 100 mls/hr IV 1000 / 1000 .CONT .Q10H KAY Rx#:[id number] NS Inj 1,000 ML @ Wide Open IV. 1000 / 1000 SIG BOLUS ONE Rx#:[id number] Output: Urine 625 / 625 Mental Status Examination Appearance: Appropriate Consciousness: Alert Speech: Other (Selectively mute) Mood: Oppositional Affect: Irritable Delusion Type: Paranoid Suicidal Ideation: No Suicidal Plan: No Suicidal Intention: No Homicidal Ideation: No Homicidal Plan: No Homicidal Intention: No Insight: Poor Judgment: Poor Mental Status Exam Remarks: Limited because the patient is selectively mute Assessment and Plan - Assessment (1) Schizophrenia Code(s): F20.9 - Schizophrenia, unspecified Status: Acute - Plan Plan: Estimated LOS: [] days On psychiatric evaluation today the patient is selectively mute, no cooperating with a psychiatric assessment, no answering questions, as I am trying to contact with the patient, he continues to move his arm very bizarrely in which seems to be a quite psychotic behavior. There is a patient with psychiatric history of schizophrenia, multiple psychiatric hospitalizations, history of paranoia, visual hallucinations, recently admitted in [place] psychiatry, discharged 2 days ago. The patient was brought to the hospital due to paranoia , suicidal and homicidal ideation. Given patient's psychiatric history, was seems to be psychotic behavior the patient is a elevated risk of danger to self and others, he will be admitted in psychiatry for stabilization and safety. I will restart his on olanzapine 10 mg in the morning 15 mg at bedtime, Remeron 15 mg to help with sleep and mood. Transfer patient to 2600 units once medically stable. Justification for Continued Inpatient Stay: Admitted in psychiatry
--- NOTE | 2018-02-17 14:20 | MG ---
cc: Cornell Vargas MD, PhD DATE OF STUDY: 02/17/2018 TEST NUMBER: [id number] TECHNIQUE: A 17-channel EEG. DESCRIPTION: The background rhythm reveals symmetrical alpha rhythm with a frequency of 8-9 Hz, amplitude of 30 microvolts. There is the expected anterior decremental response. There were no lateralizing features identified. There are no epileptiform features identified. There is some muscle artifact present. There is some beta activity, which was of more rapid activity at about 15-20 Hz probably related to medication effect. Again, no epileptiform discharges were seen. Hyperventilation was not done. Photic stimulation resulted in a normal symmetrical driving response. INTERPRETATION: Normal electroencephalogram. Cornell Vargas MD, PhD GLENNY/ct , 01:46 PM , 01:52 PM
--- NOTE | 2018-02-17 14:27 | P.PNIM ---
Subjective Interval history: When I evaluated the patient today he had previously been responsive and talking but when I see him, after calling nursing, he is unresponsive. He has a repetitive circular motion movement of his right arm. He starting to the left. He is stiff and incoherent, not answering questions. History is not obtainable. Physical Exam Vital signs: Vital Signs 02/16/18 15:39 02/16/18 18:06 02/16/18 21:01 Temperature 98.8 F Pulse Rate 88 85 Respiratory Rate 18 16 Blood Pressure 116/60 113/60 98/65 L Pulse Oximetry 95 97 95 02/16/18 21:45 02/16/18 23:44 02/17/18 00:00 Temperature 98.1 F 98.2 F Pulse Rate 67 71 68 Respiratory Rate 16 Blood Pressure 104/56 L 133/75 98/59 L Pulse Oximetry 99 95 95 02/17/18 03:55 02/17/18 07:45 02/17/18 08:00 Temperature 98 F 98.7 F 98.7 F Pulse Rate 75 83 83 Respiratory Rate 18 Blood Pressure 117/68 138/75 138/75 Pulse Oximetry 96 93 L 93 L 02/17/18 09:00 02/17/18 12:00 Temperature 98.2 F Pulse Rate 75 87 Respiratory Rate 18 Blood Pressure 165/96 H Pulse Oximetry 96 Intake & Output 02/16/18 02/17/18 02/17/18 18:59 06:59 18:59 Intake Total 1999 Output Total 625 / 625 Balance 1375 / 1375 Weight 81.647 kg Intake: IV 1999 NS Inj 1,000 ML @ 100 mls/hr IV 1000 / 1000 .CONT .Q10H KAY Rx#:[id number] NS Inj 1,000 ML @ Wide Open IV. 1000 / 1000 SIG BOLUS ONE Rx#:[id number] Output: Urine 625 / 625 Narrative: GENERAL: NAD, A&Ox0 HEAD: Normocephalic. NECK: Supple, trachea midline. No lymphadenopathy. EYES: No scleral icterus. No injection or drainage. CARDIOVASCULAR: Regular rate and rhythm without murmurs, gallops, or rubs. RESPIRATORY: Breath sounds equal bilaterally. No accessory muscle use. GASTROINTESTINAL: Abdomen soft, non-tender, nondistended. MUSCULOSKELETAL: No cyanosis, or edema. SKIN: Warm and dry. NEURO: No focal neurological deficits. Stiffness of the body and repetitive circular movements of the right arm. Results - Labs CBC & Chem 7: 02/17/18 11:45 02/17/18 06:22 Laboratory Results - last 24 hr 02/16/18 02/16/18 02/16/18 00:00 00:00 16:03 WBC 7.3 RBC 4.09 L Hgb 12.5 L Hct 38.0 L MCV 93.0 MCH 30.6 MCHC 32.9 RDW 15.0 Plt Count 245 MPV 7.3 Neut % (Auto) 75.4 H Lymph % (Auto) 13.4 [place] % (Auto) 9.4 H Eos % (Auto) 1.0 Baso % (Auto) 0.8 Neut # (Auto) 5.5 Lymph # (Auto) 1.0 [place] # (Auto) 0.7 Eos # (Auto) 0.1 Baso # (Auto) 0.1 WBC Differential . Differential Comment Auto diff final Sodium Potassium Chloride Carbon Dioxide Anion Gap BUN Creatinine Estimated GFR Random Glucose Calcium Total Bilirubin AST ALT Alkaline Phosphatase Total Creatine Kinase CK-MB (CK-2) CK-MB (CK-2) % Troponin I 0.05 Total Protein Albumin Vitamin B12 105 L TSH Urine Color Urine Clarity Urine pH Ur Specific [place] Urine Protein Urine Glucose (UA) Urine Ketones Urine Occult Blood Urine Nitrate Urine Bilirubin Urine Urobilinogen Ur Leukocyte Esterase Urine RBC Urine WBC Urine Bacteria Urine Mucus Micro UA Comment Urine Culture Comments Urine Opiates Screen Ur Barbiturates Screen Ur Amphetamines Screen U Benzodiazepines Scrn Urine Cocaine Screen U Cannabinoids Screen Serum Alcohol RPR 02/16/18 02/16/18 02/16/18 16:03 16:03 16:08 WBC RBC Hgb Hct MCV MCH MCHC RDW Plt Count MPV Neut % (Auto) Lymph % (Auto) [place] % (Auto) Eos % (Auto) Baso % (Auto) Neut # (Auto) Lymph # (Auto) [place] # (Auto) Eos # (Auto) Baso # (Auto) WBC Differential Differential Comment Sodium 145 Potassium 4.0 Chloride 111 H Carbon Dioxide 26.8 Anion Gap 7 BUN 21 H Creatinine 1.00 Estimated GFR 76 L Random Glucose 99 Calcium 8.2 L Total Bilirubin 0.4 AST 80 H ALT 36 Alkaline Phosphatase 117 Total Creatine Kinase 1661 H CK-MB (CK-2) 3.0 CK-MB (CK-2) % 0.2 Troponin I Total Protein 7.1 Albumin 3.0 L Vitamin B12 TSH 1.880 Urine Color Urine Clarity Urine pH Ur Specific [place] Urine Protein Urine Glucose (UA) Urine Ketones Urine Occult Blood Urine Nitrate Urine Bilirubin Urine Urobilinogen Ur Leukocyte Esterase Urine RBC Urine WBC Urine Bacteria Urine Mucus Micro UA Comment Urine Culture Comments Urine Opiates Screen Neg Ur Barbiturates Screen Neg Ur Amphetamines Screen Neg U Benzodiazepines Scrn Neg Urine Cocaine Screen Neg U Cannabinoids Screen Neg Serum Alcohol Less than 3 RPR 02/16/18 02/16/18 02/17/18 16:08 18:35 06:22 WBC RBC Hgb Hct MCV MCH MCHC RDW Plt Count MPV Neut % (Auto) Lymph % (Auto) [place] % (Auto) Eos % (Auto) Baso % (Auto) Neut # (Auto) Lymph # (Auto) [place] # (Auto) Eos # (Auto) Baso # (Auto) WBC Differential Differential Comment Sodium 145 Potassium 3.8 Chloride 113 H Carbon Dioxide 26.4 Anion Gap 6 BUN 16 Creatinine 0.71 Estimated GFR Greater than 89 Random Glucose 78 Calcium 8.3 L Total Bilirubin 0.8 AST 73 H ALT 34 Alkaline Phosphatase 128 H Total Creatine Kinase 1024 H CK-MB (CK-2) 2.1 CK-MB (CK-2) % 0.2 Troponin I Total Protein 7.1 Albumin 3.1 L Vitamin B12 TSH Urine Color Yellow Urine Clarity Hazy H Urine pH 5.0 Ur Specific [place] 1.026 Urine Protein Negative Urine Glucose (UA) Negative Urine Ketones Trace Urine Occult Blood Negative Urine Nitrate Negative Urine Bilirubin Negative Urine Urobilinogen 2.0 H Ur Leukocyte Esterase Negative Urine RBC 1 Urine WBC 3 Urine Bacteria Rare H Urine Mucus Few H Micro UA Comment Culture not ind Urine Culture Comments Culture not ind Urine Opiates Screen Ur Barbiturates Screen Ur Amphetamines Screen U Benzodiazepines Scrn Urine Cocaine Screen U Cannabinoids Screen Serum Alcohol RPR Nonreactive 02/17/18 11:45 WBC 4.8 RBC 4.17 L Hgb 12.7 L Hct 39.0 MCV 93.5 MCH 30.5 MCHC 32.6 RDW 14.7 Plt Count 247 MPV 7.0 Neut % (Auto) 68.9 Lymph % (Auto) 20.3 [place] % (Auto) 7.7 Eos % (Auto) 1.9 Baso % (Auto) 1.2 Neut # (Auto) 3.3 Lymph # (Auto) 1.0 [place] # (Auto) 0.4 Eos # (Auto) 0.1 Baso # (Auto) 0.1 WBC Differential . Differential Comment Auto diff final Sodium Potassium Chloride Carbon Dioxide Anion Gap BUN Creatinine Estimated GFR Random Glucose Calcium Total Bilirubin AST ALT Alkaline Phosphatase Total Creatine Kinase CK-MB (CK-2) CK-MB (CK-2) % Troponin I Total Protein Albumin Vitamin B12 TSH Urine Color Urine Clarity Urine pH Ur Specific [place] Urine Protein Urine Glucose (UA) Urine Ketones Urine Occult Blood Urine Nitrate Urine Bilirubin Urine Urobilinogen Ur Leukocyte Esterase Urine RBC Urine WBC Urine Bacteria Urine Mucus Micro UA Comment Urine Culture Comments Urine Opiates Screen Ur Barbiturates Screen Ur Amphetamines Screen U Benzodiazepines Scrn Urine Cocaine Screen U Cannabinoids Screen Serum Alcohol RPR - Imaging Impressions Carotid Doppler Study 02/16/18 00:00 CONCLUSION: 1. Right Internal Carotid Artery: Sonographically normal. 2. Left Internal Carotid Artery: Sonographically normal. 3. Antegrade flow in both vertebral arteries. Chest X-Ray 02/16/18 15:43 CONCLUSION: No acute disease Head CT 02/16/18 15:43 CONCLUSION: Negative CT Head non contrast. . Head MRI 02/16/18 18:24 CONCLUSION: Negative exam. Assessment and Plan - Assessment (1) Seizure-like activity Code(s): R56.9 - Unspecified convulsions Status: Acute (2) Rhabdomyolysis Code(s): M62.82 - Rhabdomyolysis Status: Acute (3) Suicidal ideations Code(s): R45.851 - Suicidal ideations Status: Acute - Plan 62-year-old male admitted for seizure activities Seizure Bolus of Ativan given due to active seizures when seen EEG shows no underlying abnormality Possibility of withdrawal seizure Continue seizure precautions Neurology following Continue monitoring neurologic status Rhabdomyolysis This is likely related to recurrent seizures IV hydration Follow total CK Suicidal Ideation Status post psychiatry evaluation Psychiatry following DVT Prophylaxis SCD/Teds
[2018-02-17 15:49] LABS: Anti-Nuclear Antibody Screen Neg (Neg)
--- NOTE | 2018-02-17 21:58 | MB ---
cc: Cornell Vargas MD, PhD DATE: 02/17/2018 REASON FOR CONSULTATION: Seizure. HISTORY OF PRESENT ILLNESS: This is a 62-year-old man who has a history of schizophrenia, depression, anxiety as well as dementia, who lives at a [facility] and developed alteration in mental status. He was restarted on olanzapine for psychosis as well as mirtazapine. He developed suicidal and homicidal ideations and hallucinations and was brought to the ER under a Chavez Act. En route, he had an episode of generalized seizure activity. CPK was elevated. The patient states he did have seizures in his childhood, but none since then. He has had no additional seizures. PAST MEDICAL HISTORY: History of anxiety, depression, schizophrenia, hypothyroidism, parkinsonism, dementia. CURRENT MEDICATIONS: 1. Tylenol. 2. Dulcolax. 3. Lactulose. 4. Ativan. 5. Zyprexa. 6. Zofran. NEUROLOGIC EXAMINATION: VITAL SIGNS: Blood pressure is 109/59, pulse is 80, respiratory rate is 18, temperature is 97 degrees. HIGHER CORTICAL FUNCTION: He is alert, oriented, follows commands. Speech is fluent. CRANIAL NERVES: Diminished facial expressiveness. The extraocular movements are intact. MOTOR: He is moderately bradykinetic. He has no focal weakness. REFLEXES: Symmetric. IMAGING DATA: EEG is normal. Brain MRI is within normal limits. CT brain is normal. Carotid ultrasound within normal limits. LABORATORY DATA: White count 7300, hemoglobin 12.5, hematocrit 38%, platelet count 245,000. Sodium 145, potassium 4, chloride 111, CO2 of 26.8, BUN 21, creatinine 1, GFR 76, glucose 99, AST 80, ALT 36. CPK 1661. TSH 1.8. B12 of 105. IMPRESSION: Seizure. RECOMMENDATIONS: The patient does relate a history of seizures in childhood. Would recommend therefore starting him on Trileptal. He has a low B12 level and recommend B12 supplementation as well. Cornell Vargas MD, PhD GLENNY/kenneth , 09:28 PM , 09:34 PM
[2018-02-18] MEDS: Sod Chloride 0.9% Inj 1,000 ML IV.CONT SCH ×2 (01:43→16:01)
[2018-02-18] MEDS: OXcarbazepine 150 MG Tablet PO SCH ×2 (10:22→22:06)
[2018-02-18] MEDS: OLANZapine 10 MG ODT Tablet PO SCH (10:22)
[2018-02-18] MEDS: Senna/Docusate Sodium 8.6/50 MG Tablet PO SCH ×2 (10:23→22:06)
--- NOTE | 2018-02-18 11:51 | P.PNIM ---
Subjective Interval history: Decreased seizure activity today. Patient is alert when seen and can have some conversation though he is not oriented. He reports hallucinations. Trileptal has been added by neurology. Blood work pending for further evaluation of kinase. Physical Exam Vital signs: Vital Signs 02/17/18 12:00 02/17/18 16:00 02/17/18 19:26 Temperature 98.2 F 98.3 F 97.5 F L Pulse Rate 87 108 H 80 Respiratory Rate 18 18 18 Blood Pressure 165/96 H 121/95 H 109/59 L Pulse Oximetry 96 95 02/17/18 22:00 02/17/18 23:26 02/18/18 00:05 Temperature 98.3 F Pulse Rate 87 75 77 Respiratory Rate 18 Blood Pressure 108/55 L Pulse Oximetry 96 02/18/18 00:10 02/18/18 04:00 02/18/18 07:39 Temperature 96.8 F L 98.3 F Pulse Rate 76 87 110 H Respiratory Rate 16 14 Blood Pressure 142/75 H 225/107 H Pulse Oximetry 97 96 Intake & Output 02/17/18 02/18/18 02/18/18 18:59 06:59 18:59 Intake Total 3160 / 3160 1000 / 1000 Output Total 750 / 750 450 / 450 Balance 2410 / 2410 550 / 550 Intake: IV 1000 / 1000 1000 / 1000 NS Inj 1,000 ML @ 100 mls/hr IV 1000 / 1000 1000 / 1000 .CONT .Q10H KAY Rx#:[id number] Oral 2160 / 2160 Output: Urine 750 / 750 450 / 450 Narrative: GENERAL: NAD, A&Ox1 HEAD: Normocephalic. NECK: Supple, trachea midline. No lymphadenopathy. EYES: No scleral icterus. No injection or drainage. CARDIOVASCULAR: Regular rate and rhythm without murmurs, gallops, or rubs. RESPIRATORY: Breath sounds equal bilaterally. No accessory muscle use. GASTROINTESTINAL: Abdomen soft, non-tender, nondistended. MUSCULOSKELETAL: No cyanosis, or edema. SKIN: Warm and dry. NEURO: No focal neurological deficits. Results - Labs CBC & Chem 7: 02/17/18 11:45 02/17/18 06:22 Laboratory Results - last 24 hr 02/16/18 02/17/18 18:35 11:45 WBC 4.8 RBC 4.17 L Hgb 12.7 L Hct 39.0 MCV 93.5 MCH 30.5 MCHC 32.6 RDW 14.7 Plt Count 247 MPV 7.0 Neut % (Auto) 68.9 Lymph % (Auto) 20.3 [place] % (Auto) 7.7 Eos % (Auto) 1.9 Baso % (Auto) 1.2 Neut # (Auto) 3.3 Lymph # (Auto) 1.0 [place] # (Auto) 0.4 Eos # (Auto) 0.1 Baso # (Auto) 0.1 WBC Differential . Differential Comment Auto diff final AVTAR Screen Neg RPR Nonreactive Assessment and Plan - Assessment (1) Seizure-like activity Code(s): R56.9 - Unspecified convulsions Status: Acute (2) Rhabdomyolysis Code(s): M62.82 - Rhabdomyolysis Status: Acute (3) Suicidal ideations Code(s): R45.851 - Suicidal ideations Status: Acute - Plan 62-year-old male admitted for seizure activities Frequency of seizures decreasing, possible seizure this morning. Continue Trileptal. Continue B12. Follow-up blood work to determine degree of rhabdomyolysis that remains. Continue IV fluids. Seizure EEG shows no underlying abnormality Possibility of withdrawal seizure Continue seizure precautions Neurology following Continue monitoring neurologic status As needed Ativan for seizures Rhabdomyolysis This is likely related to recurrent seizures IV hydration Follow total CK Suicidal Ideation Status post psychiatry evaluation Psychiatry following DVT Prophylaxis SCD/Teds
[2018-02-18 12:49] LABS: Baso % (Auto) 0.6 % (0.0-2.0); Eos % (Auto) 0.6 % (0.0-4.0); Hematocrit 39.2 % (39.0-51.0); Hemoglobin 13.2 gm/dL (13.0-17.0); Lymph # (Auto) 0.9 th/mm3 (1.0-4.8); Lymph % (Auto) 13.2 % (9.0-44.0); Mean Corpuscular HGB Conc 33.6 % (32.0-36.0); Mean Corpuscular Volume 92.3 fL (80.0-100.0); Mean Platelet Volume 6.9 fL (7.0-11.0); Mono # (Auto) 0.4 th/mm3 (0.0-0.9); Mono % (Auto) 6.3 % (0.0-8.0); Neut # (Auto) 5.5 th/mm3 (1.8-7.7); Neut % (Auto) 79.3 % (16.0-70.0); Platelet Count 249 th/mm3 (150-450); Red Blood Count 4.25 mil/mm3 (4.50-5.90); Red Cell Distribution Width 14.4 % (11.6-17.2)
[2018-02-18 13:09] LABS: Albumin 3.1 g/dL (3.4-5.0); Anion Gap 10 meq/L (5-15); Aspartate Aminotransferase 57 U/L (15-37); Blood Urea Nitrogen 13 mg/dL (7-18); Calcium 8.4 mg/dL (8.5-10.1); Carbon Dioxide 24.5 meq/L (21.0-32.0); Chloride 107 meq/L (98-107); Glomerular Filtration Rate Greater Than 89 mL/min (>89); Glucose,Random 101 mg/dL (74-106); Potassium 3.8 meq/L (3.5-5.1); Sodium 141 meq/L (136-145)
[2018-02-18 13:10] LABS: Alanine Aminotransferase 33 U/L (12-78)
[2018-02-18 13:12] LABS: Alkaline Phosphatase 129 U/L (45-117); Creatine Kinase 666 U/L (39-308); Total Protein 7.1 g/dL (6.4-8.2)
[2018-02-18 13:27] LABS: CKMB Percent 0.5 % (0.0-4.0)
--- NOTE | 2018-02-19 07:51 | P.PN ---
Subjective Interval history: Follow patient with seizure. Patient seen and examined. Patient denies any acute medical complaints. He is able to hold a conversation but is not oriented. He appears comfortable. DW nursing staff, no acute issues noted. Physical Exam Vital signs: Vital Signs 02/18/18 10:00 02/18/18 11:54 02/18/18 16:00 Temperature 98.2 F Pulse Rate 84 93 H 88 Respiratory Rate 16 16 Blood Pressure 188/84 H 169/89 H Pulse Oximetry 95 95 02/18/18 19:43 02/18/18 23:48 02/19/18 03:29 Temperature 97.5 F L 98.8 F 97.6 F Pulse Rate 84 81 84 Respiratory Rate 18 18 18 Blood Pressure 139/68 110/55 L 139/76 Pulse Oximetry 94 L 95 95 02/19/18 05:57 02/19/18 07:00 Temperature 97.8 F Pulse Rate 78 Respiratory Rate 18 12 Blood Pressure 115/66 Pulse Oximetry 95 Intake & Output 02/18/18 02/19/18 02/19/18 18:59 06:59 18:59 Intake Total 1000 / 1000 Balance 1000 / 1000 Intake: IV 1000 / 1000 NS Inj 1,000 ML @ 100 mls/hr IV 1000 / 1000 .CONT .Q10H KAY Rx#:[id number] Other: Date of Last Bowel Movement 02/18/18 # Bowel Movements 1 Narrative: GENERAL: WDWN male patient, INAD. Awake and alert. Oriented x 1. SKIN: Warm and dry. HEENT: Atraumatic. Normocephalic. Pupils equal and round. No scleral icterus. No injection or drainage. No nasal bleeding or discharge. Mucous membranes pink and moist. NECK: Trachea midline. CARDIOVASCULAR: Regular rate and rhythm. RESPIRATORY: No accessory muscle use. Clear to auscultation. Breath sounds equal bilaterally. GASTROINTESTINAL: Abdomen soft, non-tender, nondistended. +BS. MUSCULOSKELETAL: Extremities without clubbing, cyanosis, or edema. No obvious deformities. NEUROLOGICAL: Awake and alert. No obvious cranial nerve deficits. Motor grossly within normal limits. No focal neurologic finding appreciate. Normal speech. PSYCHIATRIC: Calm and cooperative. Flat affect. Judgement and insight poor. Results - Labs CBC & Chem 7: 02/19/18 10:17 02/19/18 10:17 Laboratory Results - last 24 hr 02/18/18 02/18/18 11:48 11:48 WBC 7.0 RBC 4.25 L Hgb 13.2 Hct 39.2 MCV 92.3 MCH 31.0 MCHC 33.6 RDW 14.4 Plt Count 249 MPV 6.9 L Neut % (Auto) 79.3 H Lymph % (Auto) 13.2 [place] % (Auto) 6.3 Eos % (Auto) 0.6 Baso % (Auto) 0.6 Neut # (Auto) 5.5 Lymph # (Auto) 0.9 L [place] # (Auto) 0.4 Eos # (Auto) 0.0 Baso # (Auto) 0.0 WBC Differential . Differential Comment Auto diff final Sodium 141 Potassium 3.8 Chloride 107 Carbon Dioxide 24.5 Anion Gap 10 BUN 13 Creatinine 0.70 Estimated GFR Greater than 89 Random Glucose 101 Calcium 8.4 L Total Bilirubin 0.7 AST 57 H ALT 33 Alkaline Phosphatase 129 H Total Creatine Kinase 666 H CK-MB (CK-2) 3.0 CK-MB (CK-2) % 0.5 Total Protein 7.1 Albumin 3.1 L Assessment and Plan - Assessment (1) Seizure-like activity Code(s): R56.9 - Unspecified convulsions Status: Acute (2) Rhabdomyolysis Code(s): M62.82 - Rhabdomyolysis Status: Acute (3) Suicidal ideations Code(s): R45.851 - Suicidal ideations Status: Acute - Plan 62-year-old male admitted for seizure activities Seizure EEG shows no underlying abnormality Possibility of withdrawal seizure Continue seizure precautions Neurology following. Started on Trileptal, continue Continue monitoring neurologic status As needed Ativan for seizures Rhabdomyolysis This is likely related to recurrent seizures repeat CK 437 d/c IVF encourage po fluid intake Suicidal Ideation Status post psychiatry evaluation Psychiatry following, accepted to inpatient psych when medically cleared DVT Prophylaxis SCD/Teds Code Status: FULL Discussed Condition With: patient, nursing staff, Dr. Higgins Discharge Planning: Plan for discharge to inpatient psych
[2018-02-19] MEDS: Senna/Docusate Sodium 8.6/50 MG Tablet PO SCH ×2 (08:00→20:17)
[2018-02-19] MEDS: OXcarbazepine 150 MG Tablet PO SCH ×2 (08:01→20:17)
[2018-02-19] MEDS: OLANZapine 10 MG ODT Tablet PO SCH (08:01)
--- NOTE | 2018-02-19 08:29 | P.DS ---
Date of admission: 02/16/18 19:01 Primary care physician: UNKNOWN Attending physician on discharge: Katina Higgins Anticipated date of discharge: 02/19/18 Brief History from admission: This is a 62-year-old male with a PMH of Schizophrenia, Major depression, Anxiety and Dementia who was sent to the ER from sn[facility] for AMS and seizure like activity. Pt recently d/c'd from [facility] on 02/15/18 for AMS and management of psychosis, started on Olanzapine and titrated to 10mg qd and 15mg qhs, Diphenhydramine 25mg bid and Mirtazapine 15mg qhs. While at facility pt w/ ongoing suicidal/homicidal ideations and hallucinations, brought to ER under Chavez Act. While en route, pt noted to have shaking episodes w/ possible seizure like activity. Neurology consulted, recommended further evaluation. Pt unable to provide much history. On arrival, BP 116/60, HR 88, O2 sat 95% on RA, Afebrile. Hemoglobin 12.5. Chemistry unremarkable except for dehydration, BUN 21. CPK 1661. UA negative for UTI. Urine Drug Screen negative. Alcohol negative. CT Head with no acute findings. CXR negative. DS: Diagnosis - Discharge Diagnosis (1) Seizure-like activity Status: Acute (2) Rhabdomyolysis Status: Acute (3) Suicidal ideations Status: Acute DS: Summary Hospital Course: Patient was sent to the ER from a [facility] and admitted with seizure-like activity. While at the snf, patient had ongoing suicidal/homicidal ideations and hallucinations was brought in under Chavez act. CT the head did not show any acute findings. Urine drug screen was negative as was the UA. MRI brain was normal. Carotid ultrasound was within normal limits. Neurology was consulted and patient underwent EEG which was unremarkable. Per neuro, patient history of seizures in childhood and was therefore started on Trileptal. Patient found to have rhabdomyolysis suspected secondary to seizure activity which was treated with aggressive IV hydration. Patient was seen in consultation by psychiatry and was started on Zyprexa 10 mg in the morning and 50 mg at bedtime and Remeron 15 mg to help with sleep and mood. He was accepted for inpatient psychiatry admission once medically cleared. Patient improved clinically and was discharged to inpatient psychiatry. - Time Spent with Patient Total time spent providing and/or coordinating discharge services: Greater than 30 minutes - Quality: VTE Deep Vein Thrombosis/Pulmonary Embolism Present on Admission: No Exam Vital signs: Vital Signs 02/18/18 10:00 02/18/18 11:54 02/18/18 16:00 Temperature 98.2 F Pulse Rate 84 93 H 88 Respiratory Rate 16 16 Blood Pressure 188/84 H 169/89 H Pulse Oximetry 95 95 02/18/18 19:43 02/18/18 23:48 02/19/18 03:29 Temperature 97.5 F L 98.8 F 97.6 F Pulse Rate 84 81 84 Respiratory Rate 18 18 18 Blood Pressure 139/68 110/55 L 139/76 Pulse Oximetry 94 L 95 95 02/19/18 05:57 02/19/18 07:00 Temperature 97.8 F Pulse Rate 78 Respiratory Rate 18 12 Blood Pressure 115/66 Pulse Oximetry 95 Intake & Output 02/18/18 02/19/18 02/19/18 18:59 06:59 18:59 Intake Total 1000 / 1000 240 / 240 Balance 1000 / 1000 240 / 240 Intake: IV 1000 / 1000 NS Inj 1,000 ML @ 100 mls/hr IV 1000 / 1000 .CONT .Q10H KAY Rx#:[id number] Oral 240 / 240 Other: Date of Last Bowel Movement 02/18/18 02/19/18 # Bowel Movements 1 Narrative: GENERAL: WDWN male patient, INAD. Awake and alert. Oriented x 1. SKIN: Warm and dry. HEENT: Atraumatic. Normocephalic. Pupils equal and round. No scleral icterus. No injection or drainage. No nasal bleeding or discharge. Mucous membranes pink and moist. NECK: Trachea midline. CARDIOVASCULAR: Regular rate and rhythm. RESPIRATORY: No accessory muscle use. Clear to auscultation. Breath sounds equal bilaterally. GASTROINTESTINAL: Abdomen soft, non-tender, nondistended. +BS. MUSCULOSKELETAL: Extremities without clubbing, cyanosis, or edema. No obvious deformities. NEUROLOGICAL: Awake and alert. No obvious cranial nerve deficits. Motor grossly within normal limits. No focal neurologic finding appreciate. Normal speech. PSYCHIATRIC: Calm and cooperative. Flat affect. Judgement and insight poor. Results Procedures completed during hospitalization: None Labs on day of discharge: Labs from last 24 hours 02/18/18 02/18/18 11:48 11:48 WBC 7.0 RBC 4.25 L Hgb 13.2 Hct 39.2 MCV 92.3 MCH 31.0 MCHC 33.6 RDW 14.4 Plt Count 249 MPV 6.9 L Neut % (Auto) 79.3 H Lymph % (Auto) 13.2 [place] % (Auto) 6.3 Eos % (Auto) 0.6 Baso % (Auto) 0.6 Neut # (Auto) 5.5 Lymph # (Auto) 0.9 L [place] # (Auto) 0.4 Eos # (Auto) 0.0 Baso # (Auto) 0.0 WBC Differential . Differential Comment Auto diff final Sodium 141 Potassium 3.8 Chloride 107 Carbon Dioxide 24.5 Anion Gap 10 BUN 13 Creatinine 0.70 Estimated GFR Greater than 89 Random Glucose 101 Calcium 8.4 L Total Bilirubin 0.7 AST 57 H ALT 33 Alkaline Phosphatase 129 H Total Creatine Kinase 666 H CK-MB (CK-2) 3.0 CK-MB (CK-2) % 0.5 Total Protein 7.1 Albumin 3.1 L - Impressions ITS Impressions Carotid Doppler Study 02/16/18 00:00 CONCLUSION: 1. Right Internal Carotid Artery: Sonographically normal. 2. Left Internal Carotid Artery: Sonographically normal. 3. Antegrade flow in both vertebral arteries. Chest X-Ray 02/16/18 15:43 CONCLUSION: No acute disease Head CT 02/16/18 15:43 CONCLUSION: Negative CT Head non contrast. . Head MRI 02/16/18 18:24 CONCLUSION: Negative exam. Discharge Plan - Discharge Disposition Patient Disposition: 67 [facility] To [facility] - Discharge Condition Condition: Stable - Discharge Order Discharge Orders: Discharge Order (Routine); Ordered 02/19/18 Ordered By: Hailey Negron - Discharge Details Anticipated Discharge Date: 02/19/18 Discharge Comment: Discharge pending lab results and neurology clearance from Dr. Vargas - Physicians Team Primary Care Provider: UNKNOWN, Attending Provider: Katina Higgins Other Providers: Cornell Vargas MD, PhD ; Avni Julian MD ; Hannah Young
[2018-02-19] MEDS ORDERED: Levothyroxine 100 MCG Tablet PO SCH (09:00)
[2018-02-19 11:15] LABS: Baso % (Auto) 0.8 % (0.0-2.0); Eos # (Auto) 0.1 th/mm3 (0.0-0.4); Eos % (Auto) 2.1 % (0.0-4.0); Hemoglobin 13.3 gm/dL (13.0-17.0); Lymph # (Auto) 0.8 th/mm3 (1.0-4.8); Lymph % (Auto) 16.4 % (9.0-44.0); Mean Corpuscular HGB Conc 33.4 % (32.0-36.0); Mean Corpuscular Hemoglobin 31.1 pg (27.0-34.0); Mean Corpuscular Volume 93.3 fL (80.0-100.0); Mean Platelet Volume 6.9 fL (7.0-11.0); Mono # (Auto) 0.3 th/mm3 (0.0-0.9); Mono % (Auto) 6.9 % (0.0-8.0); Neut # (Auto) 3.6 th/mm3 (1.8-7.7); Neut % (Auto) 73.8 % (16.0-70.0); Platelet Count 244 th/mm3 (150-450); Red Blood Count 4.28 mil/mm3 (4.50-5.90); Red Cell Distribution Width 14.7 % (11.6-17.2); White Blood Count 4.8 th/mm3 (4.0-11.0)
[2018-02-19 11:48] LABS: Albumin 2.9 g/dL (3.4-5.0); Anion Gap 7 meq/L (5-15); Aspartate Aminotransferase 52 U/L (15-37); Blood Urea Nitrogen 13 mg/dL (7-18); Carbon Dioxide 26.1 meq/L (21.0-32.0); Chloride 106 meq/L (98-107); Glomerular Filtration Rate 83 mL/min (>89); Glucose,Random 140 mg/dL (74-106); Potassium 3.6 meq/L (3.5-5.1); Sodium 139 meq/L (136-145)
[2018-02-19 11:52] LABS: Alanine Aminotransferase 32 U/L (12-78); Alkaline Phosphatase 122 U/L (45-117); Creatine Kinase 437 U/L (39-308); Total Protein 6.9 g/dL (6.4-8.2)
[2018-02-19 12:13] LABS: CKMB Percent 0.6 % (0.0-4.0); Creatine Kinase MB 2.8 ng/mL (0.5-3.6)
== END 2018-02-19 20:57 ==
LOC: NEPD 15:22 → NEDA 15:22 → OBSVTOIN 18:36 → NEPGCP 22:56 → N05 02-19 05:35
PROVIDERS: ADMIT Hospitalist; ATTEND Hospitalist

== ENCOUNTER 2018-02-19 20:10 | Inpatient (IN) ==
[2018-02-19] MEDS ORDERED: Acetaminophen 325 MG Tablet PO PRN (21:21)
[2018-02-19 21:42] VITALS: O2SAT 98
[2018-02-19] MEDS: OXcarbazepine 150 MG Tablet PO SCH (22:48)
[2018-02-20 05:19] VITALS: BP 121/53; PULSE 82; RESP 17; TEMP 98.3
[2018-02-20] MEDS ORDERED: OLANZapine 10 MG ODT Tablet PO SCH (09:00)
[2018-02-20] MEDS ORDERED: amLODIPine 5 MG Tablet PO SCH (09:00)
[2018-02-20] MEDS: OXcarbazepine 150 MG Tablet PO SCH (09:50)
--- NOTE | 2018-02-20 12:42 | CT ---
EXAM DATE: 02/20/2018 12:32 PM EDT AGE/SEX: 63 years / Male INDICATIONS: Unresponsive seizing CLINICAL DATA: This is the patient's initial encounter. Patient reports that signs and symptoms have been present for 1 day and indicates a pain score of Nonresponsive. MEDICAL/SURGICAL HISTORY: Non-responsive. Non-responsive. RADIATION DOSE: 40.57 CTDI (mGy) [place] [facility] [place]. . TECHNIQUE: CT of the head without contrast. Using automated exposure control and adjustment of the mA and/or kV according to patient size, radiation dose was kept as low as reasonably achievable to ob tain optimal diagnostic quality images. DICOM format image data is available electronically for revi ew and comparison. FINDINGS: Cerebrum: The ventricles are normal for age. No evidence of midline shift, mass lesion, hemorrhage or acute infarction. No extraaxial fluid collections are seen. Posterior Fossa: The cerebellum and brainstem are intact. The 4th ventricle is midline. The cerebe llopontine angle is unremarkable. Extracranial: The visualized portion of the orbits is intact. Skull: The calvaria is intact. No evidence of skull fracture. CONCLUSION: Negative noncontrast head CT. Report was called by [Dr. Jimenez to Dr. Flores office at 12:35 PM] Electronically signed by: Danilo Jimenez MD 02/20/2018 12:41 PM EDT
[2018-02-20 12:48] LABS: Baso % (Auto) 0.4 % (0.0-2.0); Eos # (Auto) 0.2 th/mm3 (0.0-0.4); Eos % (Auto) 1.8 % (0.0-4.0); Hematocrit 45.8 % (39.0-51.0); Hemoglobin 14.8 gm/dL (13.0-17.0); Lymph % (Auto) 22.6 % (9.0-44.0); Mean Corpuscular HGB Conc 32.3 % (32.0-36.0); Mean Corpuscular Hemoglobin 30.5 pg (27.0-34.0); Mean Corpuscular Volume 94.3 fL (80.0-100.0); Mean Platelet Volume 7.3 fL (7.0-11.0); Mono # (Auto) 0.7 th/mm3 (0.0-0.9); Mono % (Auto) 7.9 % (0.0-8.0); Neut # (Auto) 5.8 th/mm3 (1.8-7.7); Neut % (Auto) 67.3 % (16.0-70.0); Platelet Count 329 th/mm3 (150-450); Red Blood Count 4.86 mil/mm3 (4.50-5.90); Red Cell Distribution Width 15.1 % (11.6-17.2); White Blood Count 8.7 th/mm3 (4.0-11.0)
[2018-02-20 12:58] LABS: Activated Partial Thrombo Time 26.5 sec (24.3-30.1); Prothrombin Time 10.6 sec (9.8-11.6)
--- NOTE | 2018-02-20 13:01 | CT ---
EXAM DATE: 02/20/2018 12:52 PM EDT AGE/SEX: 63 years / Male INDICATIONS: Seizure unresponsive CLINICAL DATA: This is the patient's initial encounter. Patient reports that signs and symptoms have been present for 1 day and indicates a pain score of 10/10. MEDICAL/SURGICAL HISTORY: Non-responsive. Non-responsive. RADIATION DOSE: 28.58 CTDI (mGy) ; Combined studies COMPARISON: [facility] [place], [place] HEAD W/O CONTRAST, 02/20/2018. . TECHNIQUE: Volumetric scanning was performed using a multi-row detector CT scanner during bolus infu alyssa of 92 ml Visipaque 320 (iodixanol) nonionic water-soluble contrast as a cumulative dose for mul tiple exams. The data was post processed with a variety of visualization algorithms including full volume maximum intensity projection, multi-planar sliding thin slab reformation, curved planar reform ation, and surface rendering techniques. Using automated exposure control and adjustment of the mA a nd/or kV according to patient size, radiation dose was kept as low as reasonably achievable to obtain optimal diagnostic quality images. DICOM format image data is available electronically for review a nd comparison. FINDINGS: There is excellent visualization of the major intracranial arteries out to the second-order branch ve ssels. There is no evidence for aneurysm, vessel truncation or stenosis, and no evidence for vascula r malformation. Origin of the right posterior cerebral artery is CONCLUSION: No acute zuni of Yusuf vascular findings Electronically signed by: Danilo Su MD 02/20/2018 12:59 PM EDT
[2018-02-20 13:18] LABS: Alanine Aminotransferase 44 U/L (12-78); Albumin 3.8 g/dL (3.4-5.0); Alkaline Phosphatase 154 U/L (45-117); Anion Gap 19 meq/L (5-15); Aspartate Aminotransferase 55 U/L (15-37); Blood Urea Nitrogen 20 mg/dL (7-18); Calcium 9.3 mg/dL (8.5-10.1); Carbon Dioxide 15.9 meq/L (21.0-32.0); Chloride 106 meq/L (98-107); Glomerular Filtration Rate 48 mL/min (>89); Glucose,Random 149 mg/dL (74-106); Potassium 4.3 meq/L (3.5-5.1); Sodium 141 meq/L (136-145); Total Protein 8.7 g/dL (6.4-8.2)
--- NOTE | 2018-02-20 13:26 | CT ---
EXAM DATE: 02/20/2018 1:13 PM EDT AGE/SEX: 63 years / Male INDICATIONS: Unresponsive seizures CLINICAL DATA: This is the patient's initial encounter. Patient reports that signs and symptoms have been present for 1 day and indicates a pain score of Nonresponsive. MEDICAL/SURGICAL HISTORY: Dementia. Parkinson's disease. sohizophrenia None. RADIATION DOSE: 28.58 CTDI (mGy) ; Combined studies COMPARISON: No prior exams available for comparison. TECHNIQUE: Volumetric scanning was performed using a multirow detector CT scanner during bolus infus ion of 92 ml Visipaque 320 (iodixanol) nonionic water-soluble contrast as a cumulative dose for mult iple exams. The data was postprocessed with a variety of visualization algorithms including full-vo lume maximum intensity projection, multiplanar sliding thin-slab reformation, curved-planar reformati on, and surface-rendering techniques. Using automated exposure control and adjustment of the mA and/ or kV according to patient size, radiation dose was kept as low as reasonably achievable to obtain op timal diagnostic quality images. DICOM format image data is available electronically for review and comparison. Percent stenosis is calculated using the diameter of the stenotic region over the diameter of the nor mal distal internal carotid artery. FINDINGS: Aortic Arch: There is a three-vessel origin of the great vessels from the aorta. No evidence of ost ial narrowing Right Carotid: The common carotid artery is intact. The carotid bulb has a normal configuration wit hout ulceration or narrowing. The internal carotid artery lumen is smooth without stenosis. The ext ernal carotid artery is intact. Left Carotid: The common carotid artery is intact. The carotid bulb has a normal configuration with out ulceration or narrowing. The internal carotid artery lumen is smooth without stenosis. The exte rnal carotid artery is intact. Vertebrals: The vertebral arteries have a symmetric diameter. No stenotic lesions are seen. General Findings: Lung apices are clear. Thyroid is unremarkable by CT. No significant adenopathy. CONCLUSION: 1. Negative CTA Carotid. No flow limiting stenosis or dissection. Electronically signed by: Kwame Hall MD 02/20/2018 1:25 PM EDT
--- NOTE | 2018-02-20 17:25 | P.HPPSY ---
Provisional Diagnosis Admission Date: February 19, 2018 20:52 [place].: Schizophrenia Competence Certification of Person's Competence To Provide Express and Informed Consent I have personally examined Yoav Logan, a person being served at [facility] on, February 20, 2018 1706. Express and informed consent means consent voluntarily given in writing, by a competent person, after sufficient explanation and disclosure of the subject matter involved to enable the person to make a knowing and willful decision without any element of force, fraud, deceit, duress, or other form of constraint or coercion. This person is 18 years of age or older, is not now known to be incompetent to consent to treatment with a guardian advocate, and does not have a health care surrogate or proxy currently making medical treatment decisions. I have found this person to be one of the following: [] Competent to provide express and informed consent, as defined above, for voluntary admission to this facility and is competent to provide express and informed consent for treatment. He/she has the consistent capacity to make well reasoned, willful, and knowing decisions concerning his or her medical or mental health treatment. The person fully and consistently understands the purpose of the admission for examination/placement and is fully capable of personally exercising all rights assured under [place]xxx] Incompetent to provide express and informed consent to voluntary admission , and this is incompetent to provide express and informed consent to treatment. The person must be transferred to involuntary status and a petition for a guardian advocate filed with the Circuit Court. [] Refusing to provide express and informed consent to voluntary admission but is competent to provide express and informed consent for treatment. The person must be discharged or transferred to involuntary status. Form shall be completed within 24 hours of a person's arrival at the receiving facility and filed in the clinical record of each person: 1. Admitted on a voluntary basis 2. Permitted to provide express and informed consent to his/her own treatment 3. Allowed to transfer from involuntary to voluntary status 4. Prior to permitting a person to consent to his or her own treatment after having been previously found incompetent to consent to treatment. History of Present Illness Capacity: Lacks capacity History of Present Illness: Patient is a 62-year-old man, domiciled that [facility] assisted living [facility], recently discharged from inpatient psychiatry unit to [facility] and rehab, with a past psychiatric history of schizophrenia and dementia, with previous psychiatric admissions, with a past medical history significant for hypothyroidism who was initially brought to the ED under Chavez act due to ongoing suicidal homicidal ideations which patient was initially admitted to the medical's service for possible seizure-like activity and while on the medical service psychiatry was consulted for evaluation and was subsequently admitted to the inpatient psychiatry unit for further evaluation and management psychosis. Recent psychiatry consult by Dr. Julian noted: The patient is a 62-year-old male with a Past psychiatry history of Schizophrenia, Major depression, Anxiety and Dementia, multiple psychiatry admission, s who was sent to the ER from [facility] for AMS and seizure like activity. Pt recently d/c'd from [facility] on 02/15/18 for AMS and management of psychosis, started on Olanzapine and titrated to 10mg qd and 15mg qhs, Diphenhydramine 25mg bid and Mirtazapine 15mg qhs. He as seen by neurology them for tremors, recommendations were : tremors are mild, intermittent and no cogwheeling rigiditywould avoid adding dopaminergic medications as these can increase confusion and hallucinations. would hold benztropine or try to lower dose if possible as this can also contribute to hallucinations agree with psychiatry consult. Brought his time from facility pt w/ ongoing suicidal/ homicidal ideations and hallucinations, brought to ER under Chavez Act. While en route, pt noted to have shaking episodes w/ possible seizure like activity. Neurology consulted, recommended further evaluation. Pt unable to provide much history. On arrival, BP 116/60, HR 88, O2 sat 95% on RA, Afebrile. Hemoglobin 12.5. Chemistry unremarkable except for dehydration, BUN 21. CPK 1661. UA negative for UTI. Urine Drug Screen negative. Alcohol negative. CT Head with no acute findings. CXR negative. Consulted to psychiatry to address psychosis. There is a patient that I admitted about 2 weeks ago, he was just recently discharged from psychiatry before yesterday. He was initially admitted last time due to increased visual hallucinations and paranoia. Today the patient is selectively mute, oppositional, resistant, refusing to cooperate with the evaluation. He continuously move his hands without no purpose, was seems to be quite bizarre behavior. I have tried to engage the patient in a conversation several times, but the patient does not answer my questions. To be internally preoccupied and paranoid. Patient during medical admission was started on Trileptal 150 mg p.o. twice daily for seizure disorder, and managed for rhabdomyolysis, recently discharged from the medical service and transferred to the inpatient psychiatry unit for further psychiatric evaluation and management. Patient was found lying hospital bed during interview noted to be calm, cooperative. Patient was then noted to be in acute distress during interview, stated that he is feeling "okay " stating that he was previously at [facility] but did not elaborate on reasons why he was readmitted back to the hospital. Patient states he is eating and drinking well, no difficulty with bowel movement. Patient stated his mood has been "good" denying any suicidal homicidal ideations, denying any perceptual disturbances or delusions at this time. Patient states that it is birthday today and he looks forward to seeing his sister for visitation later today. Patient later was noted to be walking with his walker on the unit and had a return back to his room which behavioral tech noted patient having seizure -like activity and upon evaluation was. To be having another seizure which patient was given Ativan 2 mg IM 1 and concern for possible strokelike symptoms had a stroke alert activated which patient was discharged from the psychiatry service to medical ICU for further evaluation and medical management. Communication with [facility] hospitalist Dr. Perez and neurologist Dr. Khan was established which coordination with staff have patient transferred to the ICU for further evaluation and management. Patient was discharged to the medical service and transferred. - Inpatient Certification I certify that the inpatient services were ordered in accordance with Medicare regulations governing the order. This includes certification that hospital inpatient services are reasonable and necessary and in the case of services not specified as inpatient-only under 42 CFR 419.22(n), that they are appropriately provided as inpatient services in accordance to with the 2-midnight benchmark under 43 CFR 412.3(e) I certify that inpatient psychiatric hospital services are medically necessary. Evaluation and treatment and/or diagnostic testing are expected to improve the patient's condition. The patient needs on a daily basis, active treatment furnished directly by or requiring the supervision of inpatient psychiatric facility personnel. Estimated Total Length of Stay (Days): 7 Plans for Post Hospital Care: Not yet determined Review of Systems All other systems reviewed negative except as stated in HPI PMFSH - History History Provided By: Patient, Medical Record - Medical History Medical History: Medical History (Last Reviewed 02/19/18 @ 09:48 by Pascual Hussein) Dementia Hypothyroidism Parkinson disease Schizophrenia Smoker - Surgical History Surgical History: Surgical History (Last Reviewed 02/19/18 @ 09:48 by Pascual Hussein) No history of previous surgery - Family History Family History: Family History (Last Updated 02/07/18 @ 12:13 by Kvng Silva DO) Other Family history non-contributory Family history of hypertension - Tobacco History Second Hand Smoke Exposure: No Tobacco Use In Past 30 Days: No Smoking Status: Never smoker Tobacco Type: Cigarettes - Alcohol History How Often Do You Have a Drink Containing Alcohol: Never - Substance Use History Substance History: No History of Abuse - Travel History History of Recent Travel: No Recent Travel in the [place] Within the Last 8 Weeks: No Recent Travel Out of the Country Within the Last 8 Weeks: No - Immunization History Hx Influenza Vaccine This Season: No Quality Measures - Psychiatric History Psychological trauma history: Unable to assess due to assess at this time Violence risk to others in the last 6 months: Low Violence risk to self in the last 6 months: Low - Substance Abuse History Drug or alcohol use in the past 12 months: Denies - Patient Strengths Patient's strengths (minimum of 2): Verbal and communicative Medications and Allergies Allergies Allergy/AdvReac Type Severity Reaction Status Date / Time No Known Allergies Allergy Verified 01/31/18 18:22 Home Medications Medication Instructions Recorded Confirmed Type amlodipine [Norvasc] 5 mg PO DAILY 02/16/18 02/19/18 History mirtazapine 15 mg PO HS 02/16/18 02/19/18 History olanzapine [Zyprexa Zydis] 15 mg PO HS 02/16/18 02/19/18 History Results - Labs CBC & Chem 7: 02/20/18 12:10 02/20/18 12:10 Labs: Laboratory Results - last 24 hr 02/20/18 02/20/18 02/20/18 11:53 12:10 12:10 WBC 8.7 RBC 4.86 Hgb 14.8 POC Hgb (Calc) 15.0 Hct 45.8 POC Hct 44.0 MCV 94.3 MCH 30.5 MCHC 32.3 RDW 15.1 Plt Count 329 D MPV 7.3 Neut % (Auto) 67.3 Lymph % (Auto) 22.6 [place] % (Auto) 7.9 Eos % (Auto) 1.8 Baso % (Auto) 0.4 Neut # (Auto) 5.8 Lymph # (Auto) 2.0 [place] # (Auto) 0.7 Eos # (Auto) 0.2 Baso # (Auto) 0.0 WBC Differential . Differential Comment Auto diff final PT INR APTT POC Sodium 142 Sodium 141 POC Potassium 4.4 Potassium 4.3 POC Chloride 107 Chloride 106 Carbon Dioxide 15.9 L D Anion Gap 19 H POC BUN 19 BUN 20 H Creatinine 1.50 H POC Creatinine 1.1 Estimated GFR 48 L POC Glucose 195 H 152 H Random Glucose 149 H Calcium 9.3 D Total Bilirubin 0.7 AST 55 H ALT 44 Alkaline Phosphatase 154 H Total Protein 8.7 H D Albumin 3.8 D 02/20/18 12:10 WBC RBC Hgb POC Hgb (Calc) Hct POC Hct MCV MCH MCHC RDW Plt Count MPV Neut % (Auto) Lymph % (Auto) [place] % (Auto) Eos % (Auto) Baso % (Auto) Neut # (Auto) Lymph # (Auto) [place] # (Auto) Eos # (Auto) Baso # (Auto) WBC Differential Differential Comment PT 10.6 INR 1.0 APTT 26.5 POC Sodium Sodium POC Potassium Potassium POC Chloride Chloride Carbon Dioxide Anion Gap POC BUN BUN Creatinine POC Creatinine Estimated GFR POC Glucose Random Glucose Calcium Total Bilirubin AST ALT Alkaline Phosphatase Total Protein Albumin - Imaging Impressions Head CTA 02/20/18 12:20 CONCLUSION: No acute samish of Yusuf vascular findings Head CT 02/20/18 12:21 CONCLUSION: Negative noncontrast head CT. Report was called by [Dr. Jimenez to Dr. Flores office at 12:35 PM] Neck CTA 02/20/18 12:21 CONCLUSION: 1. Negative CTA Carotid. No flow limiting stenosis or dissection. Exam Vital signs: Vital Signs 02/19/18 21:09 02/20/18 05:18 02/20/18 12:27 Temperature 97.9 F 98.3 F Pulse Rate 98 H 82 Respiratory Rate 16 17 Blood Pressure 109/59 L 121/53 L Pulse Oximetry 98 98 98 02/20/18 12:28 Temperature Pulse Rate Respiratory Rate Blood Pressure Pulse Oximetry 98 Intake & Output 02/19/18 02/20/18 02/20/18 18:59 06:59 18:59 Weight 71.6 kg Other: Weight On Admission 71.6 kg Narrative: Patient initially during interview was not noted to be acute distress, with some right upper extremity mild tremor, no signs of EPS or psychomotor agitation or retardation. Mental Status Examination Appearance: Appropriate, Disheveled (Slightly) Consciousness: Alert Orientation: Person, Place, Date/Time Motor Activity: Abnormal gait (Utilizing walker for ambulation) Speech: Hesitant, Slow Language: Other (Echolalia at times) Fund of Knowledge: Poor Attention and Concentration: Inadequate Memory: Impaired Mood: Other Affect: Blunt Thought Process & Associations: Other ([place]) Thought Content: Appropriate Hallucination Type: None Delusion Type: None Suicidal Ideation: No Suicidal Plan: No Suicidal Intention: No Homicidal Ideation: No Homicidal Plan: No Homicidal Intention: No Insight: Poor Judgment: Poor Assessment and Plan - Assessment (1) Schizophrenia Code(s): F20.9 - Schizophrenia, unspecified Status: Acute - Plan Plan: Estimated LOS: [] days Patient is a 63-year-old man, history of schizophrenia, dementia, parkinsonism, recently diagnosed seizures and managed recently on the medical service for rhabdomyolysis and seizure which patient was admitted to the inpatient psychiatry unit for further evaluation and management of reported suicidal homicidal ideations and hallucinations. Patient upon initial interview denied any suicidal homicidal ideations nor any hallucinations. Patient was admitted initially under involuntary hospitalization with sister acting as health care surrogate and guardian advocate which patient's sister had consented to treatment and restarting of his psychotropic medications. Patient later had witnessed seizure which hospitalist was consulted and neurology as well as due to suspicion of stroke-like symptoms which patient was transferred to the ICU and readmitted to the medical service for further evaluation and management. Patient discharged and transfered to ICU for further medical management. Justification for Continued Inpatient Stay: At risk of further decompensation a lower level care. Discharge Planning: Patient discharged and transferred to the medical service. Request Healthcare Surrogate/Guardian Advocate?: Yes
[2018-02-20] MEDS ORDERED: Mirtazapine 15 MG Tablet PO SCH (21:00)
[2018-02-20] MEDS ORDERED: OLANZapine 15 MG ODT Tablet PO SCH (21:00)
[2018-02-20] MEDS ORDERED: OXcarbazepine 150 MG Tablet PO SCH (21:00)
== END 2018-02-20 15:09 | disposition short-term general hospital (02) ==
LOC: H260 20:52 → N03 02-20 13:00 → H260 02-20 13:02
PROVIDERS: ADMIT Psychiatry & Neurology Psychiatry; ATTEND Psychiatry & Neurology Psychiatry

== ENCOUNTER 2018-02-20 12:28 | Inpatient (IN) ==
--- NOTE | 2018-02-20 12:40 | P.CONPSY ---
Provisional Diagnosis Admission Date: February 20, 2018 [place] Schizophrenia History of Present Illness Service: Psychiatry Primary Care Provider: UNKNOWN History of Present Illness: The patient is a 62-year-old male with a Past psychiatry history of Schizophrenia, Major depression, Anxiety and Dementia, multiple psychiatry admission, s who was sent to the ER from snf for AMS and seizure like activity. Pt recently d/c'd from [facility] on 02/15/18 for AMS and management of psychosis, started on Olanzapine and titrated to 10mg qd and 15mg qhs, Diphenhydramine 25mg bid and Mirtazapine 15mg qhs. He as seen by neurology them for tremors, recommendations were : tremors are mild, intermittent and no cogwheeling rigiditywould avoid adding dopaminergic medications as these can increase confusion and hallucinations. would hold benztropine or try to lower dose if possible as this can also contribute to hallucinations agree with psychiatry consult. Brought his time from facility pt w/ ongoing suicidal/homicidal ideations and hallucinations, brought to ER under [place]. Consulted to psychiatry for second opinion. He was initially admitted last time due to increased visual hallucinations and paranoia. Today the patient is selectively mute, oppositional, resistant, refusing to cooperate with the evaluation. As I was to speak with the patient he started to have seizure-like movement, a [facility] was called. [facility] - History History Provided By: Patient, Medical Record - Medical History Medical History: Medical History (Last Reviewed 02/19/18 @ 09:48 by Pascual Hussein) Dementia Hypothyroidism Parkinson disease Schizophrenia Smoker - Surgical History Surgical History: Surgical History (Last Reviewed 02/19/18 @ 09:48 by Pascual Hussein) No history of previous surgery - Family History Family History: Family History (Last Updated 02/07/18 @ 12:13 by Kvng Silva DO) Other Family history non-contributory Family history of hypertension - Tobacco History Second Hand Smoke Exposure: No Smoking Status: Never smoker Tobacco Type: Cigarettes - Alcohol History How Often Do You Have a Drink Containing Alcohol: Never - Substance Use History Substance History: No History of Abuse - Travel History History of Recent Travel: No Medications and Allergies Allergies Allergy/AdvReac Type Severity Reaction Status Date / Time No Known Allergies Allergy Verified 01/31/18 18:22 Home Medications Medication Instructions Recorded Confirmed Type amlodipine [Norvasc] 5 mg PO DAILY 02/16/18 02/19/18 History mirtazapine 15 mg PO HS 02/16/18 02/19/18 History olanzapine [Zyprexa Zydis] 15 mg PO HS 02/16/18 02/19/18 History Mental Status Examination Appearance: Appropriate Consciousness: Lethargic Orientation: Person Speech: Hesitant Fund of Knowledge: Inadequate Memory: Impaired Mood: Oppositional Affect: Irritable, Blunt Suicidal Ideation: No Suicidal Plan: No Suicidal Intention: No Homicidal Ideation: No Homicidal Plan: No Homicidal Intention: No Insight: Poor Judgment: Poor Assessment and Plan - Plan Plan: Estimated LOS: [] days I have seen and examined this patient, reviewed documentation, I agree and concur with Dr. Flores assessment and plan. consult appreciated Justification for Continued Inpatient Stay: Continue the process of admission.
[2018-02-20] MEDS ORDERED: Sodium Chlor 0.9% Inj 500 ML IV.SIG ONE (14:01)
--- NOTE | 2018-02-20 14:37 | P.HP ---
History of Present Illness Service: [facility] Primary Care Physician: UNKNOWN Chief Complaint: Seizure History of Present Illness: Patient is a 63 yo Male with past medical history of dementia, hypothyroidism, Parkinson disease, schizophrenia, seizure disorder who initially came into the hospital from a [facility] for altered mental status and seizure-like activity. CT the head did not show any acute findings. Urine drug screen was negative as was the UA. MRI brain was normal. Carotid ultrasound was within normal limits. Neurology, Dr. Vargas was consulted and patient underwent EEG which was unremarkable. Patient was started on Trileptal as per neuro. He was also found with rhabdomyolysis secondary to possibly seizure activity and was aggressively hydrated. He was transferred to inpatient psychiatry unit for further evaluation of his other psychiatric condition. He was in psychiatry today and the nurses called for patient to have seizure- like activity. Patient was seen when [facility] has been called and that the patient was suspected for possible strokelike activity. Patient during that time appears post-ictal. Not following commands or responding to any questions. He was given 2 mg of Ativan. He was taken to CT scan. Dr. Khan has been called by psychiatrist Dr. Flores regarding patient's condition. Spoke with Dr. Khan, transferred to critical care unit for closer monitoring. EEG, stat labs, CT of the head, CTA has been ordered. Patient was seen and examined in critical care unit. Patient was sleeping, snoring, easily arousable to verbal and tactile stimuli. Able to tell his name , able to tell that he is at [place], states that he is in the emergency room, he knows where to [facility], the state, states that it is his birthday today, which is true. Patient is able to follow commands move all extremities no unilateral weakness noted. geothermal field technician in the room arranging for patient's EEG. Patient denies any pain or discomfort, unaware what had happened prior. Inpatient Certification: I certify that the inpatient services were ordered in accordance with Medicare regulations governing the order. This includes certification that hospital inpatient services are reasonable and necessary and in the case of services not specified as inpatient-only under 42 CFR 419.22(n), that they are appropriately provided as inpatient services in accordance to with the 2-midnight benchmark under 43 CFR 412.3(e) Estimated Total Length of Stay (Days): 3 Plans for Post Hospital Care: Not yet determined Review of Systems Denies pain or discomfort. Unreliable historian, post seizure activity. [facility] [place] - History History Provided By: Patient, Medical Record - Medical History Medical History: Medical History (Last Reviewed 02/19/18 @ 09:48 by Pascual Hussein) Dementia Hypothyroidism Parkinson disease Schizophrenia Smoker - Surgical History Surgical History: Surgical History (Last Reviewed 02/19/18 @ 09:48 by Pascual Hussein) No history of previous surgery - Family History Family History: Family History (Last Updated 02/07/18 @ 12:13 by Kvng Silva DO) Other Family history non-contributory Family history of hypertension - Tobacco History Second Hand Smoke Exposure: No Smoking Status: Never smoker Tobacco Type: Cigarettes - Alcohol History How Often Do You Have a Drink Containing Alcohol: Never - Substance Use History Substance History: No History of Abuse - Travel History History of Recent Travel: No Medications and Allergies Active Medications: Active Medications Amlodipine Besylate (Norvasc) 5 mg PO DAILY KAY Sodium Chloride (Ns Inj) 500 mls @ 0 mls/hr IV.SIG BOLUS ONE Stop: 02/20/18 14:02 Lorazepam (Ativan Inj) 2 mg IV.PUSH Q10M PRN PRN Reason: SEE LABEL COMMENTS Allergies Allergy/AdvReac Type Severity Reaction Status Date / Time No Known Allergies Allergy Verified 01/31/18 18:22 Home Medications Medication Instructions Recorded Confirmed Type amlodipine [Norvasc] 5 mg PO DAILY 02/16/18 02/19/18 History mirtazapine 15 mg PO HS 02/16/18 02/19/18 History olanzapine [Zyprexa Zydis] 15 mg PO HS 02/16/18 02/19/18 History Exam Narrative: GENERAL: This is a well-nourished, well-developed patient, in no apparent distress. SKIN: Warm and dry. HEENT: Normocephalic. Pupils equal round and reactive. Nose without bleeding. Airway patent. NECK: Trachea midline. Supple. CARDIOVASCULAR: Regular rate and rhythm without murmurs, gallops, or rubs. RESPIRATORY: Clear to auscultation. Breath sounds equal bilaterally. No wheezes , rales, or rhonchi. GASTROINTESTINAL: Abdomen soft, non-tender, nondistended. Bowel Sounds normoactive x4. MUSCULOSKELETAL: Extremities without clubbing, cyanosis, or edema. NEUROLOGICAL: Awake and alert. Oriented to time, city, states, knows he is in the hospital, person. Moves all extremities. Normal speech. Caprini VTE Risk Assessment Caprini VTE Risk Assessment: Moderate/High Risk (score >= 2) Caprini Risk Assessment Model: Point Value = 1 Point Value = 2 Point Value = 3 Point Value = 5 Age 41-60 Minor surgery BMI > 25 kg/m2 Swollen legs Varicose veins or History of unexplained or recurrent spontaneous Oral contraceptives or hormone replacement Sepsis (< 1 month) Serious lung disease, including pneumonia (< 1 month) Abnormal pulmonary function Acute myocardial infarction Congestive heart failure (< 1 month) History of inflammatory bowel disease Medical patient at bed rest Age 61-74 Arthroscopic surgery Major open surgery (> 45 min) Laparoscopic surgery (> 45 min) Malignancy Confined to bed (> 72 hours) Immobilizing plaster cast Central venous access Age >= 75 History of VTE Family history of VTE Factor V Leiden Prothrombin [id number] Lupus anticoagulant Anticardiolipin antibodies Elevated serum homocysteine Heparin-induced thrombocytopenia Other congenital or acquired thrombophilia Stroke (< 1 month) Elective arthroplasty Hip, pelvis, or leg fracture Acute spinal cord injury (< 1 month) Prophylaxis Regimen: Total Risk Factor Score Risk Level Prophylaxis Regimen 0-1 Low Early ambulation 2 Moderate Order ONE of the following: *Sequential Compression Device (SCD) *Heparin 5000 units SQ BID 3-4 Higher Order ONE of the following medications: *Heparin 5000 units SQ TID *Enoxaparin/Lovenox 40 mg SQ daily (WT < 150 kg, CrCl > 30 mL/min) *Enoxaparin/Lovenox 30 mg SQ daily (WT < 150 kg, CrCl > 10-29 mL/min) *Enoxaparin/Lovenox 30 mg SQ BID (WT < 150 kg, CrCl > 30 mL/min) AND/OR *Sequential Compression Device (SCD) 5 or more Highest Order ONE of the following medications: *Heparin 5000 units SQ TID (Preferred with Epidurals) *Enoxaparin/Lovenox 40 mg SQ daily (WT < 150 kg, CrCl > 30 mL/min) *Enoxaparin/Lovenox 30 mg SQ daily (WT < 150 kg, CrCl > 10-29 mL/min) *Enoxaparin/Lovenox 30 mg SQ BID (WT < 150 kg, CrCl > 30 mL/min) AND *Sequential Compression Device (SCD) Assessment and Plan - Plan Patient is a 63 yo Male with past medical history of dementia, hypothyroidism, Parkinson disease, schizophrenia, seizure disorder who [facility] a [facility] for altered mental status and seizure-like activity. No acute findings with diagnostic exams. Transfered to inpatient psych for further evaluation of his psychiatric condition. He had another seizure-like activity in the psychiatry unit. [facility] was called. Seizure -Epilepsy when he was young -Previous results CT the head did not show any acute findings. Urine drug screen was negative as was the UA. MRI brain was normal. Carotid ultrasound was within normal limits. Neurology, Dr. Vargas was consulted and patient underwent EEG which was unremarkable. Patient was started on Trileptal as per neuro. -02/20/18 CT negative -02/20/18 Head CTA no acute te-moak of Yusuf vascular findings -02/20/18 Neck CTA negative CTA carotid. No flow-limiting stenosis or dissection. -Dr. Khan has been informed and aware of patient status. States that needs to be transferred to critical care unit for closer monitoring. He got the report that the patient's blood pressure has been elevated to the 200s. Current BP in the ICU low 100s. Patient was very sleepy secondary to Ativan administration -Ativan as needed for seizure -Check labs, NPO for now, EEG -Monitor neuro status. Monitor vital signs. -Seizure precaution -Trileptal BID Suicidal ideation, depression -Consulted psychiatry team to continue to follow patient. DVT prop SCDs Code Status: Full code Discussed Condition With: Patient, nursing Discharge Planning: Plan to DC back to inpatient psychiatry unit when clinically improved.
[2018-02-20] MEDS: Valproate Inj 500 MG in Sodium Chlor 0.9% Inj 100 ML IV.SIG SCH ×2 (18:03→22:30)
--- NOTE | 2018-02-20 18:49 | MB ---
cc: Keshav Khan MD DATE: 02/20/2018 HISTORY OF PRESENT ILLNESS: The patient is a 63-year-old man who, in fact was seen by Dr. Vargas on 02/01/2018. History of schizophrenia since his 20s, came in with increased tremor mental status change. He takes Haldol for his tremors with increased hallucinations, poor historian. Tremors come and go. At that time, he was on Cogentin 2 mg p.o. b.i.d. and Haldol 100 mg q.4 weeks IM; Synthroid, mirtazapine, and Zyprexa 20 a day. He was somnolent, knew the month, but not the year, knew the president. He had a right hand and leg resting tremor intermittently, was not following all commands well. Speech was slow and hypophonic. CT of the brain was negative. Chest x-ray, ammonia are normal. He did not think there was any cogwheel rigidity. Actually, was seen by Dr. Ospina. EEG was performed that was read as normal. Carotid ultrasound was done that was negative. He was ambulated and discharged to psychiatry. He was down there today, had anxiety, dementia, schizophrenia, and major depression. Today, he had a witnessed seizure. I was told that he had been started on Trileptal [address] Vargas, however, I do not see where that is in the chart. Nevertheless, he had a witnessed seizure today and then a stroke alert was called after the seizures. They thought maybe he had a little bit of a left facial droop, which had resolved. Evidently, he was started on Trileptal at one point, although I do not see it in the chart as being actually one of his medications. I think that is probably an erroneous factor. His blood pressure was high, over 200 systolic. After the seizure, he was diaphoretic and transferred to the ICU. Also in my note, the patient was seen by Dr. Vargas HPI 02/17/2018. He had some suicidal or homicidal ideations brought to the ER, [place]avez Acted, and had a grand mal seizure. CPK was elevated. He had seizures in his childhood. He recommended to start him on Trileptal and B12 supplementation. At that time when he saw Dr. Vargas, he was mildly bradykinetic, but alert and oriented. He has actually seen by neuro twice, on 02/01 and also on 02/17. CURRENT MEDICATIONS: He is on Norvasc and p.r.n. Ativan. PHYSICAL EXAMINATION: VITAL SIGNS: Blood pressure now 110 systolic. NECK: There were no carotid bruits. HEART: Regular rate and rhythm. I did not detect a murmur. NEUROLOGIC: He was very sleepy, but he can awaken and follow some commands, then he falls back to sleep. He is snoring even when he is somewhat awake. He has a snoring-type sound with respirations. His visual foster are full. He stuck his tongue out. There is no definite left-sided droop. His face is a little bit droopy on both sides of the corners of his mouth, and he moves it symmetrically. He had normal strength in upper and lower extremities bilaterally. DTRs are trace throughout. Toes are downgoing bilaterally. There is no ankle clonus. He has spasticity in bilateral upper extremities. No cogwheel rigidity; however. LABS: CBC was normal today. Coags were normal. Basic metabolic profile normal. Creatinine 1.5, BUN 20, glucose 152. LFTs essentially normal. CPK 437, ammonia 27, LDL cholesterol has been normal. B12 was low at 105 on 02/16/2018. Thiamin normal, TSH normal. UA on 02/16 was negative. Urine drug screens were negative. AVTAR has been negative. RPR has been normal. He had a CTA of the head and neck today that was negative. CAT scan of the brain was read as negative. He had an MRI of the brain done on 02/16, which was normal, with and without contrast. FLAIR images negative. No tumor is noted. No hemorrhage is noted. No acute infarcts noted. IMPRESSION AND PLAN: Another seizure. I have increased his Trileptal to 600 b.i.d., get him on B12 shots. We will have Dr. Vargas follow up. The patient was called as a stroke alert, but actually with a seizure at onset. He did not get any TPA and I suspect this was a seizure and not a stroke. We will check an MRI, repeat, but I think it is unlikely to be positive. I note after the episode, his O2 saturations were in the 70s. We will check an ABG on him. Also a thiamine level. ADDENDUM In addition to the above dictation, he is unable to take good p.o. right now, so we are going to switch him from Trileptal to Depakote 500 b.i.d. IV, which may also work as a mood stabilizer for him and to should cover the seizures. MD LACI Fernandez/elan/reinier , 04:19 PM , 04:33 PM
--- NOTE | 2018-02-20 20:10 | MR ---
EXAM DATE: 02/20/2018 8:03 PM EDT AGE/SEX: 63 years / Male INDICATIONS: CVA. CLINICAL DATA: This is the patient's initial encounter. Patient reports that signs and symptoms have been present for 1 day and indicates a pain score of 3/10. MEDICAL/SURGICAL HISTORY: Seizures. None. COMPARISON: [facility], MR HEAD W & W/O CONTRAST, 02/16/2018. . TECHNIQUE: Multiplanar, multisequence examination of the brain was performed without contrast. FINDINGS: Cerebrum: The ventricles are normal for age. No evidence of midline shift, mass lesion, hemorrhage or acute infarction. No extraaxial fluid collections are seen. The pituitary gland and suprasellar cistern are normal in configuration. White Matter: No significant signal abnormalities are seen in the white matter. Posterior Fossa: The cerebellum and brainstem are intact. The 4th ventricle is midline. The cerebel lopontine angle is unremarkable. The cerebellar tonsils are normal in position. Diffusion Imaging: No focal areas of restricted diffusion are seen. No evidence of acute infarction . Extracranial: The visualized portions of the orbits and paranasal sinuses are unremarkable. CONCLUSION: 1. Negative noncontrast MRI of the brain. No evidence of acute infarction. Electronically signed by: Rocky Coffey MD 02/20/2018 8:09 PM EDT
--- NOTE | 2018-02-20 21:39 | MG ---
cc: Jhonathan Gutiérrez MD DATE OF STUDY: 1955 ELECTROENCEPHALOGRAM RECORD NUMBER: [id number] DESCRIPTION: Mixed frequency EEG with alpha, beta, theta frequencies 10-40 microvolts. Noted to be snoring. Was given Ativan apparently prior to the EEG. Increased fast frequencies noted. Beta frequencies, spindles, K complexes, good arousals asleep. Limited driving photic stimulation. Single EKG showing sinus rhythm. INTERPRETATION: Stage II sleep with EEG variability reactivity during arousals excessive beta activity. Clinical correlation. Jhonathan Gutiérrez MD MG/ , 09:07 PM , 09:12 PM
[2018-02-21 04:22] LABS: Baso # (Auto) 0.1 th/mm3 (0.0-0.2); Baso % (Auto) 1.1 % (0.0-2.0); Eos # (Auto) 0.2 th/mm3 (0.0-0.4); Eos % (Auto) 2.5 % (0.0-4.0); Hematocrit 37.1 % (39.0-51.0); Hemoglobin 12.6 gm/dL (13.0-17.0); Lymph # (Auto) 1.3 th/mm3 (1.0-4.8); Lymph % (Auto) 21.1 % (9.0-44.0); Mean Corpuscular HGB Conc 33.8 % (32.0-36.0); Mean Corpuscular Hemoglobin 31.2 pg (27.0-34.0); Mean Corpuscular Volume 92.3 fL (80.0-100.0); Mean Platelet Volume 6.9 fL (7.0-11.0); Mono # (Auto) 0.5 th/mm3 (0.0-0.9); Neut % (Auto) 67.3 % (16.0-70.0); Platelet Count 230 th/mm3 (150-450); Red Blood Count 4.02 mil/mm3 (4.50-5.90); Red Cell Distribution Width 14.9 % (11.6-17.2)
[2018-02-21 04:48] LABS: Alanine Aminotransferase 35 U/L (12-78); Albumin 2.9 g/dL (3.4-5.0); Alkaline Phosphatase 123 U/L (45-117); Anion Gap 7 meq/L (5-15); Aspartate Aminotransferase 45 U/L (15-37); Blood Urea Nitrogen 16 mg/dL (7-18); Carbon Dioxide 27.8 meq/L (21.0-32.0); Chloride 109 meq/L (98-107); Glomerular Filtration Rate Greater Than 89 mL/min (>89); Glucose,Random 73 mg/dL (74-106); Potassium 3.8 meq/L (3.5-5.1); Sodium 144 meq/L (136-145); Total Protein 6.7 g/dL (6.4-8.2); Valproic Acid 51 mcg/mL (50-100)
[2018-02-21] MEDS: Valproate Inj 500 MG in Sodium Chlor 0.9% Inj 100 ML IV.SIG SCH ×2 (05:24→13:37)
[2018-02-21] MEDS: amLODIPine 5 MG Tablet PO SCH (09:21)
--- NOTE | 2018-02-21 12:50 | P.PN ---
Subjective Interval history: no acute evebnts overnight seen with staff nurses at bedside per staff nurse- ate breakfast and luch 100% continent of urine patient awkae and alert, oriented x 3, no complains of pain, or headaches or dizziness speech slow but clear moves all extremities equally- but in a slow motion fashion patient states baseline he is ambulatory and uses a walker Physical Exam Vital signs: Vital Signs 02/20/18 14:00 02/20/18 16:00 02/20/18 23:01 Temperature 98.5 F 98.2 F Pulse Rate 80 76 Respiratory Rate 13 16 Blood Pressure 101/56 L 98/57 L Pulse Oximetry 98 100 96 02/21/18 00:00 02/21/18 04:00 02/21/18 08:00 Temperature 98.2 F 97.9 F 97.7 F Pulse Rate 86 84 91 H Respiratory Rate 18 18 18 Blood Pressure 114/56 L 116/58 L 150/66 H Pulse Oximetry 99 98 98 02/21/18 08:25 02/21/18 12:00 Temperature 97.8 F Pulse Rate 81 Respiratory Rate 16 Blood Pressure 139/84 Pulse Oximetry 98 97 Intake & Output 02/20/18 02/21/18 02/21/18 18:59 06:59 18:59 Intake Total 815 / 815 Output Total 350 / 350 Balance 465 / 465 Weight 71.3 kg Intake: IV 815 / 815 NS Inj 500 ML @ Wide Open IV. 500 / 500 SIG BOLUS ONE Rx#:[id number] Depacon Inj 500 MG In NS Inj 315 / 315 100 ML @ 105 mls/hr IV.SIG Q8HR KAY Rx#:[id number] Output: Urine Amount (Catheter) 350 / 350 Condom 350 / 350 Other: # Incontinent Voids 2 # Urine Diapers 1 Weight On Admission 66.8 kg Narrative: awake and alert, speech slow but clear 0s sats 99 % - at 2 LNC anicteric neck supple lungs- no rales or wheezes regular rhythm abdomen soft, nontender extremities no edema CN grossly intact moves all extrmities spontaenously - Urinary Catheter Management Condom Cath placed during this visit: no Results - Labs CBC & Chem 7: 02/21/18 03:12 02/21/18 03:12 Laboratory Results - last 24 hr 08/21/18 08/21/18 03:12 03:12 WBC 6.0 RBC 4.02 L Hgb 12.6 L D Hct 37.1 L MCV 92.3 MCH 31.2 MCHC 33.8 RDW 14.9 Plt Count 230 D MPV 6.9 L Neut % (Auto) 67.3 Lymph % (Auto) 21.1 Kay % (Auto) 8.0 Eos % (Auto) 2.5 Baso % (Auto) 1.1 Neut # (Auto) 4.0 Lymph # (Auto) 1.3 Kay # (Auto) 0.5 Eos # (Auto) 0.2 Baso # (Auto) 0.1 WBC Differential . Differential Comment Auto diff final Sodium 144 Potassium 3.8 Chloride 109 H Carbon Dioxide 27.8 D Anion Gap 7 BUN 16 Creatinine 0.80 Estimated GFR Greater than 89 Random Glucose 73 L Calcium 8.0 L D Total Bilirubin 0.7 AST 45 H ALT 35 Alkaline Phosphatase 123 H Total Protein 6.7 D Albumin 2.9 L D Valproic Acid 51 - Imaging Impressions Head MRI 02/20/18 00:00 CONCLUSION: 1. Negative noncontrast MRI of the brain. No evidence of acute infarction. Assessment and Plan - Plan 63 years old Patient is a 63 yo Male with past medical history of dementia, hypothyroidism, Parkinson disease, schizophrenia, seizure disorder who initially came into the hospital from a senior living for altered mental status and seizure-like activity. No acute findings with diagnostic exams. Transfered to inpatient psych for further evaluation of his psychiatric condition. He had another seizure-like activity in the psychiatry unit. HALICAT was called. 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 Urine drug screen was negative as was the UA. MRI brain was normal. Carotid ultrasound was within normal limits. Neurology, Dr. Vargas was consulted and patient underwent EEG which was unremarkable. Patient was started on Trileptal as per neuro. -02/20/18 CT negative -02/20/18 Head CTA no acute [place] vascular findings -02/20/18 Neck CTA negative CTA carotid. No flow-limiting stenosis or dissection. -Ativan as needed for seizure -Monitor neuro status. Monitor vital signs. -Seizure precaution -Trileptal BID -02/20- started on Depakote 500 mg q 8-IV - Dr. Vargas will be ff MELQUI[place]- creatinine improved. good po. good urine output Suicidal ideation, depression -Psychiatry consult-known to Dr. Flores patient transferred from there for ff up - per family - d/w staff nurse - concerned with Zyprexa- had same SZ event when placed on this in the past Transfer to [facility] floor Consult psychiatry service and possible transfer to [facility] psychiatry floor PT eval and treat- Out of bed to chair for all meals per patient up and ambulatory with a walker baseline DVT prop SCDs
[2018-02-21] MEDS: Divalproex 125 MG Sprinkles Capsule PO SCH (22:31)
[2018-02-22] MEDS: Divalproex 125 MG Sprinkles Capsule PO SCH ×4 (01:46→17:44)
[2018-02-22] MEDS: amLODIPine 5 MG Tablet PO SCH (09:28)
--- NOTE | 2018-02-22 12:39 | P.PNPSY ---
Subjective Remarks: The patient was seen today for psychiatric reevaluation. Chart was reviewed. Case was discussed with primary medical team. My psychiatric evaluation the patient is calm, superficially cooperative, a little bit irritable. The patient reports that he feels better, denies any pain and distress. He reports that he has been sad because he has been thinking about his medical conditions and the medications that he has to take. The patient reports that he has been taking his medications and follow recommendations, even though he is mad because he has been asking the same question over and over. When I try to ask the patient about perceptual disturbances, the patient decided to become selectively mute and not cooperating more. She seems to be a little bit internally preoccupied and paranoid. The nurse reports that patient's sister, Jenny, has been trying to reach psychiatry to express the concern that in her opinion olanzapine could be responsible for medical symptoms of the patient. I tried to reach her at [phone], but she did not answer the phone. Mental Status Examination Appearance: Appropriate Consciousness: Lethargic Orientation: x4 Speech: Hesitant Fund of Knowledge: Inadequate Memory: Impaired Mood: Oppositional Affect: Irritable, Blunt Thought Content: Bizarre thinking Hallucination Type: None Suicidal Ideation: No Suicidal Plan: No Suicidal Intention: No Homicidal Ideation: No Homicidal Plan: No Homicidal Intention: No Insight: Poor Judgment: Poor Assessment and Plan - Assessment (1) Schizophrenia Code(s): F20.9 - Schizophrenia, unspecified Status: Acute - Plan Plan: Patient will be admitted back in psychiatry was medically stable. Patient continues to be paranoid and disorganized. Hold olanzapine and reconsider another antipsychotic once admitted. Continue Depakote 500 mg twice daily. Justification for Continued Inpatient Stay: Transferred back to psychiatry was medically stable.
--- NOTE | 2018-02-22 13:44 | P.PNIM ---
Subjective Interval history: Patient is a 63 yo Male with past medical history of dementia, hypothyroidism, Parkinson disease, schizophrenia, seizure disorder who initially came into the hospital from a detention for altered mental status and seizure-like activity. CT the head did not show any acute findings. Urine drug screen was negative as was the UA. MRI brain was normal. Carotid ultrasound was within normal limits. Neurology, Dr. Vargas was consulted and patient underwent EEG which was unremarkable. Patient was started on Trileptal as per neuro. He was also found with rhabdomyolysis secondary to possibly seizure activity and was aggressively hydrated. He was transferred to inpatient psychiatry unit for further evaluation of his other psychiatric condition. He was in psychiatry today and the nurses called for patient to have seizure- like activity. Patient was seen when SHARON has been called and that the patient was suspected for possible strokelike activity. Patient during that time appears post-ictal. Not following commands or responding to any questions. He was given 2 mg of Ativan. He was taken to CT scan. Dr. Khan has been called by psychiatrist Dr. Flores regarding patient's condition. Spoke with Dr. Khan, transferred to critical care unit for closer monitoring. EEG, stat labs, CT of the head, CTA has been ordered. Patient was seen and examined in critical care unit. Patient was sleeping, snoring, easily arousable to verbal and tactile stimuli. Able to tell his name , able to tell that he is at [place], states that he is in the emergency room, he knows where to [facility] S, the state, states that it is his birthday today, which is true. Patient is able to follow commands move all extremities no unilateral weakness noted. zyglo technician in the room arranging for patient's EEG. Patient denies any pain or discomfort, unaware what had happened prior. 8-21 no acute events overnight seen with staff nurses at bedside per staff nurse- ate breakfast and lunch 100% continent of urine patient awake and alert, oriented x 3, no complains of pain, or headaches or dizziness speech slow but clear moves all extremities equally- but in a slow motion fashion patient states baseline he is ambulatory and uses a walker 8-22 PATIENT IS STABLE MEDICALLY CAN BE TRANSFERRED TO MED PSYCHIATRY TODAY DW FAMILY THEY ARE IN AGREEMENT DC TO IN PSYCHIATRY NO NEW COMPLAINTS EATING WELL Physical Exam Vital signs: Vital Signs 02/21/18 16:00 02/21/18 20:00 02/21/18 20:05 Temperature 98.2 F 98.7 F Pulse Rate 81 85 Respiratory Rate 19 Blood Pressure 149/70 H 132/61 Pulse Oximetry 97 97 94 L 02/22/18 00:00 02/22/18 04:00 02/22/18 08:00 Temperature 97.8 F 97.8 F 98.2 F Pulse Rate 63 73 88 Respiratory Rate 17 17 17 Blood Pressure 138/73 136/74 Pulse Oximetry 95 97 96 02/22/18 12:00 Temperature 97.7 F Pulse Rate 94 H Respiratory Rate 18 Blood Pressure 139/67 Pulse Oximetry 96 Intake & Output 02/21/18 02/22/18 02/22/18 18:59 06:59 18:59 Intake Total 1355 / 1355 420 / 420 Output Total 375 / 375 500 / 500 Balance 980 / 980 -80 / -80 Weight 71.1 kg Intake: IV 105 / 105 Depacon Inj 500 MG In NS Inj 105 / 105 100 ML @ 105 mls/hr IV.SIG Q8HR KAY Rx#:[id number] Oral 1250 / 1250 420 / 420 Output: Urine 375 / 375 500 / 500 Stool 0 / 0 Other: Date of Last Bowel Movement 02/20/18 02/20/18 Narrative: awake and alert, speech slow but clear 02 sats 99 % - at 2 LNC anicteric neck supple lungs- no rales or wheezes regular rhythm abdomen soft, nontender extremities no edema CN grossly intact moves all extremities spontaneously VERY CONCERNED WITH HIS LUNCH - Urinary Catheter Management Condom Cath placed during this visit: no Results - Labs CBC & Chem 7: 02/21/18 03:12 02/21/18 03:12 Laboratory Results - last 24 hr 02/22/18 04:20 Valproic Acid 62 - Imaging Head MRI 02/20/18 00:00 CONCLUSION: 1. Negative noncontrast MRI of the brain. No evidence of acute infarction. - Procedures NONE Assessment and Plan - Plan Patient is a 63 yo Male with past medical history of dementia, hypothyroidism, Parkinson disease, schizophrenia, seizure disorder who initially came into the hospital from a detention for altered mental status and seizure-like activity. No acute findings with diagnostic exams. Transfered to inpatient psych for further evaluation of his psychiatric condition. He had another seizure-like activity in the psychiatry unit. KENTRELLT was called. 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 Urine drug screen was negative as was the UA. MRI brain was normal. Carotid ultrasound was within normal limits. Neurology, Dr. Vargas was consulted and patient underwent EEG which was unremarkable. Patient was started on Trileptal as per neuro. -02/20/18 CT negative -02/20/18 Head CTA no acute [place] vascular findings -02/20/18 Neck CTA negative CTA carotid. No flow-limiting stenosis or dissection. -Ativan as needed for seizure -Monitor neuro status. Monitor vital signs. -Seizure precaution -Trileptal BID -02/20- started on Depakote 500 mg q 8-IV - Dr. Vargas will be ff [place]- creatinine improved. good po. good urine output Suicidal ideation, depression -Psychiatry consult-known to Dr. Flores patient transferred from there for ff up - per family - d/w staff nurse - concerned with Zyprexa- had same SZ event when placed on this in the past Transfer to med PSYCHIATRY FLOOR Consult psychiatry service and possible transfer to med psychiatry floor PT eval and treat- Out of bed to chair for all meals per patient up and ambulatory with a walker baseline DVT prop SCDs LOOKS GOOD FOR INPT PSYCHIATRY DC TO INPATIENT PSYCHIATRY Code Status: FULL CODE Discussed Condition With: RN AND CM AND FAMILY Discharge Planning: DC TO INPT MED PSYCHIATRY WHEN BED AVAILABLE
--- NOTE | 2018-02-22 13:48 | P.DS ---
Date of admission: 02/20/18 15:11 Primary care physician: UNKNOWN Attending physician on discharge: Kvng Silva Anticipated date of discharge: 02/22/18 Brief History from admission: Patient is a 63 yo Male with past medical history of dementia, hypothyroidism, Parkinson disease, schizophrenia, seizure disorder who initially came into the hospital from a [place] [facility] for altered mental status and seizure-like activity. CT the head did not show any acute findings. Urine drug screen was negative as was the UA. MRI brain was normal. Carotid ultrasound was within normal limits. Neurology, Dr. Vargas was consulted and patient underwent EEG which was unremarkable. Patient was started on Trileptal as per neuro. He was also found with rhabdomyolysis secondary to possibly seizure activity and was aggressively hydrated. He was transferred to inpatient psychiatry unit for further evaluation of his other psychiatric condition. He was in psychiatry today and the nurses called for patient to have seizure- like activity. Patient was seen when HALICAT has been called and that the patient was suspected for possible strokelike activity. Patient during that time appears post-ictal. Not following commands or responding to any questions. He was given 2 mg of Ativan. He was taken to CT scan. Dr. Khan has been called by psychiatrist Dr. Flores regarding patient's condition. Spoke with Dr. Khan, transferred to critical care unit for closer monitoring. EEG, stat labs, CT of the head, CTA has been ordered. Patient was seen and examined in critical care unit. Patient was sleeping, snoring, easily arousable to verbal and tactile stimuli. Able to tell his name , able to tell that he is at [place], states that he is in the emergency room, he knows where to city [place], the state, states that it is his birthday today, which is true. Patient is able to follow commands move all extremities no unilateral weakness noted. security alarm technician in the room arranging for patient's EEG. Patient denies any pain or discomfort, unaware what had happened prior. DS: Diagnosis - Discharge Diagnosis (1) Schizophrenia Status: Chronic (2) Seizure-like activity Status: Acute (3) Suicidal ideations Status: Acute DS: Summary Hospital Course: Patient is a 63 yo Male with past medical history of dementia, hypothyroidism, Parkinson disease, schizophrenia, seizure disorder who initially came into the hospital from a [place] [facility] for altered mental status and seizure-like activity. CT the head did not show any acute findings. Urine drug screen was negative as was the UA. MRI brain was normal. Carotid ultrasound was within normal limits. Neurology, Dr. Vargas was consulted and patient underwent EEG which was unremarkable. Patient was started on Trileptal as per neuro. He was also found with rhabdomyolysis secondary to possibly seizure activity and was aggressively hydrated. He was transferred to inpatient psychiatry unit for further evaluation of his other psychiatric condition. He was in psychiatry today and the nurses called for patient to have seizure- like activity. Patient was seen when JAMESICAT has been called and that the patient was suspected for possible strokelike activity. Patient during that time appears post-ictal. Not following commands or responding to any questions. He was given 2 mg of Ativan. He was taken to CT scan. Dr. Khan has been called by psychiatrist Dr. Flores regarding patient's condition. Spoke with Dr. Khan, transferred to critical care unit for closer monitoring. EEG, stat labs, CT of the head, CTA has been ordered. Patient was seen and examined in critical care unit. Patient was sleeping, snoring, easily arousable to verbal and tactile stimuli. Able to tell his name , able to tell that he is at [place], states that he is in the emergency room, he knows where to [facility] [place], the state, states that it is his birthday today, which is true. Patient is able to follow commands move all extremities no unilateral weakness noted. security alarm technician in the room arranging for patient's EEG. Patient denies any pain or discomfort, unaware what had happened prior. 8-21 no acute events overnight seen with staff nurses at bedside per staff nurse- ate breakfast and lunch 100% continent of urine patient awake and alert, oriented x 3, no complains of pain, or headaches or dizziness speech slow but clear moves all extremities equally- but in a slow motion fashion patient states baseline he is ambulatory and uses a walker 8-22 PATIENT IS STABLE MEDICALLY CAN BE TRANSFERRED TO MED PSYCHIATRY TODAY DW FAMILY THEY ARE IN AGREEMENT DC TO IN PSYCHIATRY NO NEW COMPLAINTS EATING WELL - Time Spent with Patient Total time spent providing and/or coordinating discharge services: Greater than 30 minutes - Quality: VTE Deep Vein Thrombosis/Pulmonary Embolism Present on Admission: No Exam Vital signs: Vital Signs 02/21/18 16:00 02/21/18 20:00 02/21/18 20:05 Temperature 98.2 F 98.7 F Pulse Rate 81 85 Respiratory Rate 19 Blood Pressure 149/70 H 132/61 Pulse Oximetry 97 97 94 L 02/22/18 00:00 02/22/18 04:00 02/22/18 08:00 Temperature 97.8 F 97.8 F 98.2 F Pulse Rate 63 73 88 Respiratory Rate 17 17 17 Blood Pressure 138/73 136/74 Pulse Oximetry 95 97 96 02/22/18 12:00 Temperature 97.7 F Pulse Rate 94 H Respiratory Rate 18 Blood Pressure 139/67 Pulse Oximetry 96 Intake & Output 02/21/18 02/22/18 02/22/18 18:59 06:59 18:59 Intake Total 1355 / 1355 420 / 420 Output Total 375 / 375 500 / 500 Balance 980 / 980 -80 / -80 Weight 71.1 kg Intake: IV 105 / 105 Depacon Inj 500 MG In NS Inj 105 / 105 100 ML @ 105 mls/hr IV.SIG Q8HR KAY Rx#:[id number] Oral 1250 / 1250 420 / 420 Output: Urine 375 / 375 500 / 500 Stool 0 / 0 Other: Date of Last Bowel Movement 02/20/18 02/20/18 Narrative: awake and alert, speech slow but clear 02 sats 99 % - at 2 LNC anicteric neck supple lungs- no rales or wheezes regular rhythm abdomen soft, nontender extremities no edema CN grossly intact moves all extremities spontaneously VERY CONCERNED WITH HIS LUNCH Results Procedures completed during hospitalization: EEG Completed studies during hospitalization: Laboratory Results WBC 6.0 th/mm3 (4.0-11.0) 02/21/18 03:12 RBC 4.02 mil/mm3 (4.50-5.90) L 02/21/18 03:12 Hgb 12.6 gm/dL (13.0-17.0) L D 02/21/18 03:12 Hct 37.1 % (39.0-51.0) L 02/21/18 03:12 MCV 92.3 fL (80.0-100.0) 02/21/18 03:12 MCH 31.2 pg (27.0-34.0) 02/21/18 03:12 MCHC 33.8 % (32.0-36.0) 02/21/18 03:12 RDW 14.9 % (11.6-17.2) 02/21/18 03:12 Plt Count 230 th/mm3 (150-450) D 02/21/18 03:12 MPV 6.9 fL (7.0-11.0) L 02/21/18 03:12 Neut % (Auto) 67.3 % (16.0-70.0) 02/21/18 03:12 Lymph % (Auto) 21.1 % (9.0-44.0) 02/21/18 03:12 [place] % (Auto) 8.0 % (0.0-8.0) 02/21/18 03:12 Eos % (Auto) 2.5 % (0.0-4.0) 02/21/18 03:12 Baso % (Auto) 1.1 % (0.0-2.0) 02/21/18 03:12 Neut # (Auto) 4.0 th/mm3 (1.8-7.7) 02/21/18 03:12 Lymph # (Auto) 1.3 th/mm3 (1.0-4.8) 02/21/18 03:12 [place] # (Auto) 0.5 th/mm3 (0.0-0.9) 02/21/18 03:12 Eos # (Auto) 0.2 th/mm3 (0.0-0.4) 02/21/18 03:12 Baso # (Auto) 0.1 th/mm3 (0.0-0.2) 02/21/18 03:12 WBC Differential . 02/21/18 03:12 Differential Comment Auto diff final 02/21/18 03:12 Sodium 144 meq/L (136-145) 02/21/18 03:12 Potassium 3.8 meq/L (3.5-5.1) 02/21/18 03:12 Chloride 109 meq/L (98-107) H 02/21/18 03:12 Carbon Dioxide 27.8 meq/L (21.0-32.0) D 02/21/18 03:12 Anion Gap 7 meq/L (5-15) 02/21/18 03:12 BUN 16 mg/dL (7-18) 02/21/18 03:12 Creatinine 0.80 mg/dL (0.60-1.30) 02/21/18 03:12 Estimated GFR Greater than 89 mL/min (>89) 02/21/18 03:12 Random Glucose 73 mg/dL (74-106) L 02/21/18 03:12 Calcium 8.0 mg/dL (8.5-10.1) L D 02/21/18 03:12 Total Bilirubin 0.7 mg/dL (0.2-1.0) 02/21/18 03:12 AST 45 U/L (15-37) H 02/21/18 03:12 ALT 35 U/L (12-78) 02/21/18 03:12 Alkaline Phosphatase 123 U/L (45-117) H 02/21/18 03:12 Total Protein 6.7 g/dL (6.4-8.2) D 02/21/18 03:12 Albumin 2.9 g/dL (3.4-5.0) L D 02/21/18 03:12 Valproic Acid 62 mcg/mL (50-100) 02/22/18 04:20 Impressions Head MRI 02/20/18 00:00 CONCLUSION: 1. Negative noncontrast MRI of the brain. No evidence of acute infarction. Labs on day of discharge: Labs from last 24 hours 02/22/18 04:20 Valproic Acid 62 - Impressions ITS Impressions Head MRI 02/20/18 00:00 CONCLUSION: 1. Negative noncontrast MRI of the brain. No evidence of acute infarction. Discharge Plan - Discharge Disposition Patient Disposition: 67 Disc To [facility] - Discharge Condition Condition: Good - Discharge Order Discharge Orders: Discharge Order (Routine); Ordered 02/22/18 Ordered By: Kvng Silva - Discharge Details Anticipated Discharge Date: 02/22/18 Discharge Comment: DC TO INPATIENT MEDICAL PSYCHIATRY WHEN BED AVAILABLE - Physicians Team Primary Care Provider: UNKNOWN, Attending Provider: Kvng Silva Other Providers: Keshav Khan MD ; Hannah Young ; Avni Julian MD - Rxs /Orders / Referrals /Forms Prescriptions: New cyanocobalamin (vitamin B-12) 1,000 mcg/mL Solution 1,000 mcg Sub-Q Q7D RF: 0 cyanocobalamin (vitamin B-12) 1,000 mcg/mL Solution 1,000 mcg Sub-Q Q24H RF: 0 cyanocobalamin (vitamin B-12) 1,000 mcg/mL Solution 1,000 mcg Sub-Q Q30D RF: 0 divalproex 125 mg Capsule, Delayed Rel Sprinkle 500 mg PO TID RF: 0 lorazepam [Ativan] 2 mg/mL Solution 2 mg IV.PUSH Q10M PRN (Reason: See Label Comments) RF: 0 Continue amlodipine [Norvasc] 5 mg tablet 5 mg PO DAILY Discontinued mirtazapine 15 mg tablet 15 mg PO HS olanzapine [Zyprexa Zydis] 15 mg tablet,disintegrating 15 mg PO HS Referrals: UNKNOWN, [Primary Care Provider] - See Instructions
== END 2018-02-22 20:00 ==
LOC: N03 15:11
PROVIDERS: ADMIT Hospitalist; ATTEND Hospitalist

== ENCOUNTER 2018-02-22 18:52 | Inpatient (IN) ==
[2018-02-22] MEDS ORDERED: Aluminum/Magnesium/Simethacone Susp 30 ML UDC PO PRN (20:34)
[2018-02-22] MEDS ORDERED: Acetaminophen 325 MG Tablet PO PRN (20:34)
[2018-02-23] MEDS: amLODIPine 5 MG Tablet PO SCH (08:11)
[2018-02-23] MEDS: Divalproex 125 MG Sprinkles Capsule PO SCH ×4 (08:11→21:41)
[2018-02-23] MEDS: LORazepam 1 MG Tablet PO PRN (10:13)
--- NOTE | 2018-02-23 11:33 | P.CON ---
History of Present Illness Service: [facility] Consult date: 02/23/18 Requesting Physician: Jere Flores Reason for Consult: Medical management, seizure Primary Care Provider: UNKNOWN Chief Complaint: Seizure History of Present Illness: Patient is a 63 yo Male with past medical history of dementia, hypothyroidism, Parkinson disease, schizophrenia, seizure disorder who initially came into the hospital from a detention for altered mental status and seizure-like activity. CT the head did not show any acute findings. Urine drug screen was negative as was the UA. MRI brain was normal. Carotid ultrasound was within normal limits. Neurology, Dr. Vargas was consulted and patient underwent EEG which was unremarkable. Patient was started on Trileptal as per neuro. He was also found with rhabdomyolysis secondary to possibly seizure activity and was aggressively hydrated. He was transferred to inpatient psychiatry unit for further evaluation of his other psychiatric condition. He was in psychiatry patient to have seizure-like activity, HALICAT has been called (02/20/18) and that the patient was suspected for possible strokelike activity. Patient admitted to critical care unit for closer monitoring. 02/20/18 CT negative, 02/20/18 Head CTA no acute [place] vascular findings, 02/20/18 Neck CTA negative CTA carotid. No flow-limiting stenosis or dissection. Dr. Khan was following the patient and his placed patient on Depakote. Clinically improved now transferred to medical psychiatry unit for further evaluation of suicidal ideation. Consulted for assistance with medical management. Patient seen and examined today. Able to follow commands but slow to respond. Movements of extremities are equal. As per nursing, patient had episode of jerking movement appears to be clonic movements this morning, unable to talk, unable to respond to any questions or commands, around 830 this morning. He did not came back to being able to talk and follow commands after that. He received Ativan. Patient unable to remember events. Review of Systems unobtainable due to mental condition PMFSH - History History Provided By: Family Member - Medical History Medical History: Medical History (Last Reviewed 02/22/18 @ 08:28 by Edouard Jorge) Dementia Hypothyroidism Parkinson disease Schizophrenia Smoker - Surgical History Surgical History: Surgical History (Last Reviewed 02/22/18 @ 08:28 by Edouard Jorge) No history of previous surgery - Family History Family History: Family History (Last Reviewed 08/21/18 @ 09:45 by Jose Manuel Malhotra) Other Family history non-contributory Family history of hypertension - Tobacco History Second Hand Smoke Exposure: No Smoking Status: Former smoker Tobacco Type: Cigarettes - Alcohol History How Often Do You Have a Drink Containing Alcohol: Never - Substance Use History Substance History: No History of Abuse - Travel History History of Recent Travel: No Medications and Allergies Active Medications: Active Medications Acetaminophen (Tylenol) 650 mg PO Q4H PRN PRN Reason: Pain 1-5 or Temp >101F Last Admin: 02/22/18 22:29 Dose: 650 mg Al Hydrox/Mg Hydrox/Simethicone (Mag-Al Plus Susp Liq) 30 ml PO Q6H PRN PRN Reason: DYSPEPSIA Al Hydroxide/Mg Hydroxide (Milk Of Magnesia Liq) 30 ml PO DAILY PRN PRN Reason: Mild Constipation Amlodipine Besylate (Norvasc) 5 mg PO DAILY [facility] Last Admin: 02/23/18 08:11 Dose: 5 mg Cyanocobalamin (Vitamin B12 Inj) 1,000 mcg SQ DAILY@1800 [facility] Divalproex Sodium (Depakote Sprinkles) 500 mg PO TID [facility] Last Admin: 02/23/18 08:11 Dose: 500 mg Lorazepam (Ativan) 1 mg PO Q6H PRN PRN Reason: MODERATE TO SEVERE ANXIETY Last Admin: 02/23/18 10:13 Dose: 1 mg Lorazepam (Ativan Inj) 1 mg IM Q6H PRN PRN Reason: MODERATE TO SEVERE ANXIETY Nicotine (Habitrol 21 Mg Patch.24 Hr) 1 patch T-DERMAL DAILY [facility] Last Admin: 02/23/18 08:17 Dose: Not Given Patch Removal (Remove Old Patch) 1 each T-DERMAL DAILY [facility] Last Admin: 02/23/18 08:17 Dose: Not Given Allergies Allergy/AdvReac Type Severity Reaction Status Date / Time No Known Allergies Allergy Verified 01/31/18 18:22 Home Medications Medication Instructions Recorded Confirmed Type amlodipine [Norvasc] 5 mg PO DAILY 02/16/18 02/19/18 History Physical Exam Vital signs: Vital Signs 02/22/18 20:49 02/23/18 09:44 Temperature 98.2 F 97.5 F L Pulse Rate 85 112 H Respiratory Rate 18 20 Blood Pressure 124/64 146/75 H Pulse Oximetry 95 95 Intake & Output 02/22/18 02/23/18 02/23/18 18:59 06:59 18:59 Intake Total 180 / 180 Balance 180 / 180 Weight 68.2 kg Intake: Oral 180 / 180 Other: Weight On Admission 68.2 kg Narrative: GENERAL: This is a well-nourished, well-developed patient, in no apparent distress. SKIN: Warm and dry. HEENT: Normocephalic. Pupils equal round and reactive. Nose without bleeding. Airway patent. NECK: Trachea midline. No JVD. Supple. CARDIOVASCULAR: Regular rate and rhythm without murmurs, gallops, or rubs. RESPIRATORY: Clear to auscultation. Breath sounds equal bilaterally. No wheezes , rales, or rhonchi. GASTROINTESTINAL: Abdomen soft, non-tender, nondistended. Bowel Sounds normoactive x4. MUSCULOSKELETAL: Extremities without clubbing, cyanosis, or edema. NEUROLOGICAL: Awake and alert. Oriented to year, place, person. Moves all extremities 3/5. Slow speech. Slow to respond Assessment and Plan - Plan Patient is a 63 yo Male with past medical history of dementia, hypothyroidism, Parkinson disease, schizophrenia, seizure disorder who initially came into the hospital from a detention for altered mental status and seizure-like activity. No acute findings with diagnostic exams. Transfered to inpatient psych for further evaluation of his psychiatric condition. He had another seizure-like activity in the psychiatry unit. SHARON was called. Seizure Disorder -Epilepsy when he was young -Previous results CT the head did not show any acute findings. Urine drug screen was negative as was the UA. MRI brain was normal. Carotid ultrasound was within normal limits. Neurology, Dr. Vargas was consulted and patient underwent EEG which was unremarkable. -02/20/18 CT negative, Head CTA no acute [place] vascular findings, Neck CTA negative CTA carotid. No flow-limiting stenosis or dissection. -Ativan as needed for seizure -Monitor neuro status. Monitor vital signs. -Seizure precaution -On Depakote -Consult neurology for further evaluation. Appreciate recommendations Suicidal ideation, depression -Managed by psychiatry team DVT prop SCDs Code Status: Full Code Discussed Condition With: Patient, nurse Discharge Planning: DC disposition by primary team
[2018-02-23] MEDS ORDERED: Divalproex 125 MG Sprinkles Capsule PO ONE (20:00)
--- NOTE | 2018-02-23 20:33 | P.PNPSY ---
Subjective Remarks: Patient seen for follow-up, chart reviewed. Patient recently transferred to the medical unit after psychiatric admission as noted on 02/20/18 and patient was subsequently transferred back to the psychiatry unit after medical stabilization. Discussion nursing staff reported the patient at sister visited throughout the afternoon which went well, compliant with medications. Patient was found lying hospital bed noted B, cooperative patient noted to be somewhat tearful throughout interview stating that he is feeling okay" but also mention that he felt like he did not want to live. When asked about why he had felt this way he stated "when things are bad" and made some reference to his moravian beliefs. Patient denies any auditory hallucinations stating that the only thing in his mind or his thoughts, denies any physical complaints at this time, reports eating and drinking well with adequate bowel movement. Patient reports having been visited by sister where she was happy about. Patient presented to mental health court which patient was maintained on continuous. Review of Systems All other systems reviewed negative except as stated in HPI Mental Status Examination Appearance: Disheveled, Other (In hospital gown) Consciousness: Alert Orientation: Person, Place, Date/Time Motor Activity: Abnormal gait Speech: Hesitant, Slow Language: Adequate Fund of Knowledge: Inadequate Attention and Concentration: Adequate Memory: Unremarkable Mood: Sad Affect: Sad Thought Process & Associations: Other ([place]) Thought Content: Other Hallucination Type: None Delusion Type: None Suicidal Ideation: Yes (Stating feeling that he did not want to live) Suicidal Plan: No Suicidal Intention: No Homicidal Ideation: No Homicidal Plan: No Homicidal Intention: No Insight: Poor Judgment: Poor Assessment and Plan - Assessment (1) Schizophrenia Code(s): F20.9 - Schizophrenia, unspecified Status: Chronic - Plan Plan: Estimated LOS: [] days Patient this time noted to have occasional mild tremor of right arm, no more episodes of seizure activity noted during interview. Patient tolerated medications well. Patient noted to feel depressed along with expressing thoughts of not wanting to be alive. Patient denies any perceptual disturbances. We will start patient on quetiapine 25 mg p.o. twice daily for psychosis and mood stabilization. The patient persists with depressive symptoms we will consider starting sertraline. We will continue rest of medications. We will continue to monitor mood and behavior. We will order VPA level on 02/26/18. Consent was obtained via telephone with patient's healthcare surrogate, patient's Sister Jenny Metheny. Discharge planning a progress. Justification for Continued Inpatient Stay: At risk for further decompensation if at lower level of care.
[2018-02-23] MEDS: QUEtiapine 25 MG Tablet PO SCH (21:41)
--- NOTE | 2018-02-24 05:03 | MB ---
cc: Cornell Vargas MD, PhD DATE: 02/23/2018 REASON FOR CONSULTATION: Seizures. HISTORY OF PRESENT ILLNESS: Mr. Logan is a 63-year-old man who has a history of dementia, Parkinson disease, as well as seizures. He was recently evaluated with MRI of the brain that was normal. Carotid ultrasound normal. EEG was within normal limits. He was started on Trileptal, but still had seizure activity, placed on Depakote by Dr. Simms and the Trileptal discontinued. He is still having intermittent episodes of seizures. This morning had an episode of clonic movements according to the nursing staff with inability to talk. His last Depakote level was 62. CURRENT MEDICATIONS: Tylenol, simethicone, Milk of Magnesia, Norvasc 5 mg daily, vitamin B12 injection 1,000 mg daily, Depakote Sprinkles 500 mg t.i.d., Ativan 1 mg as needed for seizure, nicotine patch, Seroquel 25 mg b.i.d. NEUROLOGIC EXAMINATION: VITAL SIGNS: His blood pressure is 119/61, pulse 78, respirations 18, temperature 98.6 degrees. HIGHER CORTICAL FUNCTION: He is very lethargic. He can follow simple commands. He has minimal speech output. Cranial nerves intact. Motor exam: He has generalized weakness. No focal deficit. Reflexes are symmetric. IMPRESSION: Probable recurrent seizure. His Depakote level is on the low end of the therapeutic range, therefore, we will recommend increasing Depakote to 500 mg q.i.d. and follow Depakote levels. We will give him an extra dose of Depakote this evening as well to try to more acutely increase his level. Cornell Vargas MD, PhD GLENNY/poly/reinier , 07:10 PM , 07:17 PM
[2018-02-24 10:05] LABS: Calcium 8.8 mg/dL (8.5-10.1); Carbon Dioxide 26.2 meq/L (21.0-32.0)
[2018-02-24 10:18] LABS: Chol/HDL Ratio 2.56 Ratio; HDL Cholesterol 53.8 mg/dL (40.0-60.0)
--- NOTE | 2018-02-24 10:35 | P.PN ---
Subjective Interval history: Follow-up visit seizure, Parkinson's disease,Schizophrenia, dementia. Patient seen and examined today. Slow to respond but able to follow commands. As per nursing no acute issues overnight. No seizures noted throughout the morning and last night. Patient denies pain or discomfort. Denies shortness of breath or dyspnea. Denies headaches, dizziness. Physical Exam Vital signs: Vital Signs 02/23/18 17:17 02/24/18 05:39 Temperature 98.6 F 98.9 F Pulse Rate 78 70 Respiratory Rate 18 16 Blood Pressure 119/61 110/63 Pulse Oximetry 94 L 95 Intake & Output 02/23/18 02/24/18 02/24/18 18:59 06:59 18:59 Intake Total 480 / 480 315 / 315 Balance 480 / 480 315 / 315 Intake: Oral 480 / 480 315 / 315 Other: # Voids 1 Narrative: GENERAL: This is a well-nourished, well-developed patient, in no apparent distress. SKIN: Warm and dry. HEENT: Normocephalic. Pupils equal round and reactive. Nose without bleeding. Airway patent. NECK: Trachea midline. CARDIOVASCULAR: Regular rate and rhythm without murmurs, gallops, or rubs. RESPIRATORY: Clear to auscultation. Breath sounds equal bilaterally. No wheezes , rales, or rhonchi. GASTROINTESTINAL: Abdomen soft, non-tender, nondistended. Bowel Sounds normoactive x4. MUSCULOSKELETAL: Extremities without clubbing, cyanosis, or edema. NEUROLOGICAL: Awake and alert. Oriented to year, person. Moves all extremities 3 /5. Slow speech. Slow to respond. Following commands Results - Labs CBC & Chem 7: 02/24/18 09:13 Laboratory Results - last 24 hr 02/24/18 09:13 Sodium 139 Potassium 4.0 Chloride 104 Carbon Dioxide 26.2 Anion Gap 9 BUN 16 Creatinine 0.89 Estimated GFR 87 L Random Glucose 125 H Calcium 8.8 Triglycerides 56 Cholesterol 138 LDL Cholesterol, Calc 73 HDL Cholesterol 53.8 Cholesterol/HDL Ratio 2.56 Assessment and Plan - Plan Patient is a 63 yo Male with past medical history of dementia, hypothyroidism, Parkinson disease, schizophrenia, seizure disorder who initially came into the hospital from a long term for altered mental status and seizure-like activity. No acute findings with diagnostic exams. Transfered to inpatient psych for further evaluation of his psychiatric condition. He had another seizure-like activity in the psychiatry unit. KENTRELLT was called. Seizure Disorder -Epilepsy when he was young -Previous results CT the head did not show any acute findings. Urine drug screen was negative as was the UA. MRI brain was normal. Carotid ultrasound was within normal limits. Neurology, Dr. Vargas was consulted and patient underwent EEG which was unremarkable. -02/20/18 CT negative, Head CTA no acute [place] vascular findings, Neck CTA negative CTA carotid. No flow-limiting stenosis or dissection. -Ativan as needed for seizure -Monitor neuro status. Monitor vital signs. -Seizure precaution -Consult neurology for further evaluation. Appreciate recommendations -Increase Depakote dose as per neuro Suicidal ideation, depression -Managed by psychiatry team DVT prop SCDs Code Status: Full code Discussed Condition With: Patient, nursing Discharge Planning: DC disposition by primary team
[2018-02-24] MEDS: QUEtiapine 25 MG Tablet PO SCH ×2 (10:43→21:28)
[2018-02-24] MEDS: Divalproex 125 MG Sprinkles Capsule PO SCH ×4 (10:44→21:41)
[2018-02-24] MEDS: amLODIPine 5 MG Tablet PO SCH (10:45)
--- NOTE | 2018-02-24 15:00 | P.DIET ---
Nutritional Evaluation Type of nutrition evaluation: initial Nutrition consult regarding: Diet Evaluation Nutrition screening: [facility] Screening comments: 02/23/18 [facility] Poor PO Intake Subjective Subjective Comments: Pt visited after lunch today. Pt receptive to receiving Enure Enlive. Pt says he needs chopped meats w/gravy-discussed w/RN Pat. Actual Ht of 190.5cm from a previous admission used for assessment here. Objective - Diagnosis Schizophrenia - Objective [place] body weight: 89 kg % IBW: 77 Body Weight Used for Calculations: Actual (68.2kg) Energy Needs - Lower Range (kCal/kg): 35 Energy Needs - Upper Range (kCal/kg): 40 Lower Limit kCal/kg (kCals): 2,387 Upper Limit kCal/kg (kCals): 2,728 Lower Limit Protein Factor (Grams per Kg): 1.2 Upper Limit Protein Factor (Grams per Kg): 1.5 Lower Protein Needs (Protein): 82 Upper Protein Needs (Protein): 102 Dietitian Reviewed in Medical Record: Current diet, Curent medications, Intake & Output, Labs, Medical history Diet Order: Regular Objective Comments: PMH: Dementia, Hypothyroidism, Parkinsons Disease, Schizophrenia, Smoker Glucose 125, HgA1C 6.0 Assessment Assessment: Pt is at nutritional risk r/t poor po intake. Rec diet texture downgrade to Mech Soft w/chopped meat and gravy per pt request-discussed w/RN Pat. Send Ensure Enlive TID(= 350 kcal and 20g Protein per serving). Labs reviewed-A1C noted-monitor glucose. Dietitian will follow. Recommendations: 1. Rec diet texture downgrade to Mech Soft w/chopped meat and gravy per pt request 2. Send Ensure Enlive TID 3. Dietitian will follow Dietitian to Monitor: Lab values, Glucose level, Supplement acceptance, Intake & Output, Diet tolerance, Weight change, PO Intake, Medical course
--- NOTE | 2018-02-24 20:31 | P.PNPSY ---
Subjective Remarks: Patient seen for follow, chart reviewed. Discussion nursing staff reported the patient slept well last night continues and appears lethargic after medications , no further seizures. Patient had Depakote dose increase as per neurology consult which may account for some of the lethargy has medication is sedating. Patient was found lying hospital bed was able to engage in interview, with reported mood being good, reports having slept well stating that he had a peaceful sleep. Patient reports adequate appetite, no difficulty or bowel movement. Patient denies any thoughts of wanting to end his life and states yes when asked of having thoughts of not wanting to be alive. Patient continues report feeling "down" was unable to elaborate. Patient not noted to be tearful today. Patient had visited by sister for electrolytes today. Review of Systems All other systems reviewed negative except as stated in HPI Mental Status Examination Appearance: Appropriate, Other (In hospital gown) Consciousness: Alert Orientation: Person, Place, Date/Time Motor Activity: Abnormal gait Speech: Hesitant, Slow Language: Adequate Fund of Knowledge: Inadequate Attention and Concentration: Adequate Memory: Unremarkable Mood: Other ("Down") Affect: Sad Thought Process & Associations: Other ([place]) Thought Content: Other Hallucination Type: None Delusion Type: None Suicidal Ideation: Yes (Stating having thoughts of not wanting to be alive but denies any thoughts of wanting to end his life) Suicidal Plan: No Suicidal Intention: No Homicidal Ideation: No Homicidal Plan: No Homicidal Intention: No Insight: Poor Judgment: Poor Assessment and Plan - Assessment (1) Schizophrenia Code(s): F20.9 - Schizophrenia, unspecified Status: Chronic - Plan Plan: Patient continues report depressed mood, denying any thoughts of self-harm or wanting to end his life but having thoughts of not wanting to be alive. We will start sertraline 25 mg p.o. daily for depression, continue rest of medications. We will continue to monitor mood and behavior. Continue recommendations as per primary medical team as well as neurology consult. Continue physical therapy. Discharge planning in progress. Justification for Continued Inpatient Stay: At risk of further decompensation at lower level care.
[2018-02-25] MEDS: Sertraline 50 MG Tablet PO SCH (08:40)
[2018-02-25] MEDS: QUEtiapine 25 MG Tablet PO SCH ×2 (08:40→21:09)
[2018-02-25] MEDS: amLODIPine 5 MG Tablet PO SCH (08:40)
[2018-02-25] MEDS: Divalproex 125 MG Sprinkles Capsule PO SCH ×4 (08:40→21:09)
--- NOTE | 2018-02-25 09:56 | P.PN ---
Subjective Interval history: Follow-up visit seizure, Parkinson's disease,Schizophrenia, dementia. Patient seen and examined today. Slow to respond but able to follow commands. As per nurse, no seizures noted throughout the morning and last night. Patient denies pain or discomfort. Denies shortness of breath or dyspnea. Denies headaches, dizziness. Physical Exam Vital signs: Vital Signs 02/24/18 18:34 02/25/18 06:13 Temperature 98.5 F 98.7 F Pulse Rate 86 81 Respiratory Rate 17 16 Blood Pressure 126/61 158/82 H Pulse Oximetry 94 L 95 Intake & Output 02/24/18 02/25/18 02/25/18 18:59 06:59 18:59 Intake Total 720 / 720 420 / 420 Balance 720 / 720 420 / 420 Intake: Oral 720 / 720 420 / 420 Other: # Voids 0 Narrative: GENERAL: This is a well-nourished, well-developed patient, in no apparent distress. SKIN: Warm and dry. HEENT: Normocephalic. Pupils equal round and reactive. Nose without bleeding. Airway patent. NECK: Trachea midline. CARDIOVASCULAR: Regular rate and rhythm without murmurs, gallops, or rubs. RESPIRATORY: Clear to auscultation. Breath sounds equal bilaterally. No wheezes , rales, or rhonchi. GASTROINTESTINAL: Abdomen soft, non-tender, nondistended. Bowel Sounds normoactive x4. MUSCULOSKELETAL: Extremities without clubbing, cyanosis, or edema. NEUROLOGICAL: Awake and alert. Oriented to year, person. Moves all extremities 3 /5. Slow speech. Slow to respond. Following commands Results - Labs CBC & Chem 7: 02/24/18 09:13 Laboratory Results - last 24 hr 02/24/18 02/24/18 09:13 09:13 Sodium 139 Potassium 4.0 Chloride 104 Carbon Dioxide 26.2 Anion Gap 9 BUN 16 Creatinine 0.89 Estimated GFR 87 L Random Glucose 125 H Hemoglobin A1c 6.0 Calcium 8.8 Triglycerides 56 Cholesterol 138 LDL Cholesterol, Calc 73 HDL Cholesterol 53.8 Cholesterol/HDL Ratio 2.56 Assessment and Plan - Plan Patient is a 63 yo Male with past medical history of dementia, hypothyroidism, Parkinson disease, schizophrenia, seizure disorder who initially came into the hospital from a [facility] for altered mental status and seizure-like activity. No acute findings with diagnostic exams. Transfered to inpatient psych for further evaluation of his psychiatric condition. He had another seizure-like activity in the psychiatry unit. HALICAT was called. Seizure Disorder -Epilepsy when he was young -Previous results CT the head did not show any acute findings. Urine drug screen was negative as was the UA. MRI brain was normal. Carotid ultrasound was within normal limits. Neurology, Dr. Vargas was consulted and patient underwent EEG which was unremarkable. -02/20/18 CT negative, Head CTA no acute [place] vascular findings, Neck CTA negative CTA carotid. No flow-limiting stenosis or dissection. -Ativan as needed for seizure -Monitor neuro status. Monitor vital signs. -Seizure precaution -Consult neurology for further evaluation. Appreciate recommendations -Increase Depakote dose as per neuro Suicidal ideation, depression -Managed by psychiatry team DVT prop SCDs Code Status: Full code Discussed Condition With: Patient, nursing Discharge Planning: DC disposition by primary team
--- NOTE | 2018-02-25 16:03 | P.PNPSY ---
Subjective Remarks: Reviewed electronic medical records and discussed case with staff. Follow-up was conducted in the patient's room with nurse present. The nurse reports that the patient has been a "bit confused, unpleasant, and nasty at times" with staff. He is intermittently compliant with medications and did agree to take them in some pudding this morning. He reports that he feels "sad" and needs a "foot doctor". He complains of foot pain, although he does admit the pain is chronic. Mental Status Examination Appearance: Appropriate, Other (In hospital gown) Consciousness: Alert Orientation: Person, Place, Date/Time Motor Activity: Abnormal gait Speech: Hesitant, Slow Language: Adequate Fund of Knowledge: Inadequate Attention and Concentration: Adequate Memory: Unremarkable Mood: Other ("Down") Affect: Sad Thought Process & Associations: Other ([place]) Thought Content: Other Hallucination Type: None Delusion Type: None Suicidal Ideation: Yes (Stating having thoughts of not wanting to be alive but denies any thoughts of wanting to end his life) Suicidal Plan: No Suicidal Intention: No Homicidal Ideation: No Homicidal Plan: No Homicidal Intention: No Insight: Poor Judgment: Poor Assessment and Plan - Assessment (1) Schizophrenia Code(s): F20.9 - Schizophrenia, unspecified Status: Chronic - Plan Plan: Patient will be reevaluated Tuesday by the attending psychiatrist. Continue with current treatment plan. Justification for Continued Inpatient Stay: Moving this patient to a less restrictive environment would likely result in decompensation.
[2018-02-26] MEDS: amLODIPine 5 MG Tablet PO SCH (08:22)
[2018-02-26] MEDS: Sertraline 50 MG Tablet PO SCH (08:22)
[2018-02-26] MEDS: Divalproex 125 MG Sprinkles Capsule PO SCH ×4 (08:22→20:47)
[2018-02-26] MEDS: QUEtiapine 25 MG Tablet PO SCH ×2 (08:22→20:47)
--- NOTE | 2018-02-26 11:28 | P.PN ---
Subjective Interval history: Follow-up visit seizure, Parkinson's disease,Schizophrenia, dementia. Patient seen and examined today. Slow to respond but able to follow commands. As per nurse, no seizures overnight. Patient denies pain or discomfort. Denies shortness of breath or dyspnea. Denies headaches, dizziness. Physical Exam Vital signs: Vital Signs 02/25/18 18:00 02/26/18 06:22 Temperature 97.4 F L 97.4 F L Pulse Rate 81 82 Respiratory Rate 18 18 Blood Pressure 117/55 L 133/74 Pulse Oximetry 94 L 95 Intake & Output 02/25/18 02/26/18 02/26/18 18:59 06:59 18:59 Intake Total 2880 / 2880 840 / 840 Balance 2880 / 2880 840 / 840 Intake: Oral 2880 / 2880 840 / 840 Other: # Voids 0 # Bowel Movements 1 Narrative: GENERAL: This is a well-nourished, well-developed patient, in no apparent distress. SKIN: Warm and dry. HEENT: Normocephalic. Pupils equal round and reactive. Nose without bleeding. Airway patent. NECK: Trachea midline. CARDIOVASCULAR: Regular rate and rhythm without murmurs, gallops, or rubs. RESPIRATORY: Clear to auscultation. Breath sounds equal bilaterally. No wheezes , rales, or rhonchi. GASTROINTESTINAL: Abdomen soft, non-tender, nondistended. Bowel Sounds normoactive x4. MUSCULOSKELETAL: Extremities without clubbing, cyanosis, or edema. NEUROLOGICAL: Awake and alert. Oriented to year, person. Moves all extremities 3 /5. Slow speech. Slow to respond. Following commands Results - Labs CBC & Chem 7: 02/24/18 09:13 Laboratory Results - last 24 hr 02/26/18 08:33 Valproic Acid 74 Assessment and Plan - Plan Patient is a 63 yo Male with past medical history of dementia, hypothyroidism, Parkinson disease, schizophrenia, seizure disorder who initially came into the [facility] a [facility] for altered mental status and seizure-like activity. No acute findings with diagnostic exams. Transfered to inpatient psych for further evaluation of his psychiatric condition. He had another seizure-like activity in the psychiatry unit. HALSHAYLAT was called. Seizure Disorder -Epilepsy when he was young -Previous results CT the head did not show any acute findings. Urine drug screen was negative as was the UA. MRI brain was normal. Carotid ultrasound was within normal limits. Neurology, Dr. Vargas was consulted and patient underwent EEG which was unremarkable. -02/20/18 CT negative, Head CTA no acute inupiat of Yusuf vascular findings, Neck CTA negative CTA carotid. No flow-limiting stenosis or dissection. -Ativan as needed for seizure -Monitor neuro status. Monitor vital signs. -Seizure precaution -Consult neurology for further evaluation. Appreciate recommendations -Increased Depakote 500mg QID dose as per neuro -No seizures reported Suicidal ideation, depression -Managed by psychiatry team Debility, Parkinson's -PT eval and treat -Increase activity DVT prop Lovenox Stable from Hospitalist standpoint. We will sign off. Reconsult as needed. Thank you. Code Status: Full code Discussed Condition With: Patient, nursing Discharge Planning: DC disposition by primary team
--- NOTE | 2018-02-26 14:04 | P.PNPSY ---
Subjective Remarks: Patient was seen today for psychiatric reevaluation. The patient continues to be quite distant, guarded, but he is able to states that he feels better, he is oriented in person and place. He reports feeling better, at some point during the conversation the patient stated that he does not want to talk anymore. He has been compliant his medications, no significant side effects per Mental Status Examination Appearance: Appropriate, Other (In hospital gown) Consciousness: Alert Orientation: Person, Place, Date/Time Motor Activity: Abnormal gait Speech: Hesitant, Slow Language: Adequate Fund of Knowledge: Inadequate Attention and Concentration: Adequate Memory: Unremarkable Mood: Other ("Down") Affect: Sad Thought Process & Associations: Other ([place]) Thought Content: Other Hallucination Type: None Delusion Type: None Suicidal Ideation: Yes (Stating having thoughts of not wanting to be alive but denies any thoughts of wanting to end his life) Suicidal Plan: No Suicidal Intention: No Homicidal Ideation: No Homicidal Plan: No Homicidal Intention: No Insight: Poor Judgment: Poor Assessment and Plan - Assessment (1) Schizophrenia Code(s): F20.9 - Schizophrenia, unspecified Status: Chronic - Plan Plan: Continue current psychotropic regimen. Continue to encourage the patient to take medications and to get out of bed. Justification for Continued Inpatient Stay: Patient has elevated risk to decompensate at a lower level of care.
[2018-02-26] MEDS: Enoxaparin Inj 40 MG/0.4 ML Syringe SQ SCH (15:53)
[2018-02-27] MEDS: amLODIPine 5 MG Tablet PO SCH (10:16)
[2018-02-27] MEDS: Sertraline 50 MG Tablet PO SCH (10:16)
[2018-02-27] MEDS: QUEtiapine 25 MG Tablet PO SCH ×2 (10:16→21:13)
[2018-02-27] MEDS: Divalproex 125 MG Sprinkles Capsule PO SCH ×4 (10:16→21:13)
--- NOTE | 2018-02-27 16:43 | P.PNPSY ---
Subjective Remarks: Patient seen for follow-up, chart reviewed. Discussion with nursing staff reported that the patient no seizure activity, has a compliant, mostly seclusive , had one episode of urinary incontinence. Patient was found lying hospital bed noted B, cooperative. Patient was encouraged to let staff know when he needed assistance pulled also noted that the call mack in his room was nonfunctional. Patient reports feeling "good" denying any perceptional services , denying delusions, denying any suicidal homicidal ideation at this time. Patient was encouraged to participate in groups which she agreed but also to be less seclusive and being in day room for some time which patient was later noted to be doing in the afternoon for lunch. Patient continues to work with physical therapy. Review of Systems All other systems reviewed negative except as stated in HPI Mental Status Examination Appearance: Appropriate, Other (In hospital gown) Consciousness: Alert Orientation: Person, Place, Date/Time Motor Activity: Abnormal gait Speech: Hesitant, Slow Language: Adequate Fund of Knowledge: Inadequate Attention and Concentration: Adequate Memory: Unremarkable Mood: Other ("good") Affect: Blunt Thought Process & Associations: Other ([place]) Thought Content: Other Hallucination Type: None Delusion Type: None Suicidal Ideation: No Suicidal Plan: No Suicidal Intention: No Homicidal Ideation: No Homicidal Plan: No Homicidal Intention: No Insight: Poor Judgment: Poor Assessment and Plan - Assessment (1) Schizophrenia Code(s): F20.9 - Schizophrenia, unspecified Status: Chronic - Plan Plan: Patient noted with improvement in mood, no longer endorsing feeling depressed today, denying any perceptional services, denying any suicidal homicidal ideation. Patient continues to be noted to have continued poor motivation, but upon encouragement was able to spend time in the dayroom watching television having his lunch. We will continue to encourage patient to be more participatory in groups and activities, continue physical therapy. We will continue current treatment. Continue to monitor mood and behavior. Seizure precautions. Discharge planning in progress. Justification for Continued Inpatient Stay: At risk of further decompensation at lower level of care.
[2018-02-27] MEDS: Enoxaparin Inj 40 MG/0.4 ML Syringe SQ SCH (17:30)
[2018-02-28] MEDS: Divalproex 125 MG Sprinkles Capsule PO SCH ×4 (10:08→20:56)
[2018-02-28] MEDS: QUEtiapine 25 MG Tablet PO SCH ×2 (10:09→20:56)
[2018-02-28] MEDS: Sertraline 50 MG Tablet PO SCH (10:10)
[2018-02-28] MEDS: amLODIPine 5 MG Tablet PO SCH (10:10)
--- NOTE | 2018-02-28 14:32 | P.PNPSY ---
Subjective Remarks: Patient seen for follow, chart reviewed. Discussion nursing staff reported the patient has been ambulatory, showered, sister visited yesterday which went well , no behavioral issues. Patient was found lying hospital bed asleep was able to wake up for interview today. Patient states that his mood has been "good" reports eating and drinking well, reports having visited his sister but states that his mood in general has been down but denying any suicidal ideations, denies auditory hallucinations but did report some visual perceptions of "sand in the air". When asked about recent factors contributing to her depressed mood patient could not elaborate but agreed to come out to the day room later this afternoon. Review of Systems All other systems reviewed negative except as stated in HPI Mental Status Examination Appearance: Appropriate, Other (In hospital gown) Consciousness: Alert Orientation: Person, Place, Date/Time Motor Activity: Abnormal gait Speech: Hesitant, Slow Language: Adequate Fund of Knowledge: Inadequate Attention and Concentration: Adequate Memory: Unremarkable Mood: Sad Affect: Blunt Thought Process & Associations: Other ([place]) Thought Content: Other Hallucination Type: None Delusion Type: None Suicidal Ideation: No Suicidal Plan: No Suicidal Intention: No Homicidal Ideation: No Homicidal Plan: No Homicidal Intention: No Insight: Poor Judgment: Poor Assessment and Plan - Assessment (1) Schizophrenia Code(s): F20.9 - Schizophrenia, unspecified Status: Chronic - Plan Plan: Patient reporting depressed mood today but denying suicide ideations. We will increase sertraline to 50 mg p.o. daily for depression, continue rest of medications. Continue to monitor mood and behavior. Discharge planning in progress. Justification for Continued Inpatient Stay: At risk for further decompensation if at lower level of care.
--- NOTE | 2018-02-28 15:36 | P.TTN ---
- Patient Problems Problems: 1. Discharge planning 2. Medication compliance 3. Knowledge deficit 4. Lack of coping skills - Progress Toward Goals Provider Present: Dr. Marty Flores Provider Input: Pt started on antidepressant on Tuesday. Increased Depakote which caused him to be more sedated. SNF placement pending. Nurse(s) Present: Carlos Nurse Input: Pt is med compliant , cooperative, no behavioral issues, not taking enough fluids orally which is cause for concern. Psychiatric Counselors Present: Danielle Mejia LCSW, Shayne Mulligan Jr., [facility], Patsy [place], [facility], Other Psychiatric Therapist Input: [facility] will not [facility] him back due to SI. Group Spec/RT/OT/MENDEZ Present: VANESSA Wong Group Spec/RT/OT/MENDEZ Input: Pt is unable to tolerate much activity due to limited mobility and ROM. he does not participate. - Documentation Teaching Recipient: Patient
[2018-02-28] MEDS: Enoxaparin Inj 40 MG/0.4 ML Syringe SQ SCH (17:41)
[2018-03-01] MEDS: amLODIPine 5 MG Tablet PO SCH (09:11)
[2018-03-01] MEDS: Sertraline 50 MG Tablet PO SCH (09:11)
[2018-03-01] MEDS: Divalproex 125 MG Sprinkles Capsule PO SCH ×4 (09:11→21:12)
[2018-03-01] MEDS: QUEtiapine 25 MG Tablet PO SCH ×2 (09:11→21:12)
--- NOTE | 2018-03-01 11:13 | P.TTN ---
- Patient Problems Problems: 1. Discharge planning 2. Medication compliance 3. Knowledge deficit 4. Lack of coping skills - Progress Toward Goals Provider Present: Dr. Marty Flores Provider Input: Pt started on antidepressant on Tuesday. Increased Depakote which caused him to be more sedated. SNF placement pending. 03/01/18: John Flores MD; pt being titrated on Zoloft with goal of pt stabilization. Nurse(s) Present: Carlos Nurse Input: Pt is med compliant , cooperative, no behavioral issues, not taking enough fluids orally which is cause for concern. 03/01/18: John Palencia, RN ; pt is compliant with crushed medications in his food, continues to require moderate assist with ADLS. Psychiatric Counselors Present: Danielle Mejia LCSW, Shayne Mulligan Jr., [facility], Patsy L[place], [facility], Other Psychiatric Therapist Input: [facility] will not take him back due to SI. 03/01/18: John Garner; pt has not made references to SI or [facility]. Garner to pursue snf placements. Group Spec/RT/OT/MENDEZ Present: JACOB Lares, VANESSA Wong, Eldon Barnhart, OT Group Spec/RT/OT/MENDEZ Input: Pt is unable to tolerate much activity due to limited mobility and ROM. he does not participate. 03/01/18: Pt is unable to tolerate group activities. Occupational Therapist Input: 03/01/18: Pt requires moderate assist for ADLS, per consultation with nursing staff. - Discharge Plan Per treating medical staff; pt will require snf placement per his medical condition and ability, Patsy to follow-up for appropriate discharge for pt. - Documentation Scribe: Eldon Barnhart, MS, OTR Teaching Recipient: Patient
--- NOTE | 2018-03-01 14:11 | P.PNPSY ---
Subjective Remarks: The patient was seen today for psychiatric reevaluation. The case was discussed with nursing staff. Initially taken a shower, seems to be in a brighter mood. Patient states that his mood has been "good" reports eating and drinking well, reports having visited his sister but states that his mood in general has been down but denying any suicidal ideations, denies auditory hallucinations but did report some visual perceptions of "sand in the air". When asked about recent factors contributing to her depressed mood patient could not elaborate but agreed to come out to the day room later this afternoon. Mental Status Examination Appearance: Appropriate, Other (In hospital gown) Consciousness: Alert Orientation: Person, Place, Date/Time Motor Activity: Abnormal gait Speech: Hesitant, Slow Language: Adequate Fund of Knowledge: Inadequate Attention and Concentration: Adequate Memory: Unremarkable Mood: Sad Affect: Blunt Thought Process & Associations: Other ([place]) Thought Content: Other Hallucination Type: None Delusion Type: None Suicidal Ideation: No Suicidal Plan: No Suicidal Intention: No Homicidal Ideation: No Homicidal Plan: No Homicidal Intention: No Insight: Poor Judgment: Poor Assessment and Plan - Assessment (1) Schizophrenia Code(s): F20.9 - Schizophrenia, unspecified Status: Chronic - Plan Plan: Continue current psychotropic regimen. Brief supportive psychotherapy provided. Justification for Continued Inpatient Stay: Patient has an elevated risk to decompensate at a lower level of care.
[2018-03-01] MEDS: Enoxaparin Inj 40 MG/0.4 ML Syringe SQ SCH (15:31)
[2018-03-02] MEDS: Sertraline 50 MG Tablet PO SCH (08:44)
[2018-03-02] MEDS: Divalproex 125 MG Sprinkles Capsule PO SCH ×4 (08:44→20:35)
[2018-03-02] MEDS: amLODIPine 5 MG Tablet PO SCH (08:44)
[2018-03-02] MEDS: QUEtiapine 25 MG Tablet PO SCH ×2 (08:44→20:35)
--- NOTE | 2018-03-02 13:50 | P.PNPSY ---
Subjective Remarks: The patient was seen today for psychiatric reevaluation. The patient is poorly cooperative, kind of oppositional, refusing to answer my questions. He does deny to be distress or pain. He has been taking his medications, no significant side effects. No behavioral dysregulation, no agitation or aggressive behavior reported in the last 24 hours. Mental Status Examination Appearance: Appropriate, Other (In hospital gown) Consciousness: Alert Orientation: Person, Place, Date/Time Motor Activity: Abnormal gait Speech: Hesitant, Slow Language: Adequate Fund of Knowledge: Inadequate Attention and Concentration: Adequate Memory: Unremarkable Mood: Sad Affect: Blunt Thought Process & Associations: Other ([place]) Thought Content: Other Hallucination Type: None Delusion Type: None Suicidal Ideation: No Suicidal Plan: No Suicidal Intention: No Homicidal Ideation: No Homicidal Plan: No Homicidal Intention: No Insight: Poor Judgment: Poor Assessment and Plan - Assessment (1) Schizophrenia Code(s): F20.9 - Schizophrenia, unspecified Status: Chronic - Plan Plan: Patient continues to be acutely psychotic. Continue current psychotropic regimen. Justification for Continued Inpatient Stay: Continue psychiatric admission for stabilization and safety
[2018-03-02] MEDS: Enoxaparin Inj 40 MG/0.4 ML Syringe SQ SCH (15:11)
[2018-03-03] MEDS: QUEtiapine 25 MG Tablet PO SCH ×2 (10:06→21:05)
[2018-03-03] MEDS: Sertraline 50 MG Tablet PO SCH (10:06)
[2018-03-03] MEDS: Divalproex 125 MG Sprinkles Capsule PO SCH ×4 (10:06→21:05)
[2018-03-03] MEDS: amLODIPine 5 MG Tablet PO SCH (10:07)
--- NOTE | 2018-03-03 12:33 | P.PNPSY ---
Subjective Remarks: The patient was seen today for psychiatric reevaluation. Case was discussed with nursing staff. The patient was found calm, cooperative, surprisingly more engageable in a conversation, watching TV. He reports feeling much better, being in a good mood, denies distress, denies anxiety and depression. He denies suicidal and homicidal ideation. Reports occasional auditory hallucinations, and radio inside his head Mental Status Examination Appearance: Appropriate, Other (In hospital gown) Consciousness: Alert Orientation: Person, Place, Date/Time Motor Activity: Abnormal gait Speech: Hesitant, Slow Language: Adequate Fund of Knowledge: Inadequate Attention and Concentration: Adequate Memory: Unremarkable Mood: Sad Affect: Blunt Thought Process & Associations: Other ([place]) Thought Content: Other Hallucination Type: None Delusion Type: None Suicidal Ideation: No Suicidal Plan: No Suicidal Intention: No Homicidal Ideation: No Homicidal Plan: No Homicidal Intention: No Insight: Poor Judgment: Poor Assessment and Plan - Assessment (1) Schizophrenia Code(s): F20.9 - Schizophrenia, unspecified Status: Chronic - Plan Plan: Patient continues to show good improvement with psychotropic regimen. Continue current psychotropic regimen today. Justification for Continued Inpatient Stay: Elevated risk to decompensate at a lower level of care.
--- NOTE | 2018-03-03 13:36 | P.DIET ---
Nutritional Evaluation Type of nutrition evaluation: follow-up Nutrition consult regarding: Diet Evaluation Nutrition screening: [facility] Screening comments: 02/23/18 [facility] [place] Poor PO Intake Subjective Subjective Comments: Actual Ht of 190.5cm from a previous admission used for assessment here. Pt sleeping w/50% po intake for Ensure Supplement on bedside table. 75% po intake for breakfast and lunch today. Objective - Diagnosis Schizophrenia - Objective [place] body weight: 89 kg % IBW: 77 Body Weight Used for Calculations: Actual (68.2kg) Energy Needs - Lower Range (kCal/kg): 35 Energy Needs - Upper Range (kCal/kg): 40 Lower Limit kCal/kg (kCals): 2,387 Upper Limit kCal/kg (kCals): 2,728 Lower Limit Protein Factor (Grams per Kg): 1.2 Upper Limit Protein Factor (Grams per Kg): 1.5 Lower Protein Needs (Protein): 82 Upper Protein Needs (Protein): 102 Dietitian Reviewed in Medical Record: Current diet, Curent medications, Intake & Output, Labs, Medical history Diet Order: Regular Oral Diet Intake Amount: Fair 50-75% Objective Comments: PMH: Dementia, Hypothyroidism, Parkinsons Disease, Schizophrenia, Smoker HgA1C 6.0 Meds Include: Norvasc, B12, Depakote, Ativan, Seroquel, Zoloft +1BM Feeding - Current PO Supplement Current Supplement: Ensure Enlive Current Frequency of Supplement: Three times a day Current kCals Provided by Supplement: 350 Current Protein Provided by Supplement: 20 Assessment Assessment: Pt continues at nutritional risk r/t poor po intake. PO intake has improved from previous visit w/50% or greater for most meals. Regular diet w/previous Rec diet texture downgrade to [facility] Soft w/chopped meat and gravy per pt request. Plan to monitor pt diet tolerance. Continue Ensure Enlive TID Labs reviewed-A1C noted-monitor glucose. Wt changes noted. Dietitian following. Recommendations: 1. Plan to monitor pt diet tolerance 2. Continue Ensure Enlive TID 3. Dietitian following Dietitian to Monitor: Lab values, Glucose level, Supplement acceptance, Intake & Output, Diet tolerance, Weight change, PO Intake, Medical course
[2018-03-03] MEDS: Enoxaparin Inj 40 MG/0.4 ML Syringe SQ SCH (17:15)
[2018-03-03] MEDS: LORazepam 1 MG Tablet PO PRN (18:29)
--- NOTE | 2018-03-04 08:45 | P.PNPSY ---
Subjective Remarks: Patient seen in his room with nurse Nel, chart reviewed, patient compliant medication. Patient calm pleasant with me denies suicidality homicidality, states his occasional intermittent voices are not threatening. Hoping for discharge within the next few days to return home. We will increase Seroquel to 50 mg twice daily Review of Systems All other systems reviewed negative except as stated in HPI Mental Status Examination Appearance: Appropriate, Other (In hospital gown) Consciousness: Alert Orientation: Person, Place, Date/Time Motor Activity: Abnormal gait Speech: Hesitant, Slow Language: Adequate Fund of Knowledge: Inadequate Attention and Concentration: Adequate Memory: Unremarkable Mood: Sad Affect: Blunt Thought Process & Associations: Other ([place]) Thought Content: Other Hallucination Type: None (Vague intermittent voices), Auditory Delusion Type: None Suicidal Ideation: No Suicidal Plan: No Suicidal Intention: No Homicidal Ideation: No Homicidal Plan: No Homicidal Intention: No Insight: Poor Judgment: Poor Assessment and Plan - Assessment (1) Schizophrenia Code(s): F20.9 - Schizophrenia, unspecified Status: Chronic - Plan Plan: Patient continues to improve no behavior problems denies suicidality please see medication adjustment above Justification for Continued Inpatient Stay: At this time patient would decompensate a place to a lower level of care Discharge Planning: Possible return home with family (1) Schizophrenia Qualifiers: Schizophrenia type: paranoid schizophrenia Qualified Code(s): F20.0 - Paranoid schizophrenia
[2018-03-04] MEDS: amLODIPine 5 MG Tablet PO SCH (09:24)
[2018-03-04] MEDS: Sertraline 50 MG Tablet PO SCH (09:25)
[2018-03-04] MEDS: Divalproex 125 MG Sprinkles Capsule PO SCH ×4 (09:25→20:36)
[2018-03-04] MEDS: QUEtiapine 25 MG Tablet PO SCH ×2 (09:25→20:36)
[2018-03-04] MEDS: Enoxaparin Inj 40 MG/0.4 ML Syringe SQ SCH (16:09)
[2018-03-05] MEDS: amLODIPine 5 MG Tablet PO SCH (08:17)
[2018-03-05] MEDS: Sertraline 50 MG Tablet PO SCH (08:18)
[2018-03-05] MEDS: Divalproex 125 MG Sprinkles Capsule PO SCH ×4 (08:18→21:31)
[2018-03-05] MEDS: QUEtiapine 25 MG Tablet PO SCH ×2 (08:19→21:31)
[2018-03-05] MEDS: Enoxaparin Inj 40 MG/0.4 ML Syringe SQ SCH (17:09)
[2018-03-06] MEDS: Sertraline 50 MG Tablet PO SCH (08:55)
[2018-03-06] MEDS: QUEtiapine 25 MG Tablet PO SCH ×2 (08:55→21:00)
[2018-03-06] MEDS: amLODIPine 5 MG Tablet PO SCH (08:56)
[2018-03-06] MEDS: Divalproex 125 MG Sprinkles Capsule PO SCH ×4 (08:56→21:00)
--- NOTE | 2018-03-06 09:00 | P.PNPSY ---
Subjective Remarks: Please note this is a late entry from 03/05/18. Reviewed electronic medical records and discussed case with staff. Follow-up was conducted in the patient' s room. Staff reports patient has been compliant with medications and has had no behavioral disturbances. Upon follow-up today he is irritated. Find him eating his meal and he states "I want a refund". He reports that he slept fitfully and when asked how he is feeling how his mood is been he responds "I would rather not talk about it". He remains fixated on his meals stating "I want a refund, I should not have to eat this". Mental Status Examination Appearance: Appropriate, Other (In hospital gown) Consciousness: Alert Orientation: Person, Place, Date/Time Motor Activity: Abnormal gait Speech: Hesitant, Slow Language: Adequate Fund of Knowledge: Inadequate Attention and Concentration: Adequate Memory: Unremarkable Mood: Sad Affect: Blunt Thought Process & Associations: Other ([place]) Thought Content: Other Hallucination Type: None (Vague intermittent voices), Auditory Delusion Type: None Suicidal Ideation: No Suicidal Plan: No Suicidal Intention: No Homicidal Ideation: No Homicidal Plan: No Homicidal Intention: No Insight: Poor Judgment: Poor Assessment and Plan - Assessment (1) Schizophrenia Code(s): F20.9 - Schizophrenia, unspecified Status: Chronic - Plan Plan: Patient will be reevaluated tomorrow by the attending psychiatrist. Continue with current treatment plan. Justification for Continued Inpatient Stay: Moving this patient to a less restrictive environment would likely result in decompensation. (1) Schizophrenia Qualifiers: Schizophrenia type: paranoid schizophrenia Qualified Code(s): F20.0 - Paranoid schizophrenia
--- NOTE | 2018-03-06 12:34 | P.PNPSY ---
Subjective Remarks: Reviewed electronic medical records and discussed case with staff. Follow-up was conducted in his room. Patient reports that he is "doing good". He states that he is having some bad dreams. When asked to elaborate on what kind of dreams he reports "sometimes it is war". He reports that his appetite is good. He seems a little irritable today. Mental Status Examination Appearance: Appropriate, Other (In hospital gown) Consciousness: Alert Orientation: Person, Place, Date/Time Motor Activity: Abnormal gait Speech: Hesitant, Slow Language: Adequate Fund of Knowledge: Inadequate Attention and Concentration: Adequate Memory: Unremarkable Mood: Sad Affect: Blunt Thought Process & Associations: Other ([place]) Thought Content: Other Hallucination Type: None (Vague intermittent voices), Auditory Delusion Type: None Suicidal Ideation: No Suicidal Plan: No Suicidal Intention: No Homicidal Ideation: No Homicidal Plan: No Homicidal Intention: No Insight: Poor Judgment: Poor Assessment and Plan - Assessment (1) Schizophrenia Code(s): F20.9 - Schizophrenia, unspecified Status: Chronic - Plan Plan: Patient will be reevaluated tomorrow by the attending psychiatrist. Continue with current treatment plan. Justification for Continued Inpatient Stay: Moving this patient to a less restrictive environment would likely result in decompensation. (1) Schizophrenia Qualifiers: Schizophrenia type: paranoid schizophrenia Qualified Code(s): F20.0 - Paranoid schizophrenia
[2018-03-06] MEDS: Enoxaparin Inj 40 MG/0.4 ML Syringe SQ SCH (17:23)
[2018-03-07] MEDS: Divalproex 125 MG Sprinkles Capsule PO SCH ×4 (08:30→21:00)
[2018-03-07] MEDS: amLODIPine 5 MG Tablet PO SCH (08:30)
[2018-03-07] MEDS: QUEtiapine 25 MG Tablet PO SCH ×2 (08:30→21:00)
[2018-03-07] MEDS: Sertraline 50 MG Tablet PO SCH (08:33)
--- NOTE | 2018-03-07 09:30 | P.PNPSY ---
Subjective Remarks: Patient seen for follow, chart reviewed. Discussion nursing staff reported the patient yesterday was stay hearing rock music and voices, denying any auditory hallucinations today, and states that he is trying to figure out whether he is alive today. Patient was found lying hospital bed sitting up eating breakfast noted B, cooperative. Patient states that he is "thinking about where he will go when I ", continues to be focused on existential questions such as if he has a soul and if God allows us to return. He denies any active suicidal homicidal ideations, denies any current auditory hallucinations but did state hearing "bad rock music" recently, states feeling "a little depressed" was unable to elaborate that his mood at this time is "okay". Patient reports sleeping well, good appetite, agrees to participate in more activities today. Review of Systems All other systems reviewed negative except as stated in HPI Mental Status Examination Appearance: Appropriate, Other (In hospital gown) Consciousness: Alert Orientation: Person, Place, Date/Time Motor Activity: Abnormal gait Speech: Hesitant, Slow Language: Adequate Fund of Knowledge: Inadequate Attention and Concentration: Adequate Memory: Unremarkable Mood: Sad Affect: Blunt Thought Process & Associations: Other ([place]) Thought Content: Other Hallucination Type: None (Vague intermittent voices), Auditory ("Bad rock music ") Delusion Type: None Suicidal Ideation: No Suicidal Plan: No Suicidal Intention: No Homicidal Ideation: No Homicidal Plan: No Homicidal Intention: No Insight: Poor Judgment: Poor Assessment and Plan - Assessment (1) Schizophrenia Code(s): F20.9 - Schizophrenia, unspecified Status: Chronic - Plan Plan: Patient this time noted to be with more reactive affect today, more engaging in conversation, focused on extension questions but denying any active suicidal or homicidal ideations, denying any auditory hallucinations but did report having heard recently music. We will continue current treatment. We will continue to encourage patient to participate in groups and activities. Discharge planning in progress. Justification for Continued Inpatient Stay: At risk of further decompensation at lower level care. (1) Schizophrenia Qualifiers: Schizophrenia type: paranoid schizophrenia Qualified Code(s): F20.0 - Paranoid schizophrenia
[2018-03-07] MEDS: Enoxaparin Inj 40 MG/0.4 ML Syringe SQ SCH (16:21)
[2018-03-08] MEDS: Divalproex 125 MG Sprinkles Capsule PO SCH ×4 (09:21→21:34)
[2018-03-08] MEDS: Sertraline 50 MG Tablet PO SCH (09:21)
[2018-03-08] MEDS: amLODIPine 5 MG Tablet PO SCH (09:21)
[2018-03-08] MEDS: QUEtiapine 25 MG Tablet PO SCH ×2 (09:21→21:34)
--- NOTE | 2018-03-08 09:36 | P.TTN ---
- Patient Problems Problems: 1. Discharge planning 2. Medication compliance 3. Knowledge deficit 4. Lack of coping skills - Progress Toward Goals Provider Present: Dr. Marty Flores Provider Input: 03/08/2018: patient has no medication changes, continues with mood swings regarding his life span. 03/07/2018: patient is stable on medication, with no behavior just random mood shifts. Pt started on antidepressant on Tuesday. Increased Depakote which caused him to be more sedated. SNF placement pending. 03/01/18: John Flores MD; pt being titrated on Zoloft with goal of pt stabilization. Nurse(s) Present: JARED Preston Nurse Input: 03/08/2018 no behavior, patient is eating meals and taking medication. 03/07/2018; no behavior, eating meals and taking medications. Pt is med compliant , cooperative, no behavioral issues, not taking enough fluids orally which is cause for concern. 03/01/18: John Palencia RN; pt is compliant with crushed medications in his food, continues to require moderate assist with ADLS. Psychiatric Counselors Present: Danielle Mejia LCSW, Shayne Mulligan Jr., [facility], Patsy Lima, [facility], Other Psychiatric Therapist Input: 03/08/2018; counselor will continue reaching out to [facility] fci providers after several have already denied patient due to admitting issues with SI. 03/07/2018; counselor continues to fax packages to skill nursing providers under [employer] medicare; however several have denied due to history and current SI issues. [facility] will not take him back due to SI. 03/01/18: John Garner; pt has not made references to SI or [facility] Garner to pursue snf placements. Group Spec/RT/OT/MENDEZ Present: Monik Burton, JACOB, VANESSA Wong, Eldon Barnhart, OT Group Spec/RT/OT/MENDEZ Input: 03/08/2018; per RT patient continues to be limited with group participation due to his medical issues. 03/07/2018; per RT patient comes to selective groups, if any due to his medical condition at the time groups are offerred. Pt is unable to tolerate much activity due to limited mobility and ROM. he does not participate. 03/01/18: Pt is unable to tolerate group activities. Occupational Therapist Input: 03/01/18: Pt requires moderate assist for ADLS, per consultation with nursing staff. - Discharge Plan Per treating medical staff; pt will require snf placement per his medical condition and ability, Patsy to follow-up for appropriate discharge for pt. - Documentation Scribe: Eldon Barnhart MS, OTR Teaching Recipient: Patient
--- NOTE | 2018-03-08 16:19 | P.PNPSY ---
Subjective Remarks: Patient seen for follow up, chart reviewed. Discussion nursing staff reported patient compliant with treatment, no behavioral disturbances. Patient was found lying on hospital bed, noted to be calm but irritable and somewhat dismissive today. He states that he has and come back but was reassured that he did not which he was noted to be upset. He continues to focus on existential questions and whether he has a soul. He denies any physical complaints, was encouraged to participate in groups and spend time outside of his room but refused and wanted to watch television in his room. He denied any AH or SI. Review of Systems All other systems reviewed negative except as stated in HPI Mental Status Examination Appearance: Appropriate, Other (In hospital gown) Consciousness: Alert Orientation: Person, Place, Date/Time Motor Activity: Abnormal gait Speech: Hesitant, Slow Language: Adequate Fund of Knowledge: Inadequate Attention and Concentration: Adequate Memory: Unremarkable Mood: Other ("ok") Affect: Irritable (slightly), Blunt Thought Process & Associations: Other ([place]) Thought Content: Preoccupations (with having a soul and if he had ), Other Hallucination Type: None (Vague intermittent voices), Auditory ("Bad rock music ") Delusion Type: None Suicidal Ideation: No Suicidal Plan: No Suicidal Intention: No Homicidal Ideation: No Homicidal Plan: No Homicidal Intention: No Insight: Poor Judgment: Poor Assessment and Plan - Assessment (1) Schizophrenia Code(s): F20.9 - Schizophrenia, unspecified Status: Chronic - Plan Plan: Patient today noted to be upset and focused on existential content but denied any SI nor any perceptual disturbances. Patient at times requires support and redirection. No behavrioal disturbances. Continue current treatment, continue to monitor mood and behavior. Discharge planning in progress. Justification for Continued Inpatient Stay: At risk of further decompensation a lower level care. (1) Schizophrenia Qualifiers: Schizophrenia type: paranoid schizophrenia Qualified Code(s): F20.0 - Paranoid schizophrenia
[2018-03-08] MEDS: Enoxaparin Inj 40 MG/0.4 ML Syringe SQ SCH (16:32)
[2018-03-09] MEDS: QUEtiapine 25 MG Tablet PO SCH ×2 (08:30→22:04)
[2018-03-09] MEDS: Divalproex 125 MG Sprinkles Capsule PO SCH ×4 (08:30→22:04)
[2018-03-09] MEDS: Sertraline 50 MG Tablet PO SCH (08:31)
[2018-03-09] MEDS: amLODIPine 5 MG Tablet PO SCH (08:31)
--- NOTE | 2018-03-09 14:58 | P.DIET ---
Nutritional Evaluation Type of nutrition evaluation: follow-up Nutrition consult regarding: Diet Evaluation Nutrition screening: [facility] [place] comments: 02/23/18 [facility] Poor PO Intake Subjective Subjective Comments: Actual Ht of 190.5cm from a previous admission used for assessment here. Pt has no complaints regarding is meals and reports he is drinking the Ensure Enlive. Objective - Diagnosis Schizophrenia - Objective [place] body weight: 89 kg % IBW: 77 Body Weight Used for Calculations: Actual (68.2kg) Energy Needs - Lower Range (kCal/kg): 35 Energy Needs - Upper Range (kCal/kg): 40 Lower Limit kCal/kg (kCals): 2,387 Upper Limit kCal/kg (kCals): 2,728 Lower Limit Protein Factor (Grams per Kg): 1.2 Upper Limit Protein Factor (Grams per Kg): 1.5 Lower Protein Needs (Protein): 82 Upper Protein Needs (Protein): 102 Dietitian Reviewed in Medical Record: Current diet, Curent medications, Intake & Output, Labs, Medical history Diet Order: Regular Oral Diet Intake Amount: Fair 50-75% Objective Comments: PMH: Dementia, Hypothyroidism, Parkinsons Disease, Schizophrenia, Smoker HgA1C 6.0, POC glucose 234(03/08) Meds Include: Norvasc, B12, Depakote, Ativan, Seroquel, Zoloft LBM 03/07 Feeding - Current PO Supplement Current Supplement: Ensure Enlive Current Frequency of Supplement: Three times a day Current kCals Provided by Supplement: 350 Current Protein Provided by Supplement: 20 Assessment Assessment: Pt is follow-up for [facility] w/ poor po intake. PO intake now improved w/50% or greater for most meals. Pt tolerating diet now w/Mech Soft w/chopped meat and gravy per pt request. A1C and Glucose noted. Plan to replace Ensure Enlive TID w / Glucerna Shakes TID-monitor pt acceptance. Wt changes noted. Dietitian following. Recommendations: 1. Mech Soft w/chopped meat and gravy per pt request 2. Plan to replace Ensure Enlive TID w/ Glucerna Shakes TID-monitor pt acceptance 3. Dietitian following Dietitian to Monitor: Lab values, Glucose level, Supplement acceptance, Intake & Output, Weight change, PO Intake, Medical course
[2018-03-09] MEDS: Enoxaparin Inj 40 MG/0.4 ML Syringe SQ SCH (15:58)
--- NOTE | 2018-03-09 16:42 | P.PNPSY ---
Subjective Remarks: Patient seen for follow up, chart reviewed. Discussion nursing staff reported patient calm and cooperative, compliant with medications, no religous content today, had visit with sister. Patient was found lying on hospital bed, calm and cooperative, states feeling "good", denies any physical complaints, reports having slept well, denies any perceptual disturbances, denies any SI or HI. He agrees to participate in groups later today. Review of Systems All other systems reviewed negative except as stated in HPI Mental Status Examination Appearance: Appropriate, Other (In hospital gown) Consciousness: Alert Orientation: Person, Place, Date/Time Motor Activity: Abnormal gait Speech: Hesitant, Slow Language: Adequate Fund of Knowledge: Inadequate Attention and Concentration: Adequate Memory: Unremarkable Mood: Appropriate Affect: Appropriate Thought Process & Associations: Other ([place]) Thought Content: Other Hallucination Type: None Delusion Type: None Suicidal Ideation: No Suicidal Plan: No Suicidal Intention: No Homicidal Ideation: No Homicidal Plan: No Homicidal Intention: No Insight: Poor Judgment: Poor Assessment and Plan - Assessment (1) Schizophrenia Code(s): F20.9 - Schizophrenia, unspecified Status: Chronic - Plan Plan: Patient noted to be in good spirits today, had visit with sister which reports went well. He denies any SI or HI, nor any perceptual disturbances. Continue current treatment, continue to monitor mood and behavior. Discharge planning in progress. Justification for Continued Inpatient Stay: At risk of further decompensation a lower level care. (1) Schizophrenia Qualifiers: Schizophrenia type: paranoid schizophrenia Qualified Code(s): F20.0 - Paranoid schizophrenia
[2018-03-10] MEDS: amLODIPine 5 MG Tablet PO SCH (08:38)
[2018-03-10] MEDS: QUEtiapine 25 MG Tablet PO SCH ×2 (08:38→20:14)
[2018-03-10] MEDS: Divalproex 125 MG Sprinkles Capsule PO SCH ×4 (08:38→20:14)
[2018-03-10] MEDS: Sertraline 50 MG Tablet PO SCH (08:39)
--- NOTE | 2018-03-10 11:46 | P.PNPSY ---
Subjective Remarks: Patient seen for follow, chart reviewed. Discussion nursing staff reported the patient slept well, cooperative, no behavioral issues. Patient was found working with physical therapy prior to interview and subsequently found lying hospital bed noted to be somewhat irritable today during interview stating "why do you keep asking the same questions". Patient states her mood has been "good " denies any feelings of depression, denies any perceptional disturbances, denies any suicidal homicidal ideations. Patient was encouraged to participate in groups and activities which she acknowledged. Patient denies any physical complaints other than some soreness from his feet from working with physical therapy this morning. Review of Systems All other systems reviewed negative except as stated in HPI Mental Status Examination Appearance: Appropriate, Other (In hospital gown) Consciousness: Alert Orientation: Person, Place, Date/Time Motor Activity: Abnormal gait Speech: Slow Language: Adequate Fund of Knowledge: Inadequate Attention and Concentration: Adequate Memory: Unremarkable Mood: Appropriate Affect: Appropriate Thought Process & Associations: Other ([place]) Thought Content: Other Hallucination Type: None Delusion Type: None Suicidal Ideation: No Suicidal Plan: No Suicidal Intention: No Homicidal Ideation: No Homicidal Plan: No Homicidal Intention: No Insight: Poor Judgment: Poor Assessment and Plan - Assessment (1) Schizophrenia Code(s): F20.9 - Schizophrenia, unspecified Status: Chronic - Plan Plan: Patient this time noted some irritability, but denying any depressed mood, denying any perceptional services, suicidal homicidal ideations. Patient to continue current treatment. Continue to work with physical therapy. Patient noted to have some tremor after working with physical therapy this morning. We will order repeat labs to monitor CBC, CMP, CK level. Continue to encourage patient to dissipate in groups and activities. Discharge planning in progress. Justification for Continued Inpatient Stay: At risk of further decompensation a lower level of care. (1) Schizophrenia Qualifiers: Schizophrenia type: paranoid schizophrenia Qualified Code(s): F20.0 - Paranoid schizophrenia
[2018-03-10 13:04] LABS: Baso % (Auto) 0.7 % (0.0-2.0); Eos # (Auto) 0.2 th/mm3 (0.0-0.4); Eos % (Auto) 4.1 % (0.0-4.0); Hematocrit 38.9 % (39.0-51.0); Hemoglobin 12.9 gm/dL (13.0-17.0); Lymph # (Auto) 0.9 th/mm3 (1.0-4.8); Mean Corpuscular HGB Conc 33.1 % (32.0-36.0); Mean Corpuscular Hemoglobin 30.8 pg (27.0-34.0); Mean Platelet Volume 8.9 fL (7.0-11.0); Mono # (Auto) 0.5 th/mm3 (0.0-0.9); Mono % (Auto) 10.7 % (0.0-8.0); Neut # (Auto) 3.4 th/mm3 (1.8-7.7); Neut % (Auto) 67.5 % (16.0-70.0); Platelet Count 164 th/mm3 (150-450); Red Blood Count 4.19 mil/mm3 (4.50-5.90); Red Cell Distribution Width 15.2 % (11.6-17.2)
[2018-03-10 13:24] LABS: Alanine Aminotransferase 26 U/L (12-78); Albumin 2.8 g/dL (3.4-5.0); Anion Gap 9 meq/L (5-15); Aspartate Aminotransferase 21 U/L (15-37); Blood Urea Nitrogen 17 mg/dL (7-18); Carbon Dioxide 26.3 meq/L (21.0-32.0); Chloride 105 meq/L (98-107); Glomerular Filtration Rate Greater Than 89 mL/min (>89); Glucose,Random 142 mg/dL (74-106); Potassium 4.1 meq/L (3.5-5.1); Sodium 140 meq/L (136-145)
[2018-03-10 13:27] LABS: Alkaline Phosphatase 88 U/L (45-117); Creatine Kinase 115 U/L (39-308); Total Protein 6.7 g/dL (6.4-8.2)
[2018-03-10 13:44] LABS: Creatine Kinase MB 1.1 ng/mL (0.5-3.6)
[2018-03-10] MEDS: Enoxaparin Inj 40 MG/0.4 ML Syringe SQ SCH (17:31)
[2018-03-11] MEDS: QUEtiapine 25 MG Tablet PO SCH ×2 (08:19→20:57)
[2018-03-11] MEDS: Divalproex 125 MG Sprinkles Capsule PO SCH ×4 (08:19→20:57)
[2018-03-11] MEDS: Sertraline 50 MG Tablet PO SCH (08:19)
[2018-03-11] MEDS: amLODIPine 5 MG Tablet PO SCH (08:19)
[2018-03-11] MEDS: Enoxaparin Inj 40 MG/0.4 ML Syringe SQ SCH (15:22)
--- NOTE | 2018-03-11 16:20 | P.PNPSY ---
Subjective Remarks: Patient seen for follow up; chart reviewed. Discussion with nursing staff reported that patient is calm, quiet, eating and drinking well, compliant with medications, had visited with sister. Patient was found lying hospital and noted be calm and cooperative. Patient states he is feeling "good" reports his mood as being "okay" denying any perceptional services, denying suicidal homicidal ideations. Patient reports eating and drinking well with no physical complaints at this time. Patient reports having been visited by sister but did not elaborate on the visit. Review of Systems All other systems reviewed negative except as stated in HPI Mental Status Examination Appearance: Appropriate, Other (In hospital gown) Consciousness: Alert Orientation: Person, Place, Date/Time Motor Activity: Abnormal gait Speech: Slow Language: Adequate Fund of Knowledge: Inadequate Attention and Concentration: Adequate Memory: Unremarkable Mood: Appropriate Affect: Appropriate Thought Process & Associations: Other ([place]) Thought Content: Other Hallucination Type: None Delusion Type: None Suicidal Ideation: No Suicidal Plan: No Suicidal Intention: No Homicidal Ideation: No Homicidal Plan: No Homicidal Intention: No Insight: Poor Judgment: Poor Assessment and Plan - Assessment (1) Schizophrenia Code(s): F20.9 - Schizophrenia, unspecified Status: Chronic - Plan Plan: Patient continues with stable mood, denying any depressed mood denying any perceptional disturbances, denying any suicidal homicidal ideations. We will continue current treatment. We will continue to monitor mood and behavior. Discharge planning in progress. Justification for Continued Inpatient Stay: At risk of further decompensation a lower level of care. (1) Schizophrenia Qualifiers: Schizophrenia type: paranoid schizophrenia Qualified Code(s): F20.0 - Paranoid schizophrenia
[2018-03-12] MEDS: amLODIPine 5 MG Tablet PO SCH (08:16)
[2018-03-12] MEDS: Sertraline 50 MG Tablet PO SCH (08:16)
[2018-03-12] MEDS: QUEtiapine 25 MG Tablet PO SCH ×2 (08:16→21:16)
[2018-03-12] MEDS: Divalproex 125 MG Sprinkles Capsule PO SCH ×4 (08:16→21:17)
[2018-03-12] MEDS: Enoxaparin Inj 40 MG/0.4 ML Syringe SQ SCH (16:09)
--- NOTE | 2018-03-12 16:24 | P.PNPSY ---
Subjective Remarks: Patient seen for follow-up, chart reviewed. Discussion with nursing staff reported the patient no behavioral issues and ambulating on his own cooperation with staff. Patient was found lying hospital bed noted B, cooperative. Patient noted to have adequate eye contact, stating that he is feeling "good" denies any physical complaints at this time agrees to attend activity tomorrow for fresh air. Patient denies any physical complaints at this time. Patient denies any suicidal homicidal ideation, denies feeling sad or depressed. Denies any perceptional disturbances. Review of Systems All other systems reviewed negative except as stated in HPI Mental Status Examination Appearance: Appropriate, Other (In hospital gown) Consciousness: Alert Orientation: Person, Place, Date/Time Motor Activity: Abnormal gait Speech: Slow Language: Adequate Fund of Knowledge: Inadequate Attention and Concentration: Adequate Memory: Unremarkable Mood: Appropriate Affect: Appropriate Thought Process & Associations: Other ([place]) Thought Content: Other Hallucination Type: None Delusion Type: None Suicidal Ideation: No Suicidal Plan: No Suicidal Intention: No Homicidal Ideation: No Homicidal Plan: No Homicidal Intention: No Insight: Poor Judgment: Poor Assessment and Plan - Assessment (1) Schizophrenia Code(s): F20.9 - Schizophrenia, unspecified Status: Chronic - Plan Plan: Patient noted with improved mood, noted with more affect today. Patient denying any perceptual services or delusions, denies any SI or HI. Continue current treatment. Continue to monitor mood and behavior. Continue to encourage patient to participate in groups and activities. Discharge planning in progress. Justification for Continued Inpatient Stay: At risk of further decompensation a lower level of care. (1) Schizophrenia Qualifiers: Schizophrenia type: paranoid schizophrenia Qualified Code(s): F20.0 - Paranoid schizophrenia
[2018-03-13] MEDS: Sertraline 50 MG Tablet PO SCH (09:08)
[2018-03-13] MEDS: Divalproex 125 MG Sprinkles Capsule PO SCH ×4 (09:08→20:33)
[2018-03-13] MEDS: amLODIPine 5 MG Tablet PO SCH (09:08)
[2018-03-13] MEDS: QUEtiapine 25 MG Tablet PO SCH ×2 (09:08→20:33)
[2018-03-13] MEDS: Enoxaparin Inj 40 MG/0.4 ML Syringe SQ SCH (15:51)
--- NOTE | 2018-03-13 16:52 | P.PNPSY ---
Subjective Remarks: Patient seen for follow, chart reviewed. Discussion nursing staff reported the patient noted to be more conversant, more cooperative, visited with sister today. Patient was found lying hospital bed noted be good spirits. Patient states that he is feeling good reports having attended group outside today which she enjoyed. Patient reports eating and drinking well denies any depressed mood, denies any suicidal homicidal ideations, denies any perceptional disturbances. Review of Systems All other systems reviewed negative except as stated in HPI Mental Status Examination Appearance: Appropriate, Other (In hospital gown) Consciousness: Alert Orientation: Person, Place, Date/Time Motor Activity: Abnormal gait Speech: Slow Language: Adequate Fund of Knowledge: Inadequate Attention and Concentration: Adequate Memory: Unremarkable Mood: Appropriate Affect: Appropriate Thought Process & Associations: Other ([place]) Thought Content: Other Hallucination Type: None Delusion Type: None Suicidal Ideation: No Suicidal Plan: No Suicidal Intention: No Homicidal Ideation: No Homicidal Plan: No Homicidal Intention: No Insight: Poor Judgment: Poor Assessment and Plan - Assessment (1) Schizophrenia Code(s): F20.9 - Schizophrenia, unspecified Status: Chronic - Plan Plan: Patient continues to continue with stable mood, denies feeling depressed, denies any suicidal homicidal ideations, denies any perceptional services. Patient engaging appropriate with staff, has appropriate eye contact and noted to be participating in groups. We will continue current treatment. We will continue to monitor mood and behavior. Discharge planning a progress. Justification for Continued Inpatient Stay: At risk of further decompensation a lower level of care. (1) Schizophrenia Qualifiers: Schizophrenia type: paranoid schizophrenia Qualified Code(s): F20.0 - Paranoid schizophrenia
[2018-03-14] MEDS: QUEtiapine 25 MG Tablet PO SCH ×2 (08:38→21:00)
[2018-03-14] MEDS: Divalproex 125 MG Sprinkles Capsule PO SCH ×4 (08:38→21:00)
[2018-03-14] MEDS: Sertraline 50 MG Tablet PO SCH (08:39)
[2018-03-14] MEDS: amLODIPine 5 MG Tablet PO SCH (08:39)
--- NOTE | 2018-03-14 10:59 | P.PNPSY ---
Subjective Remarks: Patient seen for follow, chart reviewed. Discussion nursing staff reported the patient has a compliant with treatment, was given Ativan this morning as patient appeared to nursing to have had some tonic movements. Patient was found lying hospital bed noted B, cooperative. No signs of tremor or tonic- clonic activity noted during interview. Patient states that he is feeling "good " reports sleeping well, denying any physical complaints at this time. Patient agreeable to attend activities, denies any perceptional services or delusions reports his mood as being "good". After interview patient went to participate in group activity. Review of Systems All other systems reviewed negative except as stated in HPI Mental Status Examination Appearance: Appropriate, Other (In hospital gown) Consciousness: Alert Orientation: Person, Place, Date/Time Motor Activity: Abnormal gait Speech: Slow Language: Adequate Fund of Knowledge: Inadequate Attention and Concentration: Adequate Memory: Unremarkable Mood: Appropriate Affect: Appropriate Thought Process & Associations: Other ([place]) Thought Content: Other Hallucination Type: None Delusion Type: None Suicidal Ideation: No Suicidal Plan: No Suicidal Intention: No Homicidal Ideation: No Homicidal Plan: No Homicidal Intention: No Insight: Poor Judgment: Poor Assessment and Plan - Assessment (1) Schizophrenia Code(s): F20.9 - Schizophrenia, unspecified Status: Chronic - Plan Plan: Patient this time continues with stable mood, denying any depressive manic or psychotic symptoms, denying any perceptual services or delusions. We will continue current treatment. We will continue to monitor mood and behavior. We will continue to encourage patient to participate in groups and activities as well as to work with physical therapy. Discharge planning in progress. Justification for Continued Inpatient Stay: At risk of further decompensation a lower level care. (1) Schizophrenia Qualifiers: Schizophrenia type: paranoid schizophrenia Qualified Code(s): F20.0 - Paranoid schizophrenia
[2018-03-14] MEDS: Enoxaparin Inj 40 MG/0.4 ML Syringe SQ SCH (18:27)
[2018-03-15] MEDS: Divalproex 125 MG Sprinkles Capsule PO SCH ×4 (09:36→21:01)
[2018-03-15] MEDS: QUEtiapine 25 MG Tablet PO SCH ×2 (09:36→21:01)
[2018-03-15] MEDS: amLODIPine 5 MG Tablet PO SCH (09:36)
[2018-03-15] MEDS: Sertraline 50 MG Tablet PO SCH (09:36)
--- NOTE | 2018-03-15 17:18 | P.PNPSY ---
Subjective Remarks: Patient seen in his room with nurse Eris sitting on the edge of his bed eating his dinner, chart reviewed, patient complaint medications Review of Systems All other systems reviewed negative except as stated in HPI Mental Status Examination Appearance: Appropriate, Other (In hospital gown) Consciousness: Alert Orientation: Person, Place, Date/Time Motor Activity: Abnormal gait Speech: Slow Language: Adequate Fund of Knowledge: Inadequate Attention and Concentration: Adequate Memory: Unremarkable Mood: Appropriate Affect: Appropriate Thought Process & Associations: Other ([place]) Thought Content: Other Hallucination Type: None Delusion Type: None Suicidal Ideation: No Suicidal Plan: No Suicidal Intention: No Homicidal Ideation: No Homicidal Plan: No Homicidal Intention: No Insight: Poor Judgment: Poor Assessment and Plan - Assessment (1) Schizophrenia Code(s): F20.9 - Schizophrenia, unspecified Status: Chronic - Plan Plan: Patient remains somewhat vigilant and paranoid but overall calm, compliant medications, for now continue treatment Justification for Continued Inpatient Stay: At this time patient would decompensate a place to a lower level of care Discharge Planning: To be determined (1) Schizophrenia Qualifiers: Schizophrenia type: paranoid schizophrenia Qualified Code(s): F20.0 - Paranoid schizophrenia
[2018-03-15] MEDS: Enoxaparin Inj 40 MG/0.4 ML Syringe SQ SCH (17:56)
[2018-03-16] MEDS: Sertraline 50 MG Tablet PO SCH (08:29)
[2018-03-16] MEDS: QUEtiapine 25 MG Tablet PO SCH ×2 (08:29→22:31)
[2018-03-16] MEDS: amLODIPine 5 MG Tablet PO SCH (08:29)
[2018-03-16] MEDS: Divalproex 125 MG Sprinkles Capsule PO SCH ×4 (08:29→22:31)
--- NOTE | 2018-03-16 13:25 | P.TTN ---
- Patient Problems Problems: 1. Discharge planning 2. Medication compliance 3. Knowledge deficit 4. Lack of coping skills - Progress Toward Goals Provider Present: Dr. Marty Flores Provider Input: 03/13/18: pt continues to show progress, lessening symptoms, counselor and pt's family member seeking appropriate placement. 03/08/2018: patient has no medication changes, continues with mood swings regarding his life span. 03/07/2018: patient is stable on medication, with no behavior just random mood shifts. Pt started on antidepressant on Tuesday. Increased Depakote which caused him to be more sedated. SNF placement pending. 03/01/18: John Flores MD; pt being titrated on Zoloft with goal of pt stabilization. Nurse(s) Present: JARED Preston Nurse Input: 03/13/18: No nurse present, per floor nurse; pt is cooperative, eating meals, compliant with medication. 03/08/2018 no behavior, patient is eating meals and taking medication. 03/07/2018; no behavior, eating meals and taking medications. Pt is med compliant , cooperative, no behavioral issues, not taking enough fluids orally which is cause for concern. 03/01/18: John Palencia RN; pt is compliant with crushed medications in his food, continues to require moderate assist with ADLS. Psychiatric Counselors Present: aDnielle Mejia LCSW, Shayne Mulligan Jr., [facility], Patsy L[place], [facility], Other Psychiatric Therapist Input: 03/13/18: Per OTR and counselor; counselor continues to seek placement at snf in conjunction with family member (pt's sister), based on insurance policy restrictions. 03/08/2018; counselor will continue reaching out to [facility] long term providers after several have already denied patient due to admitting issues with SI. 03/07/2018; counselor continues to fax packages to skill nursing providers under [facility] medicare; however several have denied due to history and current SI issues. [facility] will not take him back due to SI. 03/01/18: John Garner; pt has not made references to SI or [facility]. Garner to pursue snf placements. Group Spec/RT/OT/MENDEZ Present: Monik Burton, JACOB, VANESSA Wong, Eldon Barnhart, OT Group Spec/RT/OT/MENDEZ Input: 03/13/18: Pt participating in PT and OT, he is cooperative, enthusiastic, making significant progress with increased independence, increased distances and safety awareness during transfers, adls, ambulation. 03/08/2018; per RT patient continues to be limited with group participation due to his medical issues. 03/07/2018; per RT patient comes to selective groups, if any due to his medical condition at the time groups are offerred. Pt is unable to tolerate much activity due to limited mobility and ROM. he does not participate. 03/01/18: Pt is unable to tolerate group activities. Occupational Therapist Input: 03/13/18: Pt requires CG during ADLS. 03/01/18: Pt requires moderate assist for ADLS, per consultation with nursing staff. - Discharge Plan Per treating medical staff; pt will require snf placement per his medical condition and ability, Patsy to follow-up for appropriate discharge for pt. - Documentation Scribe: Eldon Barnhart MS, OTR Teaching Recipient: Patient
--- NOTE | 2018-03-16 14:40 | P.DIET ---
Nutritional Evaluation Type of nutrition evaluation: follow-up Nutrition consult regarding: Diet Evaluation Nutrition screening: MDC (MDC for Poor PO Intake) Subjective Subjective Comments: Actual Ht of 190.5cm from a previous admission used for assessment here. Pt has no complaints regarding is meals and reports he is drinking the Ensure Enlive. Objective - Diagnosis Schizophrenia - Objective % IBW: 77 Body Weight Used for Calculations: Actual (68.2kg) Energy Needs - Lower Range (kCal/kg): 35 Energy Needs - Upper Range (kCal/kg): 40 Lower Limit kCal/kg (kCals): 2,387 Upper Limit kCal/kg (kCals): 2,728 Lower Limit Protein Factor (Grams per Kg): 1.2 Upper Limit Protein Factor (Grams per Kg): 1.5 Lower Protein Needs (Protein): 82 Upper Protein Needs (Protein): 102 Dietitian Reviewed in Medical Record: Current diet, Curent medications, Intake & Output, Labs Diet Order: Mechanical Soft Oral Diet Intake Amount: Excellent 90%+ Feeding - Current PO Supplement Current Supplement: Ensure Enlive Current Frequency of Supplement: Three times a day Current kCals Provided by Supplement: 350 Current Protein Provided by Supplement: 20 Assessment Assessment: Pt remains on a Mechanical Soft, Regular diet. Was receiving Enlive TID, but recently switched to Glucerna Shakes. A1C 6.0. BG levels reviewed, only 1 high BG level seen. Pt is eating well, 100%. He is eating and drinking his oral nutrition supplements. RD following. Recommendations: 1. Continue current POC. Dietitian to Monitor: Lab values, Supplement acceptance, Intake & Output, Diet tolerance, Weight change, PO Intake, Medical course
--- NOTE | 2018-03-16 16:41 | P.PNPSY ---
Subjective Remarks: Patient seen for follow up, chart reviewed. Discussion with nursing staff reported patient continues with adequate behavioral control, compliant with medications. Patient was found sitting on hospital bed, noted to be calm and cooperative. Patient states feeling "good" denies any physical complaints, participating in groups, pleasant and cooperative with staff. Patinet denies any depressive mood, denies any perceptual disturbances, denies any SI or HI. Patient presented to mental health court which patient was maintained on a continuance. Review of Systems All other systems reviewed negative except as stated in HPI Mental Status Examination Appearance: Appropriate, Other (In hospital gown) Consciousness: Alert Orientation: Person, Place, Date/Time Motor Activity: Abnormal gait Speech: Slow Language: Adequate Fund of Knowledge: Inadequate Attention and Concentration: Adequate Memory: Unremarkable Mood: Appropriate Affect: Appropriate Thought Process & Associations: Other ([place]) Thought Content: Other Hallucination Type: None Delusion Type: None Suicidal Ideation: No Suicidal Plan: No Suicidal Intention: No Homicidal Ideation: No Homicidal Plan: No Homicidal Intention: No Insight: Poor Judgment: Poor Assessment and Plan - Assessment (1) Schizophrenia Code(s): F20.9 - Schizophrenia, unspecified Status: Chronic - Plan Plan: Patient presented to mental health court, on a continuance awaiting placement at an appropriate facility that can meet patient's needs. Patient with stable mood, no perceptual disturbances, interacting adequately. Continue current treatment, continue to monitor mood and behavior. Discharge planning in progress. Justification for Continued Inpatient Stay: At risk for further decompensation at lower level of care. (1) Schizophrenia Qualifiers: Schizophrenia type: paranoid schizophrenia Qualified Code(s): F20.0 - Paranoid schizophrenia
[2018-03-16] MEDS: Enoxaparin Inj 40 MG/0.4 ML Syringe SQ SCH (17:20)
[2018-03-17] MEDS: Divalproex 125 MG Sprinkles Capsule PO SCH ×4 (09:43→22:02)
[2018-03-17] MEDS: Sertraline 50 MG Tablet PO SCH (09:44)
[2018-03-17] MEDS: amLODIPine 5 MG Tablet PO SCH (09:44)
[2018-03-17] MEDS: QUEtiapine 25 MG Tablet PO SCH ×2 (09:44→22:03)
[2018-03-17] MEDS: Enoxaparin Inj 40 MG/0.4 ML Syringe SQ SCH (17:42)
--- NOTE | 2018-03-17 18:50 | P.PNPSY ---
Subjective Remarks: Patient seen for follow up; chart review. Discussion with nursing staff reported that patient with no behavioral issues. Patient was found sitting up on hospital bed,, noted to be in good spirits, states feeling "good", having had some sleep difficulties, good appetite, mood being good and denying any perceptual disturbances. He denies any suicidal or homicidal ideations. He mentions working with physical therapy today. Patient after interview got up and walked himself to day room. Review of Systems All other systems reviewed negative except as stated in HPI Mental Status Examination Appearance: Appropriate Consciousness: Alert Orientation: Person, Place, Date/Time Motor Activity: Abnormal gait Speech: Slow Language: Adequate Fund of Knowledge: Inadequate Attention and Concentration: Adequate Memory: Unremarkable Mood: Appropriate Affect: Appropriate Thought Process & Associations: Other ([place]) Thought Content: Appropriate Hallucination Type: None Delusion Type: None Suicidal Ideation: No Suicidal Plan: No Suicidal Intention: No Homicidal Ideation: No Homicidal Plan: No Homicidal Intention: No Insight: Poor Judgment: Poor Assessment and Plan - Assessment (1) Schizophrenia Code(s): F20.9 - Schizophrenia, unspecified Status: Chronic - Plan Plan: Patient with no behavioral disturbances, noted with stable mood, participating in groups and ambulatory. Patient was visited by health and rehab facility today. Continue current treatment, continue to monitor mood and behavior. Discharge planning in progress. Justification for Continued Inpatient Stay: At risk for further decompensation at lower level of care. (1) Schizophrenia Qualifiers: Schizophrenia type: paranoid schizophrenia Qualified Code(s): F20.0 - Paranoid schizophrenia
[2018-03-18] MEDS: Divalproex 125 MG Sprinkles Capsule PO SCH ×4 (08:43→21:43)
[2018-03-18] MEDS: QUEtiapine 25 MG Tablet PO SCH ×2 (08:44→21:43)
[2018-03-18] MEDS: amLODIPine 5 MG Tablet PO SCH (08:44)
[2018-03-18] MEDS: Sertraline 50 MG Tablet PO SCH (08:44)
[2018-03-18] MEDS: Enoxaparin Inj 40 MG/0.4 ML Syringe SQ SCH (17:45)
--- NOTE | 2018-03-18 18:31 | P.PNPSY ---
Subjective Remarks: Patient was seen and case discussed with nursing. Today patient's chief complaint is insomnia. He is compliant with medications. Behaving well on the unit. No outbursts. Complaining of auditory hallucinations which are "good." Denies any paranoia Mental Status Examination Appearance: Appropriate Consciousness: Alert Orientation: Person, Place, Date/Time Motor Activity: Abnormal gait Speech: Slow Language: Adequate Fund of Knowledge: Inadequate Attention and Concentration: Adequate Memory: Unremarkable Mood: Appropriate Affect: Appropriate Thought Process & Associations: Other ([place]) Thought Content: Appropriate, Hallucinations Hallucination Type: Auditory Delusion Type: None Suicidal Ideation: No Suicidal Plan: No Suicidal Intention: No Homicidal Ideation: No Homicidal Plan: No Homicidal Intention: No Insight: Poor Judgment: Poor Assessment and Plan - Assessment (1) Schizophrenia Code(s): F20.9 - Schizophrenia, unspecified Status: Chronic - Plan Plan: Continue current treatment plan Justification for Continued Inpatient Stay: Patient would decompensate in a less restrictive setting (1) Schizophrenia Qualifiers: Schizophrenia type: paranoid schizophrenia Qualified Code(s): F20.0 - Paranoid schizophrenia
[2018-03-19] MEDS: Divalproex 125 MG Sprinkles Capsule PO SCH ×4 (08:50→20:55)
[2018-03-19] MEDS: QUEtiapine 25 MG Tablet PO SCH ×2 (08:53→20:54)
[2018-03-19] MEDS: amLODIPine 5 MG Tablet PO SCH (08:54)
[2018-03-19] MEDS: Sertraline 50 MG Tablet PO SCH (08:56)
--- NOTE | 2018-03-19 15:23 | P.PNPSY ---
Subjective Remarks: Patient was seen and case discussed with nursing. Patient is looking forward to a discharge next week. He is behaving well on the unit. Has not had any outbursts. His fusilli lying in his bed throughout the day absorbed in his own thoughts. Compliant with medications. Denies suicidal or homicidal ideation intent or plan Mental Status Examination Appearance: Appropriate Consciousness: Alert Orientation: Person, Place, Date/Time Motor Activity: Abnormal gait Speech: Slow Language: Adequate Fund of Knowledge: Inadequate Attention and Concentration: Adequate Memory: Unremarkable Mood: Appropriate Affect: Appropriate Thought Process & Associations: Other ([place]) Thought Content: Appropriate, Hallucinations Hallucination Type: Auditory Delusion Type: None Suicidal Ideation: No Suicidal Plan: No Suicidal Intention: No Homicidal Ideation: No Homicidal Plan: No Homicidal Intention: No Insight: Poor Judgment: Poor Assessment and Plan - Assessment (1) Schizophrenia Code(s): F20.9 - Schizophrenia, unspecified Status: Chronic - Plan Plan: Continue current treatment plan Justification for Continued Inpatient Stay: Patient would decompensate in a less restrictive setting (1) Schizophrenia Qualifiers: Schizophrenia type: paranoid schizophrenia Qualified Code(s): F20.0 - Paranoid schizophrenia
[2018-03-19] MEDS: Enoxaparin Inj 40 MG/0.4 ML Syringe SQ SCH (16:13)
[2018-03-20] MEDS: amLODIPine 5 MG Tablet PO SCH (09:32)
[2018-03-20] MEDS: QUEtiapine 25 MG Tablet PO SCH ×2 (09:32→21:56)
[2018-03-20] MEDS: Sertraline 50 MG Tablet PO SCH (09:32)
[2018-03-20] MEDS: Divalproex 125 MG Sprinkles Capsule PO SCH ×4 (09:32→21:56)
[2018-03-20] MEDS: Enoxaparin Inj 40 MG/0.4 ML Syringe SQ SCH (15:16)
--- NOTE | 2018-03-20 18:37 | P.PNPSY ---
Subjective Remarks: Patient seen for follow up; chart reviewed. Discussion with nursing staff reported that patient with no behavioral issues, has been pleasant with staff and cooperative. Patient was found lying hospital bed noted B, cooperative. Patient states that he had difficulty with sleeping less evening although did not request any diphenhydramine for assistance. Patient reports his mood has been "good" reports that the patient was quiet but good, reports attending groups, reports feeling depressed "very little" denying any perceptional services or delusions at this time. Review of Systems All other systems reviewed negative except as stated in HPI Mental Status Examination Appearance: Appropriate Consciousness: Alert Orientation: Person, Place, Date/Time Motor Activity: Abnormal gait Speech: Slow Language: Adequate Fund of Knowledge: Inadequate Attention and Concentration: Adequate Memory: Unremarkable Mood: Appropriate Affect: Appropriate Thought Process & Associations: Other ([place]) Thought Content: Appropriate, Hallucinations Hallucination Type: Auditory Delusion Type: None Suicidal Ideation: No Suicidal Plan: No Suicidal Intention: No Homicidal Ideation: No Homicidal Plan: No Homicidal Intention: No Insight: Poor Judgment: Poor Assessment and Plan - Assessment (1) Schizophrenia Code(s): F20.9 - Schizophrenia, unspecified Status: Chronic - Plan Plan: Patient continues with stable mood, denying any perceptional disturbances or delusions. We will continue current treatment. We will continue to monitor mood and behavior. Discharge planning in progress. Justification for Continued Inpatient Stay: At risk of further decompensation at lower level of care. (1) Schizophrenia Qualifiers: Schizophrenia type: paranoid schizophrenia Qualified Code(s): F20.0 - Paranoid schizophrenia
[2018-03-21 07:07] LABS: Baso # (Auto) 0.1 th/mm3 (0.0-0.2); Baso % (Auto) 2.1 % (0.0-2.0); Eos # (Auto) 0.2 th/mm3 (0.0-0.4); Eos % (Auto) 3.7 % (0.0-4.0); Hematocrit 37.5 % (39.0-51.0); Hemoglobin 12.7 gm/dL (13.0-17.0); Lymph # (Auto) 1.2 th/mm3 (1.0-4.8); Mean Corpuscular HGB Conc 33.8 % (32.0-36.0); Mean Corpuscular Hemoglobin 31.2 pg (27.0-34.0); Mean Corpuscular Volume 92.4 fL (80.0-100.0); Mean Platelet Volume 8.3 fL (7.0-11.0); Mono # (Auto) 0.6 th/mm3 (0.0-0.9); Mono % (Auto) 9.9 % (0.0-8.0); Neut # (Auto) 3.8 th/mm3 (1.8-7.7); Neut % (Auto) 64.3 % (16.0-70.0); Platelet Count 155 th/mm3 (150-450); Red Blood Count 4.06 mil/mm3 (4.50-5.90); Red Cell Distribution Width 15.9 % (11.6-17.2)
[2018-03-21 07:37] LABS: Albumin 2.9 g/dL (3.4-5.0); Blood Urea Nitrogen 15 mg/dL (7-18); Chloride 105 meq/L (98-107); Glucose,Random 83 mg/dL (74-106); Potassium 4.1 meq/L (3.5-5.1); Sodium 142 meq/L (136-145)
[2018-03-21 07:41] LABS: Alanine Aminotransferase 20 U/L (12-78); Alkaline Phosphatase 88 U/L (45-117); Anion Gap 9 meq/L (5-15); Aspartate Aminotransferase 10 U/L (15-37); Calcium 8.2 mg/dL (8.5-10.1); Carbon Dioxide 28.5 meq/L (21.0-32.0); Glomerular Filtration Rate Greater Than 89 mL/min (>89); Total Protein 6.9 g/dL (6.4-8.2); Valproic Acid 83 mcg/mL (50-100)
[2018-03-21] MEDS: amLODIPine 5 MG Tablet PO SCH (10:23)
[2018-03-21] MEDS: Divalproex 125 MG Sprinkles Capsule PO SCH ×4 (10:23→21:21)
[2018-03-21] MEDS: Sertraline 50 MG Tablet PO SCH (10:23)
[2018-03-21] MEDS: QUEtiapine 25 MG Tablet PO SCH ×2 (10:25→21:22)
[2018-03-21] MEDS: Enoxaparin Inj 40 MG/0.4 ML Syringe SQ SCH (18:38)
--- NOTE | 2018-03-21 23:46 | P.PNPSY ---
Subjective Remarks: Patient seen for follow up; chart reviewed. Discussion with nursing staff reported patient continues with cooperation and compliance. Patient was found lying hospital bed noted B, cooperative. Patient states that he is feeling "good", denying any physical complaints at this time, reports eating and drinking well with adequate bowel movement. Patient states that he continues to be interested in attending groups and activities. Patient was advised that he is possibly being discharged to accepting facility which he was happy about. Review of Systems All other systems reviewed negative except as stated in HPI Mental Status Examination Appearance: Appropriate Consciousness: Alert Orientation: Person, Place, Date/Time Motor Activity: Abnormal gait Speech: Slow Language: Adequate Fund of Knowledge: Inadequate Attention and Concentration: Adequate Memory: Unremarkable Mood: Appropriate Affect: Appropriate Thought Process & Associations: Other ([place]) Thought Content: Appropriate Hallucination Type: None Delusion Type: None Suicidal Ideation: No Suicidal Plan: No Suicidal Intention: No Homicidal Ideation: No Homicidal Plan: No Homicidal Intention: No Insight: Poor Judgment: Poor Assessment and Plan - Assessment (1) Schizophrenia Code(s): F20.9 - Schizophrenia, unspecified Status: Chronic - Plan Plan: Patient continues with good behavioral control, no episodes of agitation, no suicidality or homicidality, denying any perceptional services. Patient to continue current treatment. Continue to monitor mood and behavior. Discharge planning in progress. Patient likely for discharge tomorrow to accepting facility. Justification for Continued Inpatient Stay: At risk of further decompensation at lower level of care. (1) Schizophrenia Qualifiers: Schizophrenia type: paranoid schizophrenia Qualified Code(s): F20.0 - Paranoid schizophrenia
[2018-03-22 06:48] VITALS: BP 103/57; PULSE 66; RESP 16; TEMP 98.1; O2SAT 92
[2018-03-22] MEDS: Sertraline 50 MG Tablet PO SCH (10:46)
[2018-03-22] MEDS: Divalproex 125 MG Sprinkles Capsule PO SCH ×2 (10:47→14:34)
[2018-03-22] MEDS: QUEtiapine 25 MG Tablet PO SCH (10:48)
[2018-03-22] MEDS: amLODIPine 5 MG Tablet PO SCH (10:50)
--- NOTE | 2018-03-22 18:18 | P.DSPSY ---
Psychiatry Discharge Summary Inpatient Psychiatric care?: Yes Advance Directives: No Mental Health Advance Directive: No Health Care Proxy: No - Admission Admission Date: February 22, 2018 20:00 - Admission Diagnosis (1) Schizophrenia Code(s): F20.9 - Schizophrenia, unspecified Brief History: Patient is a 62-year-old man, domiciled that [facility] assisted living facility, recently discharged from inpatient psychiatry unit to [facility] and rehab, with a past psychiatric history of schizophrenia and dementia, with previous psychiatric admissions, with a past medical history significant for hypothyroidism who was initially brought to the ED under [place] act due to ongoing suicidal homicidal ideations which patient was initially admitted to the medical's service for possible seizure-like activity and while on the medical service psychiatry was consulted for evaluation and was subsequently admitted to the inpatient psychiatry unit for further evaluation and management psychosis. Recent psychiatry consult by Dr. Julian noted: The patient is a 62-year-old male with a Past psychiatry history of Schizophrenia, Major depression, Anxiety and Dementia, multiple psychiatry admission, s who was sent to the ER from intermediate for AMS and seizure like activity. Pt recently d/c'd from [facility] on 02/15/18 for AMS and management of psychosis, started on Olanzapine and titrated to 10mg qd and 15mg qhs, Diphenhydramine 25mg bid and Mirtazapine 15mg qhs. He as seen by neurology them for tremors, recommendations were : tremors are mild, intermittent and no cogwheeling rigiditywould avoid adding dopaminergic medications as these can increase confusion and hallucinations. would hold benztropine or try to lower dose if possible as this can also contribute to hallucinations agree with psychiatry consult. Brought his time from facility pt w/ ongoing suicidal/ homicidal ideations and hallucinations, brought to ER under [place] Act. While en route, pt noted to have shaking episodes w/ possible seizure like activity. Neurology consulted, recommended further evaluation. Pt unable to provide much history. On arrival, BP 116/60, HR 88, O2 sat 95% on RA, Afebrile. Hemoglobin 12.5. Chemistry unremarkable except for dehydration, BUN 21. CPK 1661. UA negative for UTI. Urine Drug Screen negative. Alcohol negative. CT Head with no acute findings. CXR negative. Consulted to psychiatry to address psychosis. There is a patient that I admitted about 2 weeks ago, he was just recently discharged from psychiatry before yesterday. He was initially admitted last time due to increased visual hallucinations and paranoia. Today the patient is selectively mute, oppositional, resistant, refusing to cooperate with the evaluation. He continuously move his hands without no purpose, was seems to be quite bizarre behavior. I have tried to engage the patient in a conversation several times, but the patient does not answer my questions. To be internally preoccupied and paranoid. Patient during medical admission was started on Trileptal 150 mg p.o. twice daily for seizure disorder, and managed for rhabdomyolysis, recently discharged from the medical service and transferred to the inpatient psychiatry unit for further psychiatric evaluation and management. Patient was found lying hospital bed during interview noted to be calm, cooperative. Patient was then noted to be in acute distress during interview, stated that he is feeling "okay " stating that he was previously at [facility] but did not elaborate on reasons why he was readmitted back to the hospital. Patient states he is eating and drinking well, no difficulty with bowel movement. Patient stated his mood has been "good" denying any suicidal homicidal ideations, denying any perceptual disturbances or delusions at this time. Patient states that it is birthday today and he looks forward to seeing his sister for visitation later today. Patient later was noted to be walking with his walker on the unit and had a return back to his room which behavioral tech noted patient having seizure -like activity and upon evaluation was. To be having another seizure which patient was given Ativan 2 mg IM 1 and concern for possible strokelike symptoms had a stroke alert activated which patient was discharged from the psychiatry service to medical ICU for further evaluation and medical management. Communication with [facility] hospitalist Dr. Perez and neurologist Dr. Khan was established which coordination with staff have patient transferred to the ICU for further evaluation and management. Patient was discharged to the medical service and transferred. Tobacco Use In Past 30 Days: No How Often Do You Have a Drink Containing Alcohol: Never Hospital Course: Patient is a 63 y/o man, single, domiciled at [facility], with past psychiatric history of schizophrenia, prior psychiatric admissions, recently discharged from psychiatric inpatient unit here at [facility] on 02/15/18 for AMS and psychosis and returned to the ED shortly thereafter under [place] Act due to suicidal and homicidal ideations and hallucinations as well as noted to have seizure like activity which patient was admitted to the inpatient psychiatry unit for further evaluation and management. Patient during intitial part of admission was found to have had seizure activity which he was transferred to the medical service and started on anti-seizure medications and transferred back to the psychiatry unit. Patient was resumed on his medications which he tolerated well with no adverse drug reactions. He was observed by staff not to have had any behavioral disturbances, nor made any further suicidal or homicidal ideation and able to reach and maintain stable mood during admission and was noted to participate with staff adequately. Patient was noted to participate in self-care, engaged with staff and maintaining adequate hygiene. Patient reported feeling good, denied any further depressive or psychotic symptoms and agreed to continue outpatient follow-up. Treatment team was able to set up outpatient follow-up appointments which patient can continue for continuity of care as well as locate a residential facility which he would be transferred to after discharge. Upon discharge patient stated feeling "good" reported feeling well with treatment, agreed to continue treatment and his sister in concordance with plan. Patient from a mental health perspective no longer met criteria for continued inpatient level of care. Patient denied any SI , HI, perceptual disturbances or delusions. Weighing the acute, chronic, and protective factors and based on the available evidence, I horse show judge to a reasonable degree of medical certainty that the patient is at low imminent risk of harm to self or others for mental illness as defined under the Chavez act and his level of function is adequate as observed on the unit for planned level of outpatient care. Patient was counseled regarding warning signs for need to return to the psychiatric emergency room as part of the general safety plan. Patient advised to call 911 or go to nearest ED in case of emergency. Patient agrees with plan. - Discharge Discharge Date: 03/22/18 - Discharge Diagnosis (1) Schizophrenia Code(s): F20.9 - Schizophrenia, unspecified Status: Chronic Discharge Disposition: Assisted Living Facility - Discharge Instructions Discharge Diet: Heart Healthy Diet Activities You Can Perform: Regular- No Restrictions - Discharge Time > 30 minutes Mental Status Examination Appearance: Appropriate Consciousness: Alert Orientation: Person, Place, Date/Time Motor Activity: Abnormal gait Speech: Slow Language: Adequate Fund of Knowledge: Inadequate Attention and Concentration: Adequate Memory: Unremarkable Mood: Appropriate Affect: Appropriate Thought Process & Associations: Other ([place]) Thought Content: Appropriate Hallucination Type: None Delusion Type: None Suicidal Ideation: No Suicidal Plan: No Suicidal Intention: No Homicidal Ideation: No Homicidal Plan: No Homicidal Intention: No Insight: Poor Judgment: Poor Discharge/Advance Care Plan - Results Vital Signs: Last Vital Signs Temp 98.1 F 03/22/18 06:00 Pulse 66 03/22/18 06:00 Resp 16 03/22/18 06:00 BP 103/57 L 03/22/18 06:00 Pulse Ox 92 L 03/22/18 06:00 Lab Results: Laboratory Results Hemoglobin A1c 6.0 % (4.3-6.0) 02/24/18 09:13 Triglycerides 56 mg/dL (42-150) 02/24/18 09:13 Cholesterol 138 mg/dL (120-200) 02/24/18 09:13 LDL Cholesterol, Calc 73 mg/dL (0-99) 02/24/18 09:13 HDL Cholesterol 53.8 mg/dL (40.0-60.0) 02/24/18 09:13 Valproic Acid 83 mcg/mL (50-100) 03/21/18 06:22 Summary of Procedures: none Pending Results: None - Medications Number of antipsychotic medications at discharge: 1 - Discharge Care Plan Goals to Promote Your Health: * To prevent worsening of your condition and complications * To maintain your health at the optimal level Directions to Meet Your Goals: Take your medications as prescribed Follow your dietary instruction Follow activity as directed Keep your appointments as scheduled Take your immunizations and boosters as scheduled If your symptoms worsen call your PCP, if no PCP go to Urgent Care Center or Emergency Room For 24/01 questions related to your inpatient stay or results of tests pending at discharge, please contact Dr. Jere Flores MD at Smoking is Dangerous to Your Health. Avoid second hand smoking (1) Schizophrenia Qualifiers: Schizophrenia type: paranoid schizophrenia Qualified Code(s): F20.0 - Paranoid schizophrenia (1) Schizophrenia Qualifiers: Schizophrenia type: paranoid schizophrenia Qualified Code(s): F20.0 - Paranoid schizophrenia
== END 2018-03-22 15:00 ==
LOC: H4EA 20:00 → H250 03-19 18:26
PROVIDERS: ADMIT Student in an Organized Health Care Education/Training Program; ATTEND Student in an Organized Health Care Education/Training Program